=== PATIENT | male | born 1955 | race Caucasian/White ===

== ENCOUNTER 2019-07-23 10:16 | Outpatient (CLI) | payer BC, SELFPAY ==
[2019-07-23 10:37] LABS: Basophils Absolute Auto 0.1 K/mm3 (0.0-0.1); Basophils Percent Auto 1.4 % (0.2-1.2); Eosinophils Absolute Auto 0.2 K/mm3 (0-0.3); Eosinophils Percent Auto 4.7 % (0-4.4); Hematocrit 47.3 % (42.0-52.0); Hemoglobin 15.7 g/dL (14.0-18.0); Immature Granulocyte Absolute 0.01 K/mm3 (0.00-0.031); Immature Granulocyte Percent A 0.2 % (0-0.5); Lymphocytes Absolute Auto 1.47 K/mm3 (0.9-3.2); Lymphocytes Percent Auto 30.3 % (18.3-44.2); Mean Corpuscular HGB Conc 33.2 g/dl (32-36); Mean Corpuscular Hemoglobin 30.9 pg (26-34); Mean Corpuscular Volume 93.1 fl (80-100); Mean Platelet Volume 9.1 fl (7.4-10.4); Monocytes Absolute Auto 0.5 K/mm3 (0.1-0.6); Monocytes Percent Auto 10.9 % (2.6-8.5); Neutrophils Absolute Auto 2.5 K/mm3 (1.3-6.7); Neutrophils Percent Auto 52.5 % (45.5-73.1); Platelet Count Result 199 k/mm3 (150-375); Red Blood Count 5.08 M/mm3 (4.6-6.20); Red Cell Distribution Width 13.8 % (11.5-14.5); White Blood Count 4.9 K/mm3 (4.5-10.0)
[2019-07-23 10:49] LABS: Blood Urea Nitrogen 9 mg/dL (9-20); Calcium 9.2 mg/dL (8.4-10.2); Carbon Dioxide 30 mmol/L (22-30); Chloride 99 mmol/L (98-107); Cholesterol 116 mg/dL (0-200); Estimated Glomerular Filt Rate > 60; Glucose 116 mg/dL (75-110); HDL Direct 55 mg/dL; Potassium 3.9 mmol/L (3.4-5.0); Sodium 139 mmol/L (137-145); Triglycerides 95 mg/dL (<150)
[2019-07-23 10:53] LABS: Hemoglobin A1C 6.6 % (<5.7)
[2019-07-23 11:00] LABS: LDL Cholesterol Direct 45 mg/dL
[2019-07-23 11:18] LABS: Prostate Specific Antigen 2.5 ng/mL (< OR = 4.0)
[2019-07-25 13:18] LABS: Homocysteine 13.3 umol/L (<11.4)
== END 2019-07-23 10:17 | disposition home or self-care (01) ==
PROVIDERS: PCP Internal Medicine; Visit Provider Internal Medicine
DX: Z51.81 Encounter for therapeutic drug level monitoring (principal); Z12.5 Encounter for screening for malignant neoplasm of prostate; E78.2 Mixed hyperlipidemia; E11.9 Type 2 diabetes mellitus without complications
CPT/HCPCS: 36415; 80048; 80061; 83036; 83090; 84153; 84443; 85025

== ENCOUNTER 2019-11-24 10:15 | Outpatient (CLI) | payer BC, SELFPAY ==
[2019-11-24 11:17] LABS: Blood Urea Nitrogen 14 mg/dL (9-20); Carbon Dioxide 29 mmol/L (22-30); Chloride 102 mmol/L (98-107); Cholesterol 128 mg/dL (0-200); Estimated Glomerular Filt Rate > 60; Glucose 120 mg/dL (75-110); HDL Direct 68 mg/dL; Potassium 4.2 mmol/L (3.4-5.0); Sodium 138 mmol/L (137-145); Triglycerides 90 mg/dL (<150)
[2019-11-24 11:28] LABS: LDL Cholesterol Direct 46 mg/dL
[2019-11-24 11:45] LABS: Hemoglobin A1C 6.5 % (<5.7)
[2019-11-26 13:56] LABS: Homocysteine 13.6 umol/L (<11.4)
== END 2019-11-24 10:16 | disposition home or self-care (01) ==
PROVIDERS: PCP Internal Medicine; Visit Provider Internal Medicine
DX: R79.89 Other specified abnormal findings of blood chemistry (principal); E11.9 Type 2 diabetes mellitus without complications; Z79.899 Other long term (current) drug therapy
CPT/HCPCS: 36415; 80048; 80061; 83036; 83090

== ENCOUNTER 2019-12-30 01:13 | Outpatient (CLI) | payer BC, SELFPAY ==
[2019-12-30 18:35] LABS: SARS-CoV-2 RNA PCR Negative
== END 2019-12-30 01:14 | disposition home or self-care (01) ==
LOC: ANHCOVIDDT 01:13
PROVIDERS: PCP Internal Medicine; Visit Provider Urology
DX: Z01.812 Encounter for preprocedural laboratory examination (principal); Z11.59 Encounter for screening for other viral diseases
CPT/HCPCS: 87635; C9803; U0003

== ENCOUNTER 2019-12-30 08:09 | Outpatient (CLI) | payer BC, SELFPAY ==
[2019-12-30 08:48] LABS: INR 1.1; Prothrombin Time 13.6 Seconds (11.1-14.7)
[2019-12-30 08:49] LABS: Partial Thromboplastin Time 38.3 SECONDS (22.3-36.8)
== END 2019-12-30 08:10 | disposition home or self-care (01) ==
PROVIDERS: Anesthesiology; PCP Internal Medicine; Visit Provider Urology
DX: Z01.818 Encounter for other preprocedural examination (principal); E78.00 Pure hypercholesterolemia, unspecified; Z79.899 Other long term (current) drug therapy
CPT/HCPCS: 36415; 85610; 85730

== ENCOUNTER 2020-03-15 09:29 | Outpatient (CLI) | payer BC, SELFPAY ==
[2020-03-15 10:11] LABS: Hemoglobin A1C 6.2 % (<5.7)
[2020-03-15 10:14] LABS: Alanine Aminotransferase 37 U/L (4-50); Albumin Level 4.5 g/dL (3.5-5.1); Alkaline Phosphatase 37 U/L (38-126); Anion Gap 5 mmol/L (8-16); Aspartate Amino Transferase 37 U/L (17-59); Bilirubin,Total 0.3 mg/dL (0.2-1.3); Blood Urea Nitrogen 14 mg/dL (9-20); Calcium 9.3 mg/dL (8.4-10.2); Carbon Dioxide 35 mmol/L (22-30); Chloride 101 mmol/L (98-107); Cholesterol 130 mg/dL (0-200); Estimated Glomerular Filt Rate > 60; Glucose 119 mg/dL (75-110); HDL Direct 57 mg/dL; Potassium 4.3 mmol/L (3.4-5.0); Sodium 141 mmol/L (137-145); Triglycerides 107 mg/dL (<150)
[2020-03-15 10:25] LABS: LDL Cholesterol Direct 48 mg/dL
== END 2020-03-15 09:30 | disposition home or self-care (01) ==
PROVIDERS: PCP Internal Medicine; Visit Provider Internal Medicine
DX: E11.9 Type 2 diabetes mellitus without complications (principal); Z79.899 Other long term (current) drug therapy
CPT/HCPCS: 36415; 80053; 80061; 83036; 84443

== ENCOUNTER 2020-04-12 14:32 | Outpatient (CLI) | payer BC, SELFPAY ==
[2020-04-12 15:03] LABS: INR 2.7; Prothrombin Time 28.8 Seconds (11.1-14.7)
[2020-04-12 15:04] LABS: Partial Thromboplastin Time 38.8 SECONDS (22.3-36.8)
== END 2020-04-12 14:33 | disposition home or self-care (01) ==
LOC: ANHSURGERY 14:33
PROVIDERS: Anesthesiology; PCP Internal Medicine; Visit Provider Urology
DX: Z01.812 Encounter for preprocedural laboratory examination (principal); D68.51 Activated protein C resistance; N40.0 Benign prostatic hyperplasia without lower urinary tract symptoms
CPT/HCPCS: 36415; 85610; 85730

== ENCOUNTER 2020-04-19 00:08 | Outpatient (CLI) | payer BC, SELFPAY ==
[2020-04-19 20:45] LABS: SARS-CoV-2 RNA PCR Negative
== END 2020-04-19 00:09 | disposition home or self-care (01) ==
LOC: ANHCOVIDDT 00:09
PROVIDERS: PCP Internal Medicine; Visit Provider Urology
DX: Z01.812 Encounter for preprocedural laboratory examination (principal)
CPT/HCPCS: 87635; C9803; U0003

== ENCOUNTER 2020-04-22 00:29 | Day surgery (SDC) | payer BC, SELFPAY ==
--- NOTE | 2019-12-25 14:41 | PM.HPGS ---
History of Present Illness History of Present Illness Consent: Risks, benefits, and alternatives have been discussed and questions answered. Patient agrees to proceed with procedure. Chief complaint: BPH Narrative: Truman Cleaning is a 64 year old male with progressive prostatism becoming refractory to oral meds. After multiple long discussion about surgical options, he's elected for UroLift Review of Systems Cardiovascular: Cardiovascular: Denies chest pain, Denies lightheadedness, Denies palpitations and Denies dyspnea Respiratory: Respiratory: Denies dyspnea Gastrointestinal: Gastrointestinal: Denies diarrhea, Denies nausea and Denies vomiting Genitourinary: Genitourinary: Denies hematuria and Denies dysuria Endocrine: Endocrine: Denies palpitations PMFSH Past Medical History Medical History BMI 30.0-30.9,adult BPH (benign prostatic hyperplasia) Elevated homocysteine Encounter for general adult medical examination w/o abnormal findings Encounter for special screening examination for neoplasm of prostate Encounter for therapeutic drug level monitoring Factor 5 Leiden mutation, heterozygous On half-way drug therapy Skin lesion Squamous cell carcinoma Type 2 diabetes mellitus without complication Family History Family History Father Family history of diabetes mellitus in first degree relative Grandparent Diabetes mellitus Social History Social History Smoking status: Never smoker Second hand tobacco smoke exposure: No Alcohol intake: never Meds Home Medications and Allergies Home Medications Medication Instructions Recorded Confirmed Type ascorbate calcium (vitamin C) 500 500 mg PO DAILY 04/07/19 12/08/19 History mg tablet calcium carbonate 600 mg calcium 600 mg PO BID 04/07/19 12/08/19 History (1,500 mg) tablet multivitamin 1 tablet PO DAILY 04/07/19 12/08/19 History omega-3 fatty acids 1,000 mg 2,000 mg PO BID cap 04/07/19 12/08/19 History capsule turmeric 400 mg capsule mg PO 04/07/19 12/08/19 History finasteride 5 mg tablet 5 mg PO DAILY #90 tablet 08/04/19 12/08/19 Rx folic acid 1 mg tablet 1 mg PO DAILY #90 tablet 08/04/19 12/08/19 Rx niacin 1,000 mg tablet,extended 2,000 mg PO DAILY #180 tablet 08/04/19 12/08/19 Rx release rosuvastatin 5 mg tablet 5 mg PO DAILY #90 tablet 08/04/19 12/08/19 Rx metformin 500 mg tablet 500 mg PO BID #180 tablet 10/28/19 12/08/19 Rx calcium polycarbophil 625 mg tablet 2,500 mg PO DAILY tablet 12/08/19 12/08/19 History warfarin 1 mg tablet 1 mg PO DAILY #90 tablet 12/22/19 Rx warfarin 2 mg tablet 2 mg PO DAILY #90 tablet 12/22/19 Rx warfarin 5 mg tablet 5 mg PO DAILY #90 tablet 12/22/19 Rx enoxaparin 100 mg/mL subcutaneous 90 mg SUB-Q Q12H #20 syr 12/23/19 Rx syringe Allergies Allergy/AdvReac Type Severity Reaction Status Date / Time No Known Allergies Allergy Mild Verified 12/08/19 07:39 Exam Const: General: no acute distress Resp: Effort & Inspection: normal respiratory effort GI: Inspection: non-distended GI Palp: No abdominal tenderness and No Guarding due to palpation present (GI) Auscultation: normal bowel sounds Assessment and Plan Assessment and plan (1) BPH (benign prostatic hyperplasia): Qualifiers: Lower urinary tract symptom presence: unspecified whether lower urinary tract symptoms present Qualified Code(s): N40.0 - Benign prostatic hyperplasia without lower urinary tract symptoms Code(s): N40.0 - Benign prostatic hyperplasia without lower urinary tract symptoms Status: Acute Assessment and Plan: UroLift We've discussed alternative treatment options for bladder outlet obstruction, including TURP, Rezum, Green light laser and Urolift and he's elected for the later. He's aware of risks including, but not limi
[2019-12-26 09:26] VITALS: BMI 29.7
[2020-04-12 08:27] VITALS: BMI 30.5
--- NOTE | 2020-04-12 16:42 | PM.HPGS ---
History of Present Illness History of Present Illness Consent: Risks, benefits, and alternatives have been discussed and questions answered. Patient agrees to proceed with procedure. Chief complaint: BPH Narrative: Truman Cleaning is a 65 year old male Who is well known to our practice with a longstanding history of BPH dating back to at least 2015. He has failed attempts at medical management both with alpha blockers and 5 alpha reductase inhibitors. After discussion of therapeutic options he has elected for a Urolift. Cystoscopy in November 2019 revealed lateral lobe hyperplasia without a significant median lobe. Prostate volume by ultrasound was 29.6 cc. Last PSA in November 2019 was 2.5. Review of Systems Cardiovascular: Cardiovascular: Denies chest pain, Denies lightheadedness, Denies palpitations and Denies dyspnea Respiratory: Respiratory: Denies dyspnea Gastrointestinal: Gastrointestinal: Denies diarrhea, Denies nausea and Denies vomiting Genitourinary: Genitourinary: Denies hematuria and Denies dysuria Endocrine: Endocrine: Denies palpitations PMFSH Past Medical History Medical History BMI 30.0-30.9,adult BPH (benign prostatic hyperplasia) Elevated homocysteine Encounter for general adult medical examination w/o abnormal findings Encounter for special screening examination for neoplasm of prostate Encounter for therapeutic drug level monitoring Factor 5 Leiden mutation, heterozygous On nursing home drug therapy Skin lesion Squamous cell carcinoma Type 2 diabetes mellitus without complication Family History Family History Father Family history of diabetes mellitus in first degree relative Grandparent Diabetes mellitus Social History Social History Smoking status: Never smoker Second hand tobacco smoke exposure: No Alcohol intake: never Spiritual care concerns: No Meds Home Medications and Allergies Home Medications Medication Instructions Recorded Confirmed Type ascorbate calcium (vitamin C) 500 500 mg PO DAILY 04/07/19 04/12/20 History mg tablet calcium carbonate 600 mg calcium 600 mg PO BID 04/07/19 04/12/20 History (1,500 mg) tablet multivitamin 1 tablet PO DAILY 04/07/19 04/12/20 History omega-3 fatty acids 1,000 mg 2,000 mg PO BID cap 04/07/19 04/12/20 History capsule turmeric 400 mg capsule 400 mg PO DAILY 04/07/19 04/12/20 History niacin 1,000 mg tablet,extended 2,000 mg PO DAILY #180 tablet 08/04/19 04/12/20 Rx release metformin 500 mg tablet 500 mg PO BID #180 tablet 10/28/19 04/12/20 Rx calcium polycarbophil 625 mg tablet 2,500 mg PO DAILY tablet 12/08/19 04/12/20 History cyanocobalamin (vitamin B-12) 1,000 mcg PO DAILY 12/26/19 04/12/20 History [Vitamin B-12] rosuvastatin 5 mg PO EVERY OTHER DAY 12/26/19 04/12/20 History blood sugar diagnostic #100 each 02/17/20 Rx enoxaparin 30 mg/0.3 mL 88 mg SUBCUT Q12H 14 Days #3 ml 04/12/20 Rx subcutaneous syringe finasteride 5 mg PO HS 04/12/20 04/12/20 History folic acid 1 mg PO BID 04/12/20 04/12/20 History warfarin 8 mg PO DAILY 04/12/20 04/12/20 History Allergies Allergy/AdvReac Type Severity Reaction Status Date / Time No Known Allergies Allergy Mild Verified 04/12/20 08:06 Exam Const: General: no acute distress Resp: Effort & Inspection: normal respiratory effort GI: Inspection: non-distended GI Palp: No abdominal tenderness and No Guarding due to palpation present (GI) Auscultation: normal bowel sounds Assessment and Plan Assessment and plan (1) BPH (benign prostatic hyperplasia): Qualifiers: Lower urinary tract symptom presence: unspecified whether lower urinary tract symptoms present Qualified Code(s): N40.0 - Benign prostatic hyperplasia without lower urinary tract symptoms Code(s): N40.0 - Benign prostatic
[2020-04-22 06:08] VITALS: BP 125/75; PULSE 70; RESP 20; TEMP 36.4; O2SAT 99
[2020-04-22] MEDS: LACTATED RINGERS 1,000 ML 30 ML IV CONT (06:29)
--- NOTE | 2020-04-22 06:45 | WPDHPUPDATE1 ---
History and Physical Update Update Date/Time: 04/22/20 06:45 History and Physical has been reviewed, including an updated exam of the patient. There are NO changes in the patient's condition. Risks, benefits, and alternatives have been discussed and questions answered. Patient agrees to proceed with procedure.
--- NOTE | 2020-04-22 06:46 | WPDANESEPPF ---
Anes - Initial Pre Proc Eval Procedure: Operation Date: 04/22/20 07:30 Proposed Procedures p Urolift - Bayron Thibodeaux MD Date/Time: 04/22/20 06:46 Surgeon: Bayron Thibodeaux MD Pre Op Diagnosis: BPH Patient Data Age: 65 Gender: M Height: 5 ft 7 in Weight: 88.45 kg Allergies Allergy/AdvReac Type Severity Reaction Status Date / Time No Known Allergies Allergy Mild Verified 04/12/20 08:06 Home Medications Medication Instructions Recorded Confirmed Type ascorbate calcium (vitamin C) 500 500 mg PO DAILY 04/07/19 04/12/20 History mg tablet calcium carbonate 600 mg calcium 600 mg PO BID 04/07/19 04/12/20 History (1,500 mg) tablet multivitamin 1 tablet PO DAILY 04/07/19 04/12/20 History omega-3 fatty acids 1,000 mg 2,000 mg PO BID cap 04/07/19 04/12/20 History capsule turmeric 400 mg capsule 400 mg PO DAILY 04/07/19 04/12/20 History niacin 1,000 mg tablet,extended 2,000 mg PO DAILY #180 tablet 08/04/19 04/12/20 Rx release metformin 500 mg tablet 500 mg PO BID #180 tablet 10/28/19 04/12/20 Rx calcium polycarbophil 625 mg tablet 2,500 mg PO DAILY tablet 12/08/19 04/12/20 History cyanocobalamin (vitamin B-12) 1,000 mcg PO DAILY 12/26/19 04/12/20 History [Vitamin B-12] rosuvastatin 5 mg PO EVERY OTHER DAY 12/26/19 04/12/20 History blood sugar diagnostic #100 each 02/17/20 Rx folic acid 1 mg PO BID 04/12/20 04/12/20 History warfarin 8 mg PO DAILY 04/12/20 04/12/20 History finasteride 5 mg tablet See Rx Instructions .ROUTE 04/13/20 Rx .COMPLEX #30 tablet enoxaparin 80 mg/0.8 mL 80 mg SUBCUT Q12H 7 Days #14 syr 04/21/20 Rx subcutaneous syringe Patient hx anesthesia problems: none Family hx anesthesia problems: none PMFSH Past Medical History Medical History BMI 30.0-30.9,adult BPH (benign prostatic hyperplasia) Elevated homocysteine Encounter for general adult medical examination w/o abnormal findings Encounter for special screening examination for neoplasm of prostate Encounter for therapeutic drug level monitoring Factor 5 Leiden mutation, heterozygous On intermission coordinator drug therapy Skin lesion Squamous cell carcinoma Type 2 diabetes mellitus without complication Family History Family History Father Family history of diabetes mellitus in first degree relative Grandparent Diabetes mellitus Social History Social History Smoking status: Never smoker Second hand tobacco smoke exposure: No Alcohol intake: never Living arrangements: with family Spiritual care concerns: No Anes - Eval Final PreProcedure Day of Procedure 04/22/20 06:46 Patient weight: obese Heart: regular rate and rhythm Lungs: clear to auscultation Airway: Mallampati scale class II Neurological: alert and oriented Last oral intake: >/= 8 hours ASA classification: III Emergent: no Anesthetic plan: proceed Anesthesia type and monitoring: general GIVS and standard monitoring Informed Consent: The patient's anesthetic plan and its attendant risks and benefits were discussed with the patient/family/POA. Questions were solicited and answers provided to the satisfaction of the patient/family/POA.
[2020-04-22 06:52] LABS: Glucose Point of Care 113 (65-105)
[2020-04-22] MEDS: ceFAZolin 2 GM/D5W 50 ML 2 GM/50 ML BAG IVPB (07:19)
[2020-04-22] MEDS: LIDOCAINE HCL 2% GEL UROJET 10 ML PKG MUCOUS MEM (07:27)
--- NOTE | 2020-04-22 07:48 | P.OP_ITS ---
Procedure Note - Detailed Date of procedure: 04/22/20 Pre-op diagnosis: BPH Post-op diagnosis: same Procedure performed: UroLift Description of procedure: The patient was prepped and draped in a routine fashion after the uneventful induction of a general LMA anesthetic. A 20F cystoscope was inserted into the bladder. The cystoscopy bridge was replaced with a UroLift delivery device. The first treatment site was the patient's right side approximately 1.5cm distal to the bladder neck. The distal tip of the delivery device was then angled laterally approximately 20 degrees at this position to compress the lateral lobe. The trigger was pulled, thereby deploying a needle containing the implant through the prostate. The needle was then retracted, allowing one end of the implant to be delivered to the capsular surface of the prostate. The implant was then tensioned to assure capsular seating and removal of slack monofilament. The device was then angled back toward midline and slowly advanced proximally (typically 3 to 4 mm) until cystoscopic verification of the monofilament being centered in the delivery bay. The urethral end piece was then affixed to the monofilament thereby tailoring the size of the implant. Excess filament was then severed. The delivery device was then re-advanced into the bladder. The delivery device was then replaced with cystoscope and bridge and the implant location and opening effect was conf irmed cystoscopically. The same procedure was then repeated on the left side, and two additional implants were delivered just proximal to the verumontanum, again one on right and one on left side of the prostate, following the same technique. Therefore, a total of 4 implants were delivered. A final cystoscopy was conducted first to inspect the location and state of each implant and second, to confirm the presence of a continuous anterior channel was present through the prostatic urethra with irrigation flow turned off. The bladder was then filled with 150 cc irrigation fluid to assist the patient in void trial after the procedure, and all instruments were removed. At this point the cystoscope was removed and the patient was taken to the PACU in good condition. Anesthesia: GLMA Surgeon: Bayron Thibodeaux MD Estimated blood loss (mL): 0 Drains: No Packing: No Pathology: none sent Complications: No immediate complications Condition: stable Disposition: PACU
[2020-04-22 07:49] VITALS: BP 88/66; PULSE 65; RESP 10
[2020-04-22 08:00] VITALS: BP 96/61; PULSE 63; RESP 20; O2SAT 97
[2020-04-22 08:30] VITALS: BP 95/66; PULSE 58; RESP 20
--- NOTE | 2020-04-22 08:44 | SUR.PHASEII ---
[id number] - dr. blake in room talking with pt
[2020-04-22 09:00] VITALS: BP 109/75; PULSE 58; RESP 20
== END 2020-04-22 09:18 | disposition home or self-care (01) ==
PROVIDERS: PCP Internal Medicine; Visit Provider Urology
PROC: 0T7D8DZ Dilation of Urethra with Intraluminal Device, Via Natural or Artificial Opening Endoscopic (ICD-10-PCS; CPT 52441; principal; 2020-04-22 07:30)
DX: N40.1 Benign prostatic hyperplasia with lower urinary tract symptoms (principal); D68.51 Activated protein C resistance; E11.9 Type 2 diabetes mellitus without complications; Z79.84 Long term (current) use of oral hypoglycemic drugs; Z79.01 Long term (current) use of anticoagulants
CPT/HCPCS: 52441; 52442 ×3; A9270; J0690; J2250; J2704; J3010; J7120; L8699

== ENCOUNTER 2021-04-27 08:05 | Outpatient (CLI) | payer BC, SELFPAY ==
[2021-04-27 08:48] LABS: Basophils Absolute Auto 0.1 K/mm3 (0.0-0.1); Basophils Percent Auto 1.6 % (0.2-1.2); Eosinophils Absolute Auto 0.4 K/mm3 (0-0.3); Eosinophils Percent Auto 7.2 % (0-4.4); Hematocrit 45.7 % (42.0-52.0); Immature Granulocyte Absolute 0.01 K/mm3 (0.00-0.031); Immature Granulocyte Percent A 0.2 % (0-0.5); Lymphocytes Absolute Auto 1.57 K/mm3 (0.9-3.2); Lymphocytes Percent Auto 31.6 % (18.3-44.2); Mean Corpuscular HGB Conc 32.8 g/dl (32-36); Mean Corpuscular Hemoglobin 31.3 pg (26-34); Mean Corpuscular Volume 95.4 fl (80-100); Mean Platelet Volume 9.2 fl (7.4-10.4); Monocytes Absolute Auto 0.6 K/mm3 (0.1-0.6); Monocytes Percent Auto 11.9 % (2.6-8.5); Neutrophils Absolute Auto 2.4 K/mm3 (1.3-6.7); Neutrophils Percent Auto 47.5 % (45.5-73.1); Platelet Count Result 198 k/mm3 (150-375); Red Blood Count 4.79 M/mm3 (4.6-6.20); Red Cell Distribution Width 13.9 % (11.5-14.5)
[2021-04-27 09:00] LABS: Alanine Aminotransferase 44 U/L (4-50); Albumin Level 4.8 g/dL (3.5-5.1); Alkaline Phosphatase 38 U/L (38-126); Anion Gap 6 mmol/L (8-16); Aspartate Amino Transferase 40 U/L (17-59); Bilirubin,Total 0.4 mg/dL (0.2-1.3); Blood Urea Nitrogen 14 mg/dL (9-20); Calcium 9.5 mg/dL (8.4-10.2); Carbon Dioxide 31 mmol/L (22-30); Chloride 99 mmol/L (98-107); Cholesterol 141 mg/dL (0-200); Estimated Glomerular Filt Rate > 60; Glucose 116 mg/dL (65-110); HDL Direct 66 mg/dL; Potassium 4.1 mmol/L (3.4-5.0); Sodium 136 mmol/L (137-145); Triglycerides 93 mg/dL (<150)
[2021-04-27 09:11] LABS: LDL Cholesterol Direct 54 mg/dL
[2021-04-27 09:28] LABS: Iron 87 ug/dL (49-181)
[2021-04-27 09:37] LABS: Percent Iron Saturation 22 % (20-50)
[2021-04-27 09:40] LABS: Hemoglobin A1C 6.2 % (<5.7)
[2021-04-27 10:36] LABS: Creatinine Urine 152.7 mg/dL
[2021-04-27 10:41] LABS: MALB Creatinine Ratio 12.1 mg/g (0-30); Microalbumin Urine Random 18.5 mg/L (0-16.7)
== END 2021-04-27 08:06 | disposition home or self-care (01) ==
PROVIDERS: PCP Internal Medicine; Visit Provider Internal Medicine
DX: D68.51 Activated protein C resistance (principal); E11.9 Type 2 diabetes mellitus without complications; Z51.81 Encounter for therapeutic drug level monitoring; Z79.899 Other long term (current) drug therapy
CPT/HCPCS: 36415; 80053; 80061; 82043; 82728; 83036; 83540; 83550; 85025

== ENCOUNTER 2021-09-12 10:04 | Outpatient (CLI) | payer BC, SELFPAY ==
[2021-09-12 10:33] LABS: Alanine Aminotransferase 33 U/L (4-50); Albumin Level 4.4 g/dL (3.5-5.1); Alkaline Phosphatase 35 U/L (38-126); Anion Gap 5 mmol/L (8-16); Aspartate Amino Transferase 38 U/L (17-59); Bilirubin,Total 0.3 mg/dL (0.2-1.3); Blood Urea Nitrogen 15 mg/dL (9-20); Calcium 8.9 mg/dL (8.4-10.2); Carbon Dioxide 30 mmol/L (22-30); Chloride 103 mmol/L (98-107); Cholesterol 137 mg/dL (0-200); Estimated Glomerular Filt Rate > 60; Glucose 121 mg/dL (65-110); HDL Direct 62 mg/dL; Potassium 4.2 mmol/L (3.4-5.0); Sodium 138 mmol/L (137-145); Triglycerides 66 mg/dL (<150)
[2021-09-12 10:44] LABS: LDL Cholesterol Direct 46 mg/dL
[2021-09-12 11:03] LABS: Prostate Specific Antigen 3.6 ng/mL (< OR = 4.0)
[2021-09-12 11:20] LABS: Vitamin D 25 Hydroxy 53.8 ng/mL
== END 2021-09-12 10:05 | disposition home or self-care (01) ==
PROVIDERS: PCP Internal Medicine; Referring Provider Urology; Visit Provider Internal Medicine
DX: E11.9 Type 2 diabetes mellitus without complications (principal); Z12.5 Encounter for screening for malignant neoplasm of prostate; D68.51 Activated protein C resistance; Z79.899 Other long term (current) drug therapy
CPT/HCPCS: 36415; 80053; 80061; 82306; 83036; 84153; G0103

== ENCOUNTER 2022-01-30 08:27 | Outpatient (CLI) | payer BC, SELFPAY ==
[2022-01-30 19:02] LABS: Basophils Absolute Auto 0.1 K/mm3 (0.0-0.1); Basophils Percent Auto 2.4 % (0.2-1.2); Eosinophils Absolute Auto 0.3 K/mm3 (0-0.3); Eosinophils Percent Auto 7.4 % (0-4.4); Hematocrit 44.7 % (42.0-52.0); Hemoglobin 14.4 g/dL (14.0-18.0); Lymphocytes Absolute Auto 1.24 K/mm3 (0.9-3.2); Lymphocytes Percent Auto 29.7 % (18.3-44.2); Mean Corpuscular HGB Conc 32.2 g/dl (32-36); Mean Corpuscular Hemoglobin 30.7 pg (26-34); Mean Corpuscular Volume 95.3 fl (80-100); Mean Platelet Volume 9.7 fl (7.4-10.4); Monocytes Absolute Auto 0.7 K/mm3 (0.1-0.6); Monocytes Percent Auto 17.5 % (2.6-8.5); Neutrophils Absolute Auto 1.8 K/mm3 (1.3-6.7); Platelet Count Result 223 k/mm3 (150-375); Red Blood Count 4.69 M/mm3 (4.6-6.20); Red Cell Distribution Width 14.3 % (11.5-14.5); White Blood Count 4.2 K/mm3 (4.5-10.0)
[2022-01-30 19:17] LABS: Alanine Aminotransferase 37 U/L (6-50); Albumin Level 4.2 g/dL (3.5-5.1); Alkaline Phosphatase 39 U/L (38-126); Anion Gap 7 mmol/L (8-16); Aspartate Amino Transferase 51 U/L (17-59); Bilirubin,Total 0.3 mg/dL (0.2-1.3); Blood Urea Nitrogen 14 mg/dL (9-20); Calcium 9.3 mg/dL (8.4-10.2); Carbon Dioxide 31 mmol/L (22-30); Chloride 101 mmol/L (98-107); Cholesterol 126 mg/dL (0-200); Estimated Glomerular Filt Rate > 60; Glucose 106 mg/dL (65-110); HDL Direct 63 mg/dL; Potassium 4.3 mmol/L (3.4-5.0); Sodium 139 mmol/L (137-145); Triglycerides 64 mg/dL (<150)
[2022-01-30 19:34] LABS: LDL Cholesterol Direct 43 mg/dL
[2022-01-30 19:41] LABS: Hemoglobin A1C 6.1 % (<5.7)
[2022-01-30 19:42] LABS: Free T4 Free Thyroxine 1.18 ng/mL (0.78-2.19)
== END 2022-01-30 08:28 | disposition home or self-care (01) ==
LOC: ANHGOSHLAB 08:28
PROVIDERS: PCP Internal Medicine; Visit Provider Internal Medicine
DX: N40.0 Benign prostatic hyperplasia without lower urinary tract symptoms (principal); D68.51 Activated protein C resistance; E11.9 Type 2 diabetes mellitus without complications; Z79.899 Other long term (current) drug therapy
CPT/HCPCS: 36415; 80053; 80061; 83036; 84439; 84443; 85025

== ENCOUNTER 2022-03-07 09:01 | Outpatient (CLI) | payer MEDICARE, BC, SELFPAY ==
--- NOTE | ~2022-03-07 | CT_ITS ---
EXAMINATION: CT abdomen pelvis w con INDICATION: Multiple episodes of diverticulitis, abdominal pain TECHNIQUE: Computed tomographic images of the abdomen and pelvis were obtained after the administrati on of 100 cc of Omnipaque 350 intravenous contrast. The dose-length product (DLP) was 473.20 mGy-cm. Automated exposure control and iterative reconstruction technique were employed. COMPARISON: None available FINDINGS: Minimal dependent atelectasis is present in the lung bases. The heart size is normal. Cysts of the liver measure up to 16 mm. The spleen, pancreas, gallbladder, and adrenal glands are normal. There is a 2.9 cm soft tissue attenuation lesion of the lateral aspect of the right mid kidney. There is a 2.4 cm soft tissue attenuation lesion at the posteromedial aspect of the left kidney upper pole . Additional hypoattenuating lesions of the kidneys are too small to characterize. No pathologically enlarged abdominal or pelvic lymph nodes are identified. There is no free intraperitoneal gas or evid ence of bowel obstruction. Colonic diverticulosis is present without evidence of diverticulitis. The appendix is normal. There is severe lumbar spondylosis. There are surgical clips in the prostate. A surgical clip projects in the penis, possibly within the penile urethra. There are probable changes o f inguinal hernia repair. IMPRESSION: 1. Diverticulosis without evidence of diverticulitis. 2. Soft tissue attenuation masses of the kidneys which could reflect proteinaceous cysts versus solid neoplasm. Follow-up with CT or MRI without and with contrast is recommended. 3. Surgical clip in the penis, possibly within the penile urethra. Reviewed, dictated and finalized at location A. IMPRESSION: 1. Diverticulosis without evidence of diverticulitis. 2. Soft tissue attenuation masses of the kidneys which could reflect proteinace ous cysts versus solid neoplasm. Follow-up with CT or MRI without and with cont rast is recommended. 3. Surgical clip in the penis, possibly within the penile urethra.
[2022-03-07 09:32] LABS: Estimated Glomerular Filt Rate > 60
== END 2022-03-07 09:02 | disposition home or self-care (01) ==
LOC: ANHIMG 09:07
PROVIDERS: PCP Internal Medicine; Visit Provider Internal Medicine
DX: K57.90 Diverticulosis of intestine, part unspecified, without perforation or abscess without bleeding (principal); N28.89 Other specified disorders of kidney and ureter; Z96.89 Presence of other specified functional implants
CPT/HCPCS: 74177; Q9967

== ENCOUNTER 2022-03-21 06:49 | Outpatient (CLI) | payer MEDICARE, SELFPAY ==
--- NOTE | ~2022-03-21 | MR_ITS ---
EXAMINATION: MR renal wo/w con DATE: 03/21/2022 07:59 INDICATION: Kidney masses. TECHNIQUE: Magnetic resonance imaging (MRI) of the abdomen was performed without and with 18 mL Multi Jessica intravenous contrast. COMPARISON: CT abdomen and pelvis 03/07/2022 FINDINGS: There are cysts in the liver measuring up to 16 mm. The gallbladder, spleen, and adrenal glands are n ormal. There is incomplete pancreas divisum. There are hemorrhagic cysts in the kidneys measuring up to 3.2 cm on the right. There is a focal area of cortical thinning of left kidney. There are no dilat ed loops of bowel. There are no pathologically enlarged lymph nodes. There is no free intraperitoneal fluid. IMPRESSION: 1. Benign hemorrhagic cysts in the kidneys. Reviewed, dictated and finalized at location A.
== END 2022-03-21 06:50 | disposition home or self-care (01) ==
PROVIDERS: PCP Internal Medicine; Visit Provider Internal Medicine
DX: N28.89 Other specified disorders of kidney and ureter (principal); N28.1 Cyst of kidney, acquired
CPT/HCPCS: 74183; A9577

== ENCOUNTER 2022-06-09 09:24 | Outpatient (CLI) | payer MEDICARE, SELFPAY ==
[2022-06-09 10:39] LABS: Alanine Aminotransferase 44 U/L (6-50); Alkaline Phosphatase 35 U/L (38-126); Anion Gap 4 mmol/L (8-16); Aspartate Amino Transferase 39 U/L (17-59); Bilirubin,Total 0.5 mg/dL (0.2-1.3); Blood Urea Nitrogen 15 mg/dL (9-20); Calcium 8.8 mg/dL (8.4-10.2); Carbon Dioxide 31 mmol/L (22-30); Chloride 103 mmol/L (98-107); Cholesterol 122 mg/dL (0-200); Estimated Glomerular Filt Rate > 60; Glucose 186 mg/dL (65-110); HDL Direct 57 mg/dL; Potassium 4.3 mmol/L (3.4-5.0); Sodium 138 mmol/L (137-145); Triglycerides 74 mg/dL (<150)
[2022-06-09 10:50] LABS: LDL Cholesterol Direct 43 mg/dL
[2022-06-09 11:46] LABS: Folic Acid > 20.0 ng/mL (2.76->20); Vitamin B12 > 1000.0 pg/mL (239-931)
[2022-06-09 12:13] LABS: Hemoglobin A1C 6.5 % (<5.7)
== END 2022-06-09 09:25 | disposition home or self-care (01) ==
PROVIDERS: PCP Internal Medicine; Visit Provider Internal Medicine
DX: E11.9 Type 2 diabetes mellitus without complications (principal); E78.2 Mixed hyperlipidemia; E53.8 Deficiency of other specified B group vitamins; I10 Essential (primary) hypertension
CPT/HCPCS: 36415; 80053; 80061; 82607; 82746; 83036

== ENCOUNTER 2022-10-18 09:32 | Outpatient (CLI) | payer MEDICARE, SELFPAY ==
[2022-10-18 15:08] LABS: Basophils Absolute Auto 0.1 K/mm3 (0.0-0.1); Basophils Percent Auto 1.7 % (0.2-1.2); Eosinophils Absolute Auto 0.2 K/mm3 (0-0.3); Hematocrit 47.8 % (42.0-52.0); Hemoglobin 15.4 g/dL (14.0-18.0); Immature Granulocyte Absolute 0.01 K/mm3 (0.00-0.031); Immature Granulocyte Percent A 0.2 % (0-0.5); Lymphocytes Percent Auto 30.7 % (18.3-44.2); Mean Corpuscular HGB Conc 32.2 g/dl (32-36); Mean Corpuscular Hemoglobin 30.8 pg (26-34); Mean Corpuscular Volume 95.6 fl (80-100); Mean Platelet Volume 9.8 fl (7.4-10.4); Monocytes Absolute Auto 0.5 K/mm3 (0.1-0.6); Monocytes Percent Auto 10.9 % (2.6-8.5); Neutrophils Absolute Auto 2.2 K/mm3 (1.3-6.7); Neutrophils Percent Auto 51.5 % (45.5-73.1); Platelet Count Result 213 k/mm3 (150-375); Red Cell Distribution Width 14.9 % (11.5-14.5); White Blood Count 4.2 K/mm3 (4.5-10.0)
[2022-10-18 15:48] LABS: Hemoglobin A1C 6.2 % (<5.7)
[2022-10-18 16:03] LABS: Creatinine Urine 197.3 mg/dL
[2022-10-18 16:08] LABS: MALB Creatinine Ratio 11.4 mg/g (0-30); Microalbumin Urine Random 22.4 mg/L (0-16.7)
[2022-10-18 16:16] LABS: Alanine Aminotransferase 40 U/L (6-50); Albumin Level 4.5 g/dL (3.5-5.1); Alkaline Phosphatase 33 U/L (38-126); Anion Gap 4 mmol/L (8-16); Aspartate Amino Transferase 60 U/L (17-59); Bilirubin,Total 0.5 mg/dL (0.2-1.3); Blood Urea Nitrogen 18 mg/dL (9-20); Calcium 9.3 mg/dL (8.4-10.2); Carbon Dioxide 33 mmol/L (22-30); Chloride 100 mmol/L (98-107); Cholesterol 124 mg/dL (0-200); Estimated Glomerular Filt Rate > 60; Glucose 117 mg/dL (65-110); HDL Direct 65 mg/dL; Potassium 4.6 mmol/L (3.4-5.0); Sodium 137 mmol/L (137-145); Triglycerides 64 mg/dL (<150)
[2022-10-18 16:45] LABS: Prostate Specific Antigen 5.5 ng/mL (< OR = 4.0)
[2022-10-18 16:54] LABS: Free T4 Free Thyroxine 1.49 ng/mL (0.78-2.19)
[2022-10-18 17:20] LABS: LDL Cholesterol Direct 41 mg/dL
== END 2022-10-18 09:33 | disposition home or self-care (01) ==
LOC: ANHGOSHLAB 09:35
PROVIDERS: PCP Internal Medicine; Visit Provider Internal Medicine
DX: E78.2 Mixed hyperlipidemia (principal); Z13.29 Encounter for screening for other suspected endocrine disorder; Z12.5 Encounter for screening for malignant neoplasm of prostate; I10 Essential (primary) hypertension; E11.9 Type 2 diabetes mellitus without complications; Z79.899 Other long term (current) drug therapy
CPT/HCPCS: 36415; 80053; 80061; 82043; 83036; 84153; 84439; 84443; 85025; G0103

== ENCOUNTER 2022-10-26 09:26 | Outpatient (CLI) | payer MEDICARE, SELFPAY ==
[2022-10-26 13:00] LABS: Magnesium 1.9 mg/dL (1.6-2.3)
== END 2022-10-26 09:27 | disposition home or self-care (01) ==
LOC: ANHGOSHLAB 09:26
PROVIDERS: PCP Internal Medicine; Visit Provider Internal Medicine
DX: I49.9 Cardiac arrhythmia, unspecified (principal); Z79.899 Other long term (current) drug therapy
CPT/HCPCS: 36415; 83735

== ENCOUNTER 2022-11-18 12:37 | Outpatient (CLI) | payer MEDICARE, BC, SELFPAY ==
--- NOTE | 2022-11-18 12:40 | ECHO_ITS ---
Patient Info Name: Truman Cleaning Age: 67 years : 1955 Gender: Male Ht: 67 in Wt: 188 lbs BSA: 2.03 m2 HR: 78 bpm BP: 103 / 77 mmHg Heart Rhythm: Atrial Fibrillation Technical Quality: Good Exam Date: 11/18/2022 1:02 PM Exam Location: [facility] Card Pulmonary Patient Status: Outpatient Admit Date: 11/18/2022 Staff Ordering Physician: Toño Anthony MD Mold Checker: Raymond Traore RDCS Attending Provider: Toño Anthony MD Referring Physician: Raj LAL; Exam Type: CA echo doppler color flow Study Info Complete two-dimensional, color flow and Doppler transthoracic echocardiogram is performed. Summary 1. Complete two-dimensional, color flow and Doppler transthoracic echocardiogram is performed. 2. Left ventricular chamber dimension is normal. 3. Left ventricular systolic function is normal, estimated at 55-60%. 4. There is mildly increased left ventricular wall thickness. 5. The left ventricular diastolic function is indeterminate. 6. The mitral valve has normal leaflets. Straightening of the leaflets is noted without clear prolapse. 7. There is mild mitral valve regurgitation. 8. The mitral valve annulus is mildly calcified. 9. There is mild tricuspid valve regurgitation. 10. No pulmonary hypertension, estimated pulmonary arterial systolic pressure is 21 mmHg. Left Ventricle Left ventricular chamber dimension is normal. Left ventricular systolic function is normal, estimated at 55-60%. There is mildly increased left ventricular wall thickness. The left ventricular diastolic function is indeterminate. Right Ventricle Right ventricular chamber dimension is normal. Right ventricular systolic function is normal. Left Atria Left atrial chamber dimension is normal. Right Atria Right atrial chamber dimension is mildly enlarged. Aortic Valve The aortic valve is probable trileaflet. There is no aortic valve stenosis. There is no aortic valve regurgitation. Pulmonic Valve The pulmonic valve is not well visualized. Mitral Valve The mitral valve has normal leaflets. Straightening of the leaflets is noted without clear prolapse. There is mild mitral valve regurgitation. The mitral valve annulus is mildly calcified. Tricuspid Valve The tricuspid valve leaflets are normal. There is mild tricuspid valve regurgitation. No pulmonary hypertension, estimated pulmonary arterial systolic pressure is 21 mmHg. Pericardium/Pleural The pericardium appears normal. There is trivial pericardial effusion. Inferior Vena Cava Inferior vena cava is not well visualized. Aorta The aortic root size at the sinus of Valsalva is normal. Left Ventricular Outflow Tract Name Value Normal LVOT 2D LVOT Diameter 2.3 cm LVOT Doppler LVOT Peak Gradient 2 mmHg LVOT Mean Gradient 1 mmHg LVOT VTI 12 cm LVOT VTI/AV VTI Ratio 1.0 LVOT Stroke Volume 51 ml LVOT CO 4.1 l/min LVOT CI 2.0 l/min/m2 Pulmonic Valve Name
--- NOTE | 2022-11-23 15:51 | WPDHOLTEREM ---
Holter/Event Monitor Holter/Event Monitor Date of procedure: 11/18/22 Holter/Event Procedure: 48 Hr Holter Monitor Indications: Atrial fibrillation Conclusion: 1. 48 hour holter monitor on 11/18/22. 2. Underlying rhythm is atrial flutter. HR range 40-218 bpm; average 105 bpm. HR at 40 bpm was at 03:26; HR at 218 bpm was at 06:49. 3. No other supraventricular arrhythmias. 4. There are 549 premature ventricular complexes, 6 ventricular couplets, 3 ventricular trigeminy. No ventricular tachycardia. 5. The longest pause is 2.4 seconds at 03:10. 6. Patient reports symptoms of palpitations, shortness of breath which demonstrate atrial flutter, HR range 92-128 bpm.
== END 2022-11-18 12:38 | disposition home or self-care (01) ==
LOC: ANHCARD 12:38
PROVIDERS: PCP Internal Medicine; Visit Provider Internal Medicine
DX: I48.91 Unspecified atrial fibrillation (principal); I49.9 Cardiac arrhythmia, unspecified; R94.31 Abnormal electrocardiogram [ECG] [EKG]; I36.1 Nonrheumatic tricuspid (valve) insufficiency; I34.0 Nonrheumatic mitral (valve) insufficiency
CPT/HCPCS: 93225; 93226; 93306

== ENCOUNTER 2023-02-22 02:42 | Day surgery (SDC) | payer MEDICARE, SELFPAY ==
[2023-02-21 14:45] VITALS: BMI 29.0
[2023-02-22] VITALS (23 sets, daily range): BP systolic 63–107; BP diastolic 47–76; PULSE 58–78; RESP 12–16; TEMP 37.2; O2SAT 93–99; BMI 28.8
--- NOTE | 2023-02-22 07:00 | ECG_ITS ---
Measurements Intervals [place] Rate: 65 P: 36 SC: 194 QRS: -27 QRSD: 100 T: 7 QT: 421 QTc: 438 Interpretive Statements SINUS RHYTHM BORDERLINE LEFT AXIS DEVIATION [QRS AXIS < -20] INCOMPLETE RIGHT BUNDLE BRANCH BLOCK [90+ ms QRS DURATION, TERMINAL R IN V1/V2, 40+ ms S IN I/aVL/V4/V5/V6] COMPARED TO ECG 02/22/2023 07:23:15 SINUS RHYTHM NOW PRESENT Electronically Signed On 02-22-2023 12:46:00 CDT by Fabio Knox M.D.
--- NOTE | 2023-02-22 07:00 | ECG_ITS ---
Measurements Intervals [place] Rate: 80 P: IN: 0 QRS: -26 QRSD: 118 T: 18 QT: 387 QTc: 449 Interpretive Statements ATRIAL FIBRILLATION BORDERLINE LEFT AXIS DEVIATION [QRS AXIS < -20] INCOMPLETE RIGHT BUNDLE BRANCH BLOCK [90+ ms QRS DURATION, TERMINAL R IN V1/V2, 40+ ms S IN I/aVL/V4/V5/V6] ABNORMAL RHYTHM ECG NO PREVIOUS ECG AVAILABLE FOR COMPARISON Electronically Signed On 02-22-2023 12:45:06 CDT by Fabio Knox M.D.
[2023-02-22] MEDS: SODIUM CHLORIDE 0.9% IV 1,000 ML 30 ML IV CONT (07:38)
[2023-02-22 07:52] LABS: Anion Gap 3 mmol/L (8-16); Blood Urea Nitrogen 16 mg/dL (9-20); Calcium 8.9 mg/dL (8.4-10.2); Carbon Dioxide 33 mmol/L (22-30); Chloride 102 mmol/L (98-107); Estimated CRCL calculation 60 ml/min; Estimated Glomerular Filt Rate > 60; Glucose 114 mg/dL (65-110); Magnesium 1.8 mg/dL (1.6-2.3); Potassium 4.1 mmol/L (3.4-5.0); Sodium 138 mmol/L (137-145)
[2023-02-22 08:22] LABS: Prothrombin Time 24.4 Seconds (11.1-14.7)
--- NOTE | 2023-02-22 09:12 | PM.IMHP ---
H&P: HPI History of Present Illness Date/Time: 02/22/23 09:12 Chief Complaint: Atrial fibrillation Narrative: Patient is a 68 year old male who presents for outpatient elective cardioversion for atrial fibrillation. INR today at 2.0. Patient feeling well this morning. Review of Systems Review of Systems: All systems reviewed & are unremarkable except as noted in HPI and below (HPI) [facility] Past Medical History Medical History BMI 29.0-29.9,adult BMI 30.0-30.9,adult BMI 31.0-31.9,adult BPH (benign prostatic hyperplasia) Cervicalgia Change in bowel habits Diabetes mellitus with microalbuminuria Diplopia DJD (degenerative joint disease), multiple sites Dupuytren's contracture of right hand Elevated homocysteine Elevated PSA Encounter for general adult medical examination w/o abnormal findings Encounter for Medicare annual wellness exam Encounter for preventive health examination Encounter for routine adult health examination with abnormal findings Encounter for special screening examination for neoplasm of prostate Encounter for therapeutic drug level monitoring Facial paresthesia Factor 5 Leiden mutation, heterozygous History of diverticulitis Light headed LLQ abdominal pain On mcc drug therapy Pain in both hands Primary osteoarthritis involving multiple joints Renal cysts, acquired, bilateral Skin lesion Squamous cell carcinoma Trapezius muscle spasm Type 2 diabetes mellitus without complication Surgical History Surgical History S/P urological surgery Family History Family History Father Family history of diabetes mellitus in first degree relative Grandparent Diabetes mellitus Social History Social History Smoking status: Never smoker Second hand tobacco smoke exposure: No Alcohol intake: never Substance use: never Substance use type: does not use Lack of Transportation: No Lack of Food: Never True Current Housing: I Have Housing Concerned About Future Housing: No Difficulty Paying Gas/Electric Bills: No Difficulty Paying for Meds: No Currently Unemployed: No Education: Master's Degree or Higher Difficulty w/ Childcare or Family Care: No Living arrangements: with family Gender identity (if verbalized by the patient): Male Spiritual care concerns: No Meds Home Medications and Allergies Home Medications Medication Instructions Recorded Confirmed Type ascorbate calcium (vitamin C) 500 500 mg PO DAILY 04/07/19 02/21/23 History mg tablet multivitamin 1 tablet PO DAILY 04/07/19 02/22/23 History omega-3 fatty acids 1,000 mg 2,000 mg PO BID 04/07/19 02/21/23 History capsule (Fish Oil Concentrate) niacin 1,000 mg tablet,extended 2,000 mg PO DAILY #180 tabs 08/04/19 02/22/23 Rx release calcium polycarbophil 625 mg 2,500 mg PO DAILY 12/08/19 02/22/23 History tablet (FiberCon) cyanocobalamin (vitamin B-12) 1,000 mcg PO DAILY 12/26/19 02/22/23 History 1,000 mcg tablet (Vitamin B-12) folic acid 1 mg tablet 1 mg PO BID 04/12/20 02/22/23 History blood sugar diagnostic (OneTouch See Rx Instructions .Route 04/11/22 10/27/22 Rx Ultra Test strips) .COMPLEX #100 ea metformin 500 mg tablet See Rx Instructions .Route 10/18/22 02/21/23 Rx .COMPLEX #180 tabs rosuvastatin 5 mg tablet 5 mg PO EVERY OTHER DAY #90 tabs 10/18/22 02/21/23 Rx warfarin 1 mg tablet See Rx Instructions .Route 10/18/22 02/21/23 Rx .COMPLEX #90 tabs warfarin 2 mg tablet See Rx Instructions .Route 10/18/22 02/21/23 Rx .COMPLEX #90 tabs warfarin 4 mg tablet See Rx Instructions .Route 10/18/22 02/21/23 Rx .COMPLEX #180 tabs warfarin 5 mg tablet See Rx Instructions .Route 10/18/22 02/21/23 Rx .COMPLEX #90 tabs metoprolol succinate 25 mg capsule 25 mg PO DAILY 01/19/23 10
--- NOTE | 2023-02-22 09:13 | P.SEDATION_ITS ---
Moderate Sedation Note-Pt Data Patient Data Diagnosis: Atrial fibrillation Present Complaint: Atrial fibrillation Procedure to be performed/Plan: Cardioversion Allergies Allergy/AdvReac Type Severity Reaction Status Date / Time No Known Allergies Allergy Mild Verified 02/22/23 07:24 Home Medications Medication Instructions Recorded Confirmed Type ascorbate calcium (vitamin C) 500 500 mg PO DAILY 04/07/19 02/21/23 History mg tablet multivitamin 1 tablet PO DAILY 04/07/19 02/22/23 History omega-3 fatty acids 1,000 mg 2,000 mg PO BID 04/07/19 02/21/23 History capsule (Fish Oil Concentrate) niacin 1,000 mg tablet,extended 2,000 mg PO DAILY #180 tabs 08/04/19 02/22/23 Rx release calcium polycarbophil 625 mg 2,500 mg PO DAILY 12/08/19 02/22/23 History tablet (FiberCon) cyanocobalamin (vitamin B-12) 1,000 mcg PO DAILY 12/26/19 02/22/23 History 1,000 mcg tablet (Vitamin B-12) folic acid 1 mg tablet 1 mg PO BID 04/12/20 02/22/23 History blood sugar diagnostic (OneTouch See Rx Instructions .Route 04/11/22 10/27/22 Rx Ultra Test strips) .COMPLEX #100 ea metformin 500 mg tablet See Rx Instructions .Route 10/18/22 02/21/23 Rx .COMPLEX #180 tabs rosuvastatin 5 mg tablet 5 mg PO EVERY OTHER DAY #90 tabs 10/18/22 02/21/23 Rx warfarin 1 mg tablet See Rx Instructions .Route 10/18/22 02/21/23 Rx .COMPLEX #90 tabs warfarin 2 mg tablet See Rx Instructions .Route 10/18/22 02/21/23 Rx .COMPLEX #90 tabs warfarin 4 mg tablet See Rx Instructions .Route 10/18/22 02/21/23 Rx .COMPLEX #180 tabs warfarin 5 mg tablet See Rx Instructions .Route 10/18/22 02/21/23 Rx .COMPLEX #90 tabs metoprolol succinate 25 mg capsule 25 mg PO DAILY 01/19/23 02/21/23 History sprinkle, ext. release 24 hr Calcium with Vitamin D 1 tablet BYMOUTH DAILY 02/21/23 02/22/23 History flecainide 50 mg tablet 50 mg PO BID 02/21/23 02/22/23 History Current Medications: Active Medications Sodium Chloride (Normal Saline Iv) 1,000 mls @ 30 mls/hr IV CONT .Q24H SCOTT Last Admin: 02/22/23 07:38 Dose: 30 mls/hr Sedation/Anesthesia: No previous sedation/anesthesia problems (including family history). PMFSH Past Medical History Medical History BMI 29.0-29.9,adult BMI 30.0-30.9,adult BMI 31.0-31.9,adult BPH (benign prostatic hyperplasia) Cervicalgia Change in bowel habits Diabetes mellitus with microalbuminuria Diplopia DJD (degenerative joint disease), multiple sites Dupuytren's contracture of right hand Elevated homocysteine Elevated PSA Encounter for general adult medical examination w/o abnormal findings Encounter for Medicare annual wellness exam Encounter for preventive health examination Encounter for routine adult health examination with abnormal findings Encounter for special screening examination for neoplasm of prostate Encounter for therapeutic drug level monitoring Facial paresthesia Factor 5 Leiden mutation, heterozygous History of diverticulitis Light headed LLQ abdominal pain On ocean transportation intermediary drug therapy Pain in both hands Primary osteoarthritis involving multiple joints Renal cysts, acquired, bilateral Skin lesion Squamous cell carcinoma Trapezius muscle spasm Type 2 diabetes mellitus without complica
--- NOTE | 2023-02-22 09:14 | P.PCNCVR_ITS ---
Cardioversion Cardioversion Date of procedure: 02/22/23 Procedure: Synchronized electrical cardioversion Pre-op diagnosis: Atrial fibrillation Post-op diagnosis: Other (Successful cardioversion to sinus rhythm ) Indications: Atrial fibrillation Description of procedure: [facility] an outpatient elective synchronized cardioversion. Procedure discussed with the patient, including risks vs benefits. Written informed consent obtained. While obtaining IV access, patient had a vagal response and became hypotensive with SBP down to the 60s, which recovered with IVFs to the 90s systolics. Patient feeling well at that time. He remained electrically stable throughout. As patient's blood pressure had normalized and he was feeling well, we decided to proceed with cardioversion. Defibrillator pads placed in an AP position. Patient's hemodynamics and respiratory status monitored throughout. Time out performed by DASIA Claros. Total of Propofol 60mg IV was administered by me. Once patient was adequately sedation, synchronized cardioversion was performed at 200 joules with successful protestant of sinus rhythm with 1 shock. Procedure start time: 09:00 Procedure end time: 09:10 Sedation: Total of Propofol 60mg IV Findings: Successful cardioversion to sinus rhythm with 1 shock at 200 joules. Conclusion: Successful cardioversion to sinus rhythm with 1 shock at 200 joules.
== END 2023-02-22 10:25 | disposition home or self-care (01) ==
PROVIDERS: PCP Internal Medicine; Visit Provider Internal Medicine
PROC: 5A2204Z Restoration of Cardiac Rhythm, Single (ICD-10-PCS; principal; 2023-02-22 08:30)
DX: I48.91 Unspecified atrial fibrillation (principal); E11.9 Type 2 diabetes mellitus without complications; N40.0 Benign prostatic hyperplasia without lower urinary tract symptoms; D68.51 Activated protein C resistance; Z79.84 Long term (current) use of oral hypoglycemic drugs; Z79.01 Long term (current) use of anticoagulants
CPT/HCPCS: 36415; 80048; 83735; 85610; 92960; J0461; J2250; J2371; J2704; J3010; J7030

== ENCOUNTER 2023-03-01 08:31 | Outpatient (CLI) | payer MEDICARE, SELFPAY ==
[2023-03-01 19:47] LABS: Alanine Aminotransferase 55 U/L (6-50); Albumin Level 4.1 g/dL (3.5-5.1); Alkaline Phosphatase 38 U/L (38-126); Anion Gap 4 mmol/L (8-16); Aspartate Amino Transferase 49 U/L (17-59); Bilirubin,Total 0.4 mg/dL (0.2-1.3); Blood Urea Nitrogen 15 mg/dL (9-20); Calcium 9.4 mg/dL (8.4-10.2); Carbon Dioxide 34 mmol/L (22-30); Chloride 100 mmol/L (98-107); Cholesterol 126 mg/dL (0-200); Estimated Glomerular Filt Rate > 60; Glucose 103 mg/dL (65-110); HDL Direct 58 mg/dL; Potassium 4.1 mmol/L (3.4-5.0); Sodium 138 mmol/L (137-145); Triglycerides 99 mg/dL (<150)
[2023-03-01 19:59] LABS: LDL Cholesterol Direct 51 mg/dL
[2023-03-01 20:17] LABS: Prostate Specific Antigen 4.3 ng/mL (< OR = 4.0)
[2023-03-01 21:07] LABS: Hemoglobin A1C 6.2 % (<5.7)
== END 2023-03-01 08:32 | disposition home or self-care (01) ==
PROVIDERS: PCP Internal Medicine; Referring Provider Urology; Visit Provider Internal Medicine
DX: E11.9 Type 2 diabetes mellitus without complications (principal); E78.2 Mixed hyperlipidemia; Z79.899 Other long term (current) drug therapy; R97.20 Elevated prostate specific antigen [PSA]
CPT/HCPCS: 36415; 80053; 80061; 83036; 84153

== ENCOUNTER 2023-07-11 10:30 | Outpatient (CLI) | payer MEDICARE, SELFPAY ==
[2023-07-11 13:39] LABS: Basophils Absolute Auto 0.1 K/mm3 (0.0-0.1); Eosinophils Absolute Auto 0.3 K/mm3 (0-0.3); Hematocrit 49.4 % (42.0-52.0); Hemoglobin 16.1 g/dL (14.0-18.0); Immature Granulocyte Absolute 0.03 K/mm3 (0.00-0.031); Immature Granulocyte Percent A 0.5 % (0-0.5); Lymphocytes Absolute Auto 1.34 K/mm3 (0.9-3.2); Lymphocytes Percent Auto 21.5 % (18.3-44.2); Mean Corpuscular HGB Conc 32.6 g/dl (32-36); Mean Corpuscular Hemoglobin 32.1 pg (26-34); Mean Corpuscular Volume 98.4 fl (80-100); Mean Platelet Volume 9.8 fl (7.4-10.4); Monocytes Absolute Auto 0.7 K/mm3 (0.1-0.6); Monocytes Percent Auto 11.1 % (2.6-8.5); Neutrophils Absolute Auto 3.9 K/mm3 (1.3-6.7); Neutrophils Percent Auto 61.9 % (45.5-73.1); Platelet Count Result 189 k/mm3 (150-375); Red Blood Count 5.02 M/mm3 (4.6-6.20); Red Cell Distribution Width 14.6 % (11.5-14.5); White Blood Count 6.2 K/mm3 (4.5-10.0)
[2023-07-11 14:14] LABS: Hemoglobin A1C 6.7 % (<5.7)
[2023-07-11 14:16] LABS: Alanine Aminotransferase 47 U/L (6-50); Albumin Level 4.4 g/dL (3.5-5.1); Alkaline Phosphatase 40 U/L (38-126); Anion Gap 1 mmol/L (8-16); Aspartate Amino Transferase 92 U/L (17-59); Bilirubin,Total 1.1 mg/dL (0.2-1.3); Blood Urea Nitrogen 15 mg/dL (9-20); Calcium 9.7 mg/dL (8.4-10.2); Carbon Dioxide 35 mmol/L (22-30); Chloride 100 mmol/L (98-107); Cholesterol 136 mg/dL (0-200); Estimated Glomerular Filt Rate > 60; Glucose 123 mg/dL (65-110); HDL Direct 57 mg/dL; Potassium 4.2 mmol/L (3.4-5.0); Sodium 136 mmol/L (137-145); Triglycerides 93 mg/dL (<150)
[2023-07-11 14:27] LABS: LDL Cholesterol Direct 58 mg/dL
[2023-07-11 14:29] LABS: Iron 183 ug/dL (49-181)
[2023-07-11 14:40] LABS: Percent Iron Saturation 52 % (20-50)
[2023-07-11 14:42] LABS: Vitamin D 25 Hydroxy 50.6 ng/mL
== END 2023-07-11 10:31 | disposition home or self-care (01) ==
PROVIDERS: PCP Internal Medicine; Visit Provider Internal Medicine
DX: E55.9 Vitamin D deficiency, unspecified (principal); E11.9 Type 2 diabetes mellitus without complications; E78.2 Mixed hyperlipidemia; D64.9 Anemia, unspecified; Z79.899 Other long term (current) drug therapy
CPT/HCPCS: 36415; 80053; 80061; 82306; 82728; 83036; 83540; 83550; 85025; 85610

== ENCOUNTER 2023-07-12 14:47 | Outpatient (CLI) | payer MEDICARE, SELFPAY ==
[2023-07-12 17:35] LABS: Hepatitis B Surface Antigen Negative (Negative)
[2023-07-12 17:41] LABS: HAV RESULT Negative (Negative); Hepatitis B Core IgM Result Negative (Negative)
[2023-07-12 17:53] LABS: Hepatitis C Virus Antibody Negative (Negative)
== END 2023-07-12 14:48 | disposition home or self-care (01) ==
LOC: ANHGOSHLAB 14:50
PROVIDERS: Visit Provider Internal Medicine
DX: R94.5 Abnormal results of liver function studies (principal); R74.8 Abnormal levels of other serum enzymes
CPT/HCPCS: 36415; 80074; 85610

== ENCOUNTER 2023-07-16 11:21 | Outpatient (CLI) | payer MEDICARE, SELFPAY ==
--- NOTE | ~2023-07-16 | US_ITS ---
Limited Abdominal Sonogram: Real-time sonographic imaging of the right upper quadrant was performed. Clinical History: Abnormal serum enzyme levels Findings: The liver appears normal with no evidence of solid mass lesion or bile duct dilatation. He patic cyst noted. Main portal vein demonstrates normal direction of flow. The gallbladder is well dis tended, without evidence of gallstone. There is gallbladder wall thickening up to 8 mm. The common bi le duct measures 3 mm. The visualized pancreas, aorta, and IVC are unremarkable. Impression: Gallbladder wall thickening, uncertain etiology. No gallstone evident. Reviewed, dictated and finalized at location M. [employer] Impression: Gallbladder wall thickening, uncertain etiology. No gallstone evident.
== END 2023-07-16 11:22 ==
PROVIDERS: PCP Internal Medicine; Visit Provider Internal Medicine
DX: R74.8 Abnormal levels of other serum enzymes (principal); K82.8 Other specified diseases of gallbladder
CPT/HCPCS: 76705

== ENCOUNTER 2023-08-07 09:46 | Outpatient (RCR) | payer MEDICARE, SELFPAY ==
[2023-07-05 18:48] LABS: INR 1.9
[2023-07-11 13:47] LABS: INR 1.8; Prothrombin Time 21.9 Seconds (11.1-14.7)
[2023-07-12 19:31] LABS: INR 1.8; Prothrombin Time 22.4 Seconds (11.1-14.7)
[2023-08-07 14:11] LABS: INR 2.2; Prothrombin Time 26.5 Seconds (11.1-14.7)
== END 2023-10-03 23:59 | disposition home or self-care (01) ==
LOC: ANHGOSHLAB 09:46
PROVIDERS: PCP Internal Medicine; Visit Provider Internal Medicine
DX: D68.9 Coagulation defect, unspecified (principal)
CPT/HCPCS: 36415; 85610

== ENCOUNTER 2023-08-07 09:48 | Outpatient (CLI) | payer MEDICARE, SELFPAY ==
[2023-08-07 13:41] LABS: Alanine Aminotransferase 52 U/L (6-50); Albumin Level 4.2 g/dL (3.5-5.1); Alkaline Phosphatase 41 U/L (38-126); Aspartate Amino Transferase 69 U/L (17-59); Bilirubin,Total 0.8 mg/dL (0.2-1.3)
[2023-08-09 14:58] LABS: GGT 15 U/L (3-70)
== END 2023-08-07 09:49 | disposition home or self-care (01) ==
PROVIDERS: PCP Internal Medicine; Visit Provider Internal Medicine
DX: R74.8 Abnormal levels of other serum enzymes (principal)
CPT/HCPCS: 36415; 80076; 82977; 85610

== ENCOUNTER 2023-10-25 14:54 | Inpatient (IN) | payer MEDICARE, SELFPAY ==
[2023-10-25] VITALS (13 sets, daily range): BP systolic 75–118; BP diastolic 50–86; PULSE 72–83; RESP 13–20; TEMP 36.6–36.9; O2SAT 95–100; BMI 28.5
--- NOTE | ~2023-10-25 | XR_ITS ---
XR chest port-a-cath/central Ordering provider: Leeanna Leavitt MD History: 68 years Male with . Central line insertion . Comparison: None. FINDINGS: MEDIASTINUM: The cardiac silhouette is not enlarged. Right central line with the tip overlying superi or vena cava. LUNGS: No effusions or pneumothorax. Prominent markings in the lower lobes. OTHER: No free air under the diaphragm. IMPRESSION: No acute cardiopulmonary pathology. Reviewed, dictated and finalized at location A.
--- NOTE | ~2023-10-25 | CT_ITS ---
EXAMINATION: CT abdomen pelvis w con DATE: 10/25/2023 15:45 INDICATION: Left lower quadrant abdominal pain. TECHNIQUE: Computed tomography (CT) of the abdomen and pelvis was performed with 100 mL Omnipaque 350 intravenous contrast. Automated exposure control and iterative reconstruction technique were employe d. The dose-length product was 568.37 mGy-cm. COMPARISON: CT abdomen and pelvis 03/07/2022, abdomen MRI 03/21/2022 FINDINGS: The visualized portions of the lung bases demonstrate mild atelectasis. No pleural effusion . The heart size is normal. No pericardial effusion. There are cysts in the liver measuring up to 18 mm. The spleen, pancreas, and adrenal glands are normal. There are hemorrhagic cysts in the kidneys m easuring up to 3.3 cm on the right. There are scattered diverticula in the colon. There is fat strand ing around a diverticulum of the sigmoid colon, consistent with diverticulitis. The appendix is gaby l. There are no pathologically enlarged lymph nodes. There is no free intraperitoneal fluid. There ar e changes of bilateral inguinal hernia repairs. The prostate is mildly enlarged. There are brachyther apy seeds in the prostate and posterior bladder wall. There is severe lower lumbar spondylosis. There are chronic compression fractures of T11 and T12. IMPRESSION: 1. Acute sigmoid diverticulitis. No perforation or abscess. Reviewed, dictated and finalized at location A.
[2023-10-25] MEDS: SODIUM CHLORIDE 0.9% IV 1,000 ML 999 ML (15:09)
[2023-10-25 15:12] LABS: Glucose Point of Care 106 mg/dl (65-105)
[2023-10-25 15:22] LABS: Hematocrit 43.1 % (42.0-52.0); Hemoglobin 14.1 g/dL (14.0-18.0); Mean Corpuscular HGB Conc 32.7 g/dl (32-36); Mean Corpuscular Hemoglobin 32.3 pg (26-34); Mean Corpuscular Volume 98.6 fl (80-100); Mean Platelet Volume 8.8 fl (7.4-10.4); Platelet Count Result 184 k/mm3 (150-375); Red Blood Count 4.37 M/mm3 (4.6-6.20); Red Cell Distribution Width 13.7 % (11.5-14.5); White Blood Count 12.1 K/mm3 (4.5-10.0)
--- NOTE | 2023-10-25 15:22 | ED.ABDPAIN ---
HPI - Abdominal Pain General Chief Complaint: Abdominal Pain Stated Complaint: abd pain Time Seen by Provider: 10/25/23 14:57 History of Present Illness HPI narrative: Pt presents with LLQ abdominal pain for a couple of days. Pt has a history of diverticulitis in past. Pt says had some pain a couple of weeks ago which resolved. Pt seen by Dr Anthony today and sent to ER because his BP was low. Pt denies fever or vomiting or bloody stools. Related Data Home Medications Medication Instructions Recorded Confirmed ascorbate calcium (vitamin C) 500 500 mg PO DAILY 04/07/19 07/16/23 mg tablet omega-3 fatty acids 1,000 mg 2,000 mg PO BID 04/07/19 07/16/23 capsule (Fish Oil Concentrate) cyanocobalamin (vitamin B-12) 1,000 mcg PO DAILY 12/26/19 07/16/23 1,000 mcg tablet (Vitamin B-12) folic acid 1 mg tablet 1 mg PO BID 04/12/20 07/16/23 Calcium with Vitamin D 1 tablet BYMOUTH DAILY 02/21/23 07/16/23 vit no.95-ferrous 1 tablet PO DAILY 03/08/23 07/16/23 fumarate 28 mg-folic acid 800 mcg tablet ( Multivitamins) flecainide 100 mg tablet 100 mg PO Q12H 07/16/23 07/16/23 metoprolol tartrate 25 mg tablet 12.5 mg PO BID 07/16/23 07/16/23 pantoprazole 40 mg tablet,delayed 40 mg PO QAM 07/16/23 07/16/23 release Allergies Allergy/AdvReac Type Severity Reaction Status Date / Time No Known Allergies Allergy Mild Verified 10/25/23 15:17 Review of Systems Review of Systems: All systems reviewed & are unremarkable except as noted in HPI and below PMFSH Past Medical History Medical History BMI 29.0-29.9,adult BMI 30.0-30.9,adult BMI 31.0-31.9,adult BPH (benign prostatic hyperplasia) Cervicalgia Change in bowel habits Diabetes mellitus with microalbuminuria Diplopia DJD (degenerative joint disease), multiple sites Dupuytren's contracture of right hand Elevated homocysteine Elevated PSA Encounter for general adult medical examination w/o abnormal findings Encounter for Medicare annual wellness exam Encounter for preventive health examination Encounter for routine adult health examination with abnormal findings Encounter for special screening examination for neoplasm of prostate Encounter for therapeutic drug level monitoring Facial paresthesia Factor 5 Leiden mutation, heterozygous History of diverticulitis Light headed LLQ abdominal pain On care home drug therapy Pain in both hands Primary osteoarthritis involving multiple joints Renal cysts, acquired, bilateral Skin lesion Squamous cell carcinoma Trapezius muscle spasm Type 2 diabetes mellitus without complication Surgical History Surgical History S/P urological surgery Family History Family History Father Family history of diabetes mellitus in first degree relative Grandparent Diabetes mellitus Social History Social History Smoking status: Never smoker Second hand tobacco smoke exposure: No Alcohol intake: never Substance use: never Substance use type: does not use Lack of Transportation: No Lack of Food: Never True Current Housing: I Have Housing Concerned About Future Housing: No Difficulty Paying Gas/Electric Bills: No Difficulty Paying for Meds: No Currently Unemployed: No Education: Master's Degree or Higher Difficulty w/ Childcare or Family Care: No Living arrangements: with family Gender identity (if verbalized by the patient): Male Spiritual care concerns: No Exam Const: General: healthy appearing, no acute distress and alert Nutritional Appearance: well nourished Orientation/consciousness: patient oriented x3 Limitations: no limitations HENMT: Head: normal to inspection Mouth: Yes Normal oral and palatal mucosa present Eyes: Pupils: Equal, round and reactive pupi
[2023-10-25 15:30] LABS: Alanine Aminotransferase 24 U/L (6-50); Albumin Level 4.3 g/dL (3.5-5.1); Alkaline Phosphatase 51 U/L (38-126); Anion Gap 6 mmol/L (4-12); Aspartate Amino Transferase 36 U/L (17-59); Bilirubin,Total 0.8 mg/dL (0.2-1.3); Blood Urea Nitrogen 24 mg/dL (9-20); Calcium 9.3 mg/dL (8.4-10.2); Carbon Dioxide 28 mmol/L (22-30); Chloride 105 mmol/L (98-107); Estimated CRCL calculation 33 ml/min; Estimated Glomerular Filt Rate 36; Glucose 131 mg/dL (65-110); Lipase 94 U/L (23-300); Potassium 3.8 mmol/L (3.4-5.0); Sodium 139 mmol/L (137-145)
[2023-10-25 15:51] LABS: INR 2.4; Partial Thromboplastin Time 41.8 Seconds (22.3-36.8)
[2023-10-25 15:59] LABS: Band Neutrophils Percent 9 % (0-6); Lymphocytes Absolute Manual 0.24 K/mm3 (1.1-4.5); Monocytes Percent Manual 5 % (3-9); Neutrophils Absolute Manual 11.25 K/mm3 (1.3-6.7); Neutrophils Percent Manual 84 % (46-73); Ovalocytes 1+; Platelet Estimate Adequate (Adequate); Schistocytes None Seen; Total Cells Counted 100
[2023-10-25] MEDS: SODIUM CHLORIDE 0.9% IV 1,000 ML 999 ML IV CONT ×2 (16:04→16:07)
[2023-10-25] MEDS: PIPERACILLN/TAZ 3.375GM/NS50ML 3.375 GM/50 ML BAG IVPB (16:05)
[2023-10-25 16:19] LABS: Lactic Acid Reflex 1.6 mmol/L (0.7-2.0)
[2023-10-25 16:53] LABS: Appearance Urine Clear (Clear); Bacteria Urine None Seen /hpf; Bilirubin Urine Negative (Negative); Blood Urine Negative (Negative); Color Urine Dark Yellow (Yellow); Glucose Urine UA Negative (Negative); Hyaline Casts Urine Present /lpf; Ketones Urine 1+ mg/dL (Negative); Leukocyte Esterase Ur Negative LEU/UL (Negative); Need Manual Microscopic Reviewed; Nitrate Urine Negative (Negative); Protein Urine 2+ mg/dL (Negative); RBC Urine 0-2 /hpf (0-2); Squamous Epithelial Cell Urine Occasional /hpf (Few); WBC Urine 0-5 /hpf (0-3); pH Urine 5.5 (5.0-9.0)
[2023-10-25 16:54] LABS: Add Urine Microscopic? YES; Specific Grav Ur 1.039 (1.001-1.035)
[2023-10-25] MEDS: NOREPINEPHRINE 8 MG/D5W 250 ML 8 MG/250 ML BAG 9.38 MG IV CONT (18:09)
--- NOTE | 2023-10-25 19:27 | PC.NURSE ---
Consent for central line obtained.
--- NOTE | 2023-10-25 20:37 | ED.PROCEDURE ---
Procedures Central Line Placement Right IJ: Central Line Date: 10/25/23 Central Line Time: 08:00 Discussed w/ the patient/family/POA,the placement of a central venous catheter, including its clinical necessity/indication & associated potential risks, benifits and alternatives.: Yes The patient/family/POA understand(s) and acknowledge(s) the need to proceed with central venous catheter insertion as an important element of the patient's clinical management.: Yes Performed Emergently - Given emergent patient condition, temporal constraints may have precluded informed consent.: Yes Consent: I have discussed with the patient and/or surrogate, the non-emergent placement of a central venous catheter, including its clinical necessity/indication and associated potential risks and complications. The patient and/or surrogate understand(s) and acknowledge(s) the need to proceed with central venous catheter insertion as an important element of the patient's clinical management. Time Out Performed: Yes Patient Position: supine Patient placed on monitor/pulse ox: Yes Provider Prep: mask, sterile gown and sterile gloves Central line prep: 2% Chlorhexidine scrub Local anesthesia used: lidocaine 1% Amount of anesthesia used (ml): 3 Sterile US Technique with sterile gel/sterile probe covers: Yes Central line lumen inserted: single Post Procedure: sutured in place, good blood return, all ports aspirated, flushed, capped and transparent dressing Post procedure x-ray: tip of catheter in good position Patient tolerated procedure: well Complications: none
--- NOTE | 2023-10-25 21:13 | PC.NURSE ---
Notified EDP Dr. Leavitt that patient's chest xray is back. Per Dr. Leavitt central line is okay to use.
--- NOTE | 2023-10-25 21:39 | PM.IMHP ---
H&P: HPI History of Present Illness Date/Time: 10/25/23 21:39 Chief Complaint: Abdominal Pain Narrative: 68 y/o M presents here with abdominal pain with PMH of DM, HLD, SVT, Factor 5 Leiden mutation (heterozygous), diverticulitis/diverticulosis, osteoarthritis, and squamous cell carcinoma (s/p excision, upper lip). The patient presents here from his PCP office via personal vehicle for further evaluation of abdominal pain. He reports left lower quadrant abdominal pain that has been ongoing since yesterday afternoon. He describes the pain as cramping, nonradiating, intermittent, aggravated by jarring motions, and no alleviating factors. Did have a similar pain approximately 2 weeks ago and the pain lasted for a week with associated reduction in appetite and resolved without intervention and patient was not evaluated at that time. Sought treatment today when he developed chills and intermittent dizziness that was occurring at rest and with position changes. While driving from his PCP office to the ED he had white flashes in his central vision that were brief and have not reoccurred. Reports history of diverticulitis has had several episodes with most recent in the fall of 2022. Initially went to his PCP for evaluation, however was directed to the emergency department at [place] due to hypotension in the office (90/40). Last bowel movement was on Sunday (10/22), which was diarrhea. Reports that he has been having issues with intermittent diarrhea for the past year and attributed it to once of his home medications (metoprolol or flecainide, suspects the metoprolol because the diarrhea worsened when his dose was increased recently). Denies dark/tarry stools or BRB per rectum. Currently denying dysuria, hematuria, or urinary frequency. Denies fever, body aches, chest pain, or shortness a breath. Reports that his blood pressure has slightly dropped since the initiation of metoprolol from 120 systolic to 100-110 systolic. Does not monitor blood pressure at home. No history of chronic hypotension. Initial VS at presentation: 97.8? F, HR 80, RR 20, 78/58, and 97% on RA. ED workup showed: WBC 12.1, no anemia, INR 2.4, no significant electrolyte derangements, creatinine 1.9 and GFR 36) previously 1.2 and GFR >60 on 07/11/2023), and lactic acid 1.6. UA not suspicious for UTI. CXR showed no acute cardiopulmonary pathology. CT of the abdomen/pelvis showed acute sigmoid diverticulitis without perforation or abscess. Review of Systems Review of Systems: All systems reviewed & are unremarkable except as noted in HPI and below [facility] Past Medical History Medical History (Updated 10/25/23 @ 22:00 by Heather Chavez APRN) Atrial fibrillation BPH (benign prostatic hyperplasia) Cervicalgia DJD (degenerative joint disease), multiple sites DM2 (diabetes mellitus, type 2) Dupuytren's contracture of right hand Elevated homocysteine Facial paresthesia Factor 5 Leiden mutation, heterozygous History of diverticulitis Mixed hyperlipidemia Primary osteoarthritis involving multiple joints Renal cysts, acquired, bilateral Squamous cell carcinoma s/p excision, upper lip SVT (supraventricular tachycardia) initially presented in childhood Surgical History Surgical History (Updated 10/25/23 @ 21:49 by Heather Chavez APRN) History of hernia repair (2007) bilateral, inguinal hernias History of local excision of skin lesion S/P urological surgery implant in prostate Family History Family History Father Family history of diabetes mellitus in first degree relative Grandparent Diabetes mellitus Social History Social History Smoking status: Never smoker Second hand tobacco smoke exposure: No Alcohol intake: never Substance use: never Substance use type: does not use Do You Feel Safe in your Home?: Yes Lack of Transportation: No
[2023-10-25] MEDS: PIPERACILLIN/TAZ 2.25G/NS 50ML 2.25 GM/50 ML BAG IVPB (22:02)
--- NOTE | 2023-10-25 22:12 | ADMGEN ---
This patient, Truman Cleaning, was admitted to Intensive Care Unit-5 at 2130. Patient/family oriented to hospital policies and general routines including ID bracelet, bed and alarms, visiting hours, pain management, procedures, bathroom and other care routines, personal items, smoking policy, room service/diet, and visiting hours. Information on how to activate the Rapid Response Team has been discussed. Patient/Family are encouraged to report perceived risks to care and to ask questions if they do not understand what they are told or what they should do.
[2023-10-25] MEDS: LACTATED RINGERS 1,000 ML 100 ML IV CONT (23:17)
[2023-10-25] MEDS: WARFARIN (*PBKC) 3 MG TABLET 6 MG PO (23:17)
[2023-10-26] VITALS (22 sets, daily range): BP systolic 87–107; BP diastolic 59–69; PULSE 69–89; RESP 15–22; TEMP 36.6–38.4; O2SAT 91–99
[2023-10-26 00:34] LABS: MRSA (PCR) NOT DETECTED (NOT DETECTE)
[2023-10-26] MEDS: ACETAMINOPHEN 325 MG TABLET 650 MG PO ×3 (04:56→22:23)
[2023-10-26] MEDS: PIPERACILLIN/TAZ 2.25G/NS 50ML 2.25 GM/50 ML BAG IVPB (04:56)
[2023-10-26] MEDS: CENTRAL LINE FLUSH 10 ML IV PUSH ×2 (04:57→14:30)
[2023-10-26 06:48] LABS: Hematocrit 37.2 % (42.0-52.0); Hemoglobin 12.1 g/dL (14.0-18.0); Mean Corpuscular HGB Conc 32.5 g/dl (32-36); Mean Corpuscular Hemoglobin 32.4 pg (26-34); Mean Corpuscular Volume 99.5 fl (80-100); Mean Platelet Volume 9.1 fl (7.4-10.4); Platelet Count Result 141 k/mm3 (150-375); Red Blood Count 3.74 M/mm3 (4.6-6.20); Red Cell Distribution Width 13.9 % (11.5-14.5); White Blood Count 8.5 K/mm3 (4.5-10.0)
[2023-10-26 06:57] LABS: Alanine Aminotransferase 24 U/L (6-50); Albumin Level 3.1 g/dL (3.5-5.1); Alkaline Phosphatase 40 U/L (38-126); Anion Gap 3 mmol/L (4-12); Aspartate Amino Transferase 29 U/L (17-59); Bilirubin,Total 0.6 mg/dL (0.2-1.3); Blood Urea Nitrogen 19 mg/dL (9-20); Calcium 7.9 mg/dL (8.4-10.2); Carbon Dioxide 23 mmol/L (22-30); Chloride 109 mmol/L (98-107); Estimated CRCL calculation 51 ml/min; Estimated Glomerular Filt Rate > 60; Glucose 99 mg/dL (65-110); Potassium 3.3 mmol/L (3.4-5.0); Sodium 135 mmol/L (137-145)
[2023-10-26 07:09] LABS: INR 3.4; Prothrombin Time 35.3 Seconds (11.1-14.7)
[2023-10-26 07:10] LABS: Partial Thromboplastin Time 64.6 Seconds (22.3-36.8)
[2023-10-26 07:36] LABS: Band Neutrophils Percent 12 % (0-6); Lymphocytes Absolute Manual 0.42 K/mm3 (1.1-4.5); Monocytes Absolute Manual 0.25 K/mm3 (0.1-0.90); Monocytes Percent Manual 3 % (3-9); Neutrophils Absolute Manual 7.82 K/mm3 (1.3-6.7); Neutrophils Percent Manual 80 % (46-73); Total Cells Counted 100
[2023-10-26 07:37] LABS: Platelet Estimate Adequate (Adequate); Schistocytes None Seen
--- NOTE | 2023-10-26 08:32 | PM.IMPN ---
Progress Note: A&P Assessment and Plan (1) Sepsis: Code(s): A41.9 - Sepsis, unspecified organism Status: Acute Assessment and Plan: Patient presents with LLQ abdominal pain and chills. He met sepsis criteria with elevated RR, WBC with hypotension. Lactic acid 1.6. PCT pending. CXR clear. UA not consistent with UTI. CT A/P showing acute sigmoid diverticulitis without perforation. BCx collected He was given appropriate fluid resuscitation. BP remained soft so central line placed and pressors started but quickly weaned off. Suspected source of sepsis is diverticulitis Started on Zosyn on 10/24 Admission to the ICU due to significant hypotension, software development project manager consulted. Continue Zosyn. Follow up on culture results. (2) Acute hypotension: Code(s): I95.9 - Hypotension, unspecified Status: Acute Assessment and Plan: Patient does not have a history of hypotension but has noticed his BP is soft at home with SBP 100-110 range. He did recently have metoprolol increased. No symptoms of lightheadedness with standing. BP range since arrival: 75/51-118/86 and was briefly on norepinephrine but currently on hold SBP in the 90-100 but MAP mostly in the 70's HoTN related to above. Followup on BCx. Monitor BP (3) Diverticulitis: Code(s): K57.92 - Diverticulitis of intestine, part unspecified, without perforation or abscess without bleeding Status: Acute Assessment and Plan: CT abd/pelvis showing acute sigmoid diverticulitis. No perforation or abscess. He has a hx of diverticulitis/diverticulosis Started on Zosyn on 10/24 Denies recent antibiotic use, will hold on stool cultures WBC normal now. Follow for resolution. Consider GenSurg consult as outpatient for possible elective sigmoidectomy. (4) Factor 5 Leiden mutation, heterozygous: Code(s): D68.51 - Activated protein C resistance Status: Chronic Assessment and Plan: Patient with hx of FVL on Coumadin. INR 2.4 on admisison. Coumadin 7 mg alternating with 6mg every other day. He was recently supratherapeutic (4.4 on 10/20) Patient heterozygous so normally does not require anticoagulation but he has had 2-3 LLE DVTs. He also has hx of AFib He states his physicians want his INR 2.5-3.5. (5) Type 2 diabetes mellitus without complication: Qualifiers: Diabetes mellitus alf insulin use: without alf use Qualified Code(s): E11.9 - Type 2 diabetes mellitus without complications Code(s): E11.9 - Type 2 diabetes mellitus without complications Status: Chronic Assessment and Plan: A1c 6.7 on 07/11/23. The patient's blood glucose was reviewed on 10/25 Glucose remains well controlled. Continue AccuCheks covering with sliding scale. Hypoglycemia protocol available as needed. Continue to monitor (6) Atrial fibrillation: Qualifiers: Atrial fibrillation type: unspecified Qualified Code(s): I48.91 - Unspecified atrial fibrillation Code(s): I48.91 - Unspecified atrial fibrillation Status: Acute Assessment and Plan: Patient with a hx of SVT and AFib. Continue flecanide. Metoprolol resumed but will add parameters Continue Coumadin. Daily INR Plan Diet: Clear liquids; advance to full liquids GI Prophylaxis: Pantoprazole IVP DVT Prophylaxis: Warfarin Lines: Peripheral, central line to the left IJ Code Status: Full code Subjective Date/time seen: 10/26/23 08:32 Interval history: 68yo male with DM, HLD, SVT, diverticulitis/diverticulosis and Factor Leiden here for abdominal pain. Patient feels 'a lot better'. He has a hx of diverticulitis about 3x/year and only occasionally requires abx. Symptoms normally resolve on their own. Tolerating oral intake without nausea or vomiting. No CP, palpitations, cough or SOB. No dyuris or heamturia. Has not required pressors since admission. Exam Narrative: AF 98.7 98/64 82 20 94% ra Gen -
[2023-10-26] MEDS: METOPROLOL TARTRATE 25 MG TABLET PO (08:54)
[2023-10-26] MEDS: FLECAINIDE ACETATE 100 MG TABLET PO ×2 (08:54→22:24)
[2023-10-26] MEDS: PANTOPRAZOLE SODIUM IV 40 MG VIAL IV PUSH (08:54)
[2023-10-26] MEDS: POTASSIUM CHLORIDE 20 MEQ ER TABLET 40 MEQ PO (08:54)
--- NOTE | 2023-10-26 09:17 | WPDCNINT ---
Assessment and Plan Assessment and plan (1) Atrial fibrillation: Qualifiers: Atrial fibrillation type: unspecified Qualified Code(s): I48.91 - Unspecified atrial fibrillation Code(s): I48.91 - Unspecified atrial fibrillation Status: Acute Assessment and Plan: currently in sinus rhythm. continue flecainide and warfarin (2) Septic shock: Code(s): A41.9 - Sepsis, unspecified organism; R65.21 - Severe sepsis with septic shock Status: Acute Assessment and Plan: secondary to Acute sigmoid diverticulitis. no evidence of perforation or abscess on CT scan blood culture sent pending patient received IV fluid bolus and now on IV fluid infusion Levophed weaned off continue Zosyn liquid diet (3) Factor 5 Leiden mutation, heterozygous: Code(s): D68.51 - Activated protein C resistance Status: Chronic Assessment and Plan: continue warfarin. Monitoring INR (4) Diverticulitis: Code(s): K57.92 - Diverticulitis of intestine, part unspecified, without perforation or abscess without bleeding Status: Acute Assessment and Plan: see above Plan DVT prophylaxis - warfarin Stress ulcer prophylaxis - Nutrition - liquid diet Code Status - Full Code Transfer out ICU today Rn Travel Consult Note Consult date: 10/26/23 Reason for consult: sepsis HPI: Truman Cleaning is a 68 year old male with PMH of DM, HLD, SVT, Factor 5 Leiden mutation (heterozygous), diverticulitis/diverticulosis, osteoarthritis, and squamous cell carcinoma (s/p excision, upper lip). presented yesterday to ER with chief complaint of abdominal pain. Patient was sent from his PCP office for evaluation of abdominal pain. He reported left lower quadrant abdominal pain that has been ongoing since yesterday afternoon. He describes the pain as cramping, nonradiating, intermittent, aggravated by jarring motions, and no alleviating factors. he had similar pain approximately 2 weeks ago and the pain lasted for a week with associated reduction in appetite and resolved without intervention and patient was not evaluated at that time. Last bowel movement was on Sunday (10/22), which was diarrhea. Reports that he has been having issues with intermittent diarrhea for the past year and attributed it to once of his home medications (metoprolol or flecainide, suspects the metoprolol because the diarrhea worsened when his dose was increased recently). Denies dark/tarry stools or BRB per rectum. Currently denying dysuria, hematuria, or urinary frequency. Denied fever, body aches, chest pain, or shortness a breath. All other systems were reviewed and were negative Initial VS at presentation: 97.8? F, HR 80, RR 20, 78/58, and 97% on RA. workup in the ER showed WBC 12.1, no anemia, INR 2.4, no significant electrolyte derangements, creatinine 1.9 and GFR 36) previously 1.2 and GFR >60 on 07/11/2023), and lactic acid 1.6. UA was not suspicious for UTI. CXR showed no acute cardiopulmonary pathology. CT of the abdomen/pelvis showed acute sigmoid diverticulitis without perforation or abscess patient was given IV fluid bolus followed by IV fluid infusion. a central venous catheter was placed and patient was started on Levophed. by yesterday evening Levophed was weaned off as blood pressure improved Review of Systems Review of Systems: All systems reviewed & are unremarkable except as noted in HPI and below ( HPI) [facility] Past Medical History Medical History Atrial fibrillation BPH (benign prostatic hyperplasia) Cervicalgia DJD (degenerative joint disease), multiple sites DM2 (diabetes mellitus, type 2) Dupuytren's contracture of right hand Elevated homocysteine Facial paresthesia Factor 5 Leiden mutation, heterozygous History of diverticulitis Mixed hyperlipidemia Primary osteoarthritis involving multiple joints Renal cysts, acquired, bilate
[2023-10-26] MEDS: PIPERACILLN/TAZ 3.375GM/NS50ML 3.375 GM/50 ML BAG IVPB ×3 (09:23→22:22)
[2023-10-26 11:54] LABS: Procalcitonin 14.6 ng/mL
[2023-10-26] MEDS: WARFARIN (*PBKC) 2 MG TABLET PO (17:51)
[2023-10-26] MEDS: WARFARIN (*PBKC) 5 MG TABLET PO (17:52)
[2023-10-26] MEDS: ROSUVASTATIN 5 MG TABLET PO (22:22)
[2023-10-27] VITALS (17 sets, daily range): BP systolic 91–121; BP diastolic 59–78; PULSE 64–78; RESP 13–18; TEMP 36.4–36.8; O2SAT 93–100
[2023-10-27] MEDS: CENTRAL LINE FLUSH 10 ML IV PUSH ×3 (00:20→17:35)
[2023-10-27] MEDS: PIPERACILLN/TAZ 3.375GM/NS50ML 3.375 GM/50 ML BAG IVPB ×4 (05:00→21:50)
[2023-10-27 05:35] LABS: Hemoglobin 12.9 g/dL (14.0-18.0); Mean Corpuscular HGB Conc 33.1 g/dl (32-36); Mean Corpuscular Hemoglobin 32.2 pg (26-34); Mean Corpuscular Volume 97.3 fl (80-100); Mean Platelet Volume 9.1 fl (7.4-10.4); Platelet Count Result 128 k/mm3 (150-375); Red Blood Count 4.01 M/mm3 (4.6-6.20); Red Cell Distribution Width 14.1 % (11.5-14.5); White Blood Count 4.1 K/mm3 (4.5-10.0)
[2023-10-27 05:43] LABS: INR 4.1; Prothrombin Time 40.5 Seconds (11.1-14.7)
[2023-10-27 06:01] LABS: Alanine Aminotransferase 48 U/L (6-50); Albumin Level 3.1 g/dL (3.5-5.1); Alkaline Phosphatase 60 U/L (38-126); Anion Gap 2 mmol/L (4-12); Aspartate Amino Transferase 59 U/L (17-59); Bilirubin,Total 0.7 mg/dL (0.2-1.3); Blood Urea Nitrogen 12 mg/dL (9-20); Calcium 8.5 mg/dL (8.4-10.2); Carbon Dioxide 27 mmol/L (22-30); Chloride 109 mmol/L (98-107); Estimated CRCL calculation 55 ml/min; Estimated Glomerular Filt Rate > 60; Glucose 93 mg/dL (65-110); Magnesium 1.8 mg/dL (1.6-2.3); Potassium 3.6 mmol/L (3.4-5.0); Sodium 138 mmol/L (137-145)
[2023-10-27] MEDS: FLECAINIDE ACETATE 100 MG TABLET PO ×2 (08:26→21:50)
[2023-10-27] MEDS: METOPROLOL TARTRATE 25 MG TABLET PO (08:26)
[2023-10-27] MEDS: PANTOPRAZOLE SODIUM IV 40 MG VIAL IV PUSH (08:26)
--- NOTE | 2023-10-27 14:15 | PC.NURSE ---
Patient returned to IMU bed. Transfer to [facility] pending.
--- NOTE | 2023-10-27 14:43 | PC.NURSE ---
This patient, Truman Cleaning, was transferred to [facility] via bed without issue on 10/27/23 at 1435. Personal belongings sent with patient. Report given to Corwin Mckeon. Appropriate documentation sent with patient.Family updated on transfer.
--- NOTE | 2023-10-27 15:04 | PM.IMPN ---
Progress Note: A&P Assessment and Plan (1) Sepsis: Code(s): A41.9 - Sepsis, unspecified organism Status: Acute Assessment and Plan: Patient presents with LLQ abdominal pain and chills. He met sepsis criteria with elevated RR and WBC with hypotension. Lactic acid 1.6. PCT 14.6 CXR clear. UA not consistent with UTI. CT A/P showing acute sigmoid diverticulitis without perforation. BCx NGTD He was given appropriate fluid resuscitation. BP remained soft so central line placed and pressors started but quickly weaned off. Suspected source of sepsis is diverticulitis Started on Zosyn on 10/24 Admission to the ICU due to significant hypotension, federal java developer consulted. Now downgraded WBC remains normal. Still having fevers. Continue Zosyn. Follow up on culture results. (2) Acute hypotension: Code(s): I95.9 - Hypotension, unspecified Status: Acute Assessment and Plan: Patient does not have a history of hypotension but has noticed his BP is soft at home with SBP 100-110 range. He did recently have metoprolol increased. No symptoms of lightheadedness with standing. BP range since arrival: 75/51-118/86 and was briefly on norepinephrine BP soft at times. Lopressor was continued with parameters Stop Lopressor. Okay to remove central line (3) Diverticulitis: Code(s): K57.92 - Diverticulitis of intestine, part unspecified, without perforation or abscess without bleeding Status: Acute Assessment and Plan: CT abd/pelvis showing acute sigmoid diverticulitis. No perforation or abscess. He has a hx of diverticulitis/diverticulosis Started on Zosyn on 10/24 Denies recent antibiotic use, will hold on stool cultures WBC normal now but still with fevers. Follow for resolution. Advance diet to low residual. Consider GenSurg consult as outpatient for possible elective sigmoidectomy. (4) Factor 5 Leiden mutation, heterozygous: Code(s): D68.51 - Activated protein C resistance Status: Chronic Assessment and Plan: Patient with hx of FVL and AFib on Coumadin. INR 2.4 on admission. Coumadin 7 mg alternating with 6mg every other day. He was recently supratherapeutic (4.4 on 10/20) Patient heterozygous so normally does not require anticoagulation but he has had 2-3 LLE DVTs. He states his physicians want his INR 2.5-3.5. INR 4.1 today so will hold Coumadin today (5) Type 2 diabetes mellitus without complication: Qualifiers: Diabetes mellitus penitentiary insulin use: without collect on delivery clerk use Qualified Code(s): E11.9 - Type 2 diabetes mellitus without complications Code(s): E11.9 - Type 2 diabetes mellitus without complications Status: Chronic Assessment and Plan: A1c 6.7 on 07/11/23. The patient's blood glucose was reviewed on 10/26 Glucose remains well controlled. Continue AccuCheks covering with sliding scale. Hypoglycemia protocol available as needed. Continue to monitor (6) Atrial fibrillation: Qualifiers: Atrial fibrillation type: unspecified Qualified Code(s): I48.91 - Unspecified atrial fibrillation Code(s): I48.91 - Unspecified atrial fibrillation Status: Acute Assessment and Plan: Patient with a hx of SVT and AFib. Continue flecanide. Metoprolol resumed with parameters but will hold for now INR 4.1. Hold Coumadin. Daily INR Plan GI Prophylaxis: Pantoprazole DVT Prophylaxis: Warfarin Code Status: Full code Subjective Date/time seen: 10/27/23 15:04 Interval history: 68yo male with DM, HLD, SVT, diverticulitis/diverticulosis and Factor Leiden here for abdominal pain. Having BMs and passing flatus. No blood or mucous in the stools. Tolerating diet. Walking to the bathroom. Up to the chair today. Minimal abd pain. Exam Narrative: Tm 101.1 98.1 / 70 18 100% ra Gen - NARD Neck - right IJ TLC secured Chest - distant, clear BS CV - RRR S1/S2. Tele showing no dysrhythmias
[2023-10-27 17:07] LABS: Glucose Point of Care 98 mg/dl (65-105)
[2023-10-27 20:16] LABS: Glucose Point of Care 161 mg/dl (65-105)
[2023-10-28] VITALS (12 sets, daily range): BP systolic 95–115; BP diastolic 52–73; PULSE 69–76; RESP 15–17; TEMP 36.3–36.7; O2SAT 94–100
[2023-10-28] MEDS: PIPERACILLN/TAZ 3.375GM/NS50ML 3.375 GM/50 ML BAG IVPB ×2 (04:41→09:24)
[2023-10-28 05:08] LABS: Hematocrit 39.1 % (42.0-52.0); Hemoglobin 12.8 g/dL (14.0-18.0); Mean Corpuscular HGB Conc 32.7 g/dl (32-36); Mean Corpuscular Hemoglobin 31.6 pg (26-34); Mean Corpuscular Volume 96.5 fl (80-100); Mean Platelet Volume 9.5 fl (7.4-10.4); Platelet Count Result 124 k/mm3 (150-375); Red Blood Count 4.05 M/mm3 (4.6-6.20); Red Cell Distribution Width 13.6 % (11.5-14.5); White Blood Count 3.8 K/mm3 (4.5-10.0)
[2023-10-28 05:14] LABS: INR 3.4; Prothrombin Time 34.9 Seconds (11.1-14.7)
[2023-10-28 05:19] LABS: Alanine Aminotransferase 68 U/L (6-50); Albumin Level 3.3 g/dL (3.5-5.1); Alkaline Phosphatase 118 U/L (38-126); Anion Gap 4 mmol/L (4-12); Aspartate Amino Transferase 77 U/L (17-59); Bilirubin,Total 0.6 mg/dL (0.2-1.3); Blood Urea Nitrogen 9 mg/dL (9-20); Calcium 8.8 mg/dL (8.4-10.2); Carbon Dioxide 27 mmol/L (22-30); Chloride 107 mmol/L (98-107); Estimated CRCL calculation 55 ml/min; Estimated Glomerular Filt Rate > 60; Glucose 105 mg/dL (65-110); Magnesium 1.8 mg/dL (1.6-2.3); Potassium 3.6 mmol/L (3.4-5.0); Sodium 138 mmol/L (137-145)
[2023-10-28 08:06] LABS: Glucose Point of Care 135 mg/dl (65-105)
[2023-10-28] MEDS: FLECAINIDE ACETATE 100 MG TABLET PO (09:24)
[2023-10-28] MEDS: PANTOPRAZOLE SODIUM IV 40 MG VIAL IV PUSH (09:24)
--- NOTE | 2023-10-28 14:54 | PM.DS ---
DS: Admitting Diagnosis Discharge Date 10/28/23 Admitting Diagnosis Abdominal pain DS: Discharge Diagnosis Discharge Diagnosis (1) Sepsis: Code(s): A41.9 - Sepsis, unspecified organism Status: Acute (2) Acute hypotension: Code(s): I95.9 - Hypotension, unspecified Status: Acute (3) Diverticulitis: Code(s): K57.92 - Diverticulitis of intestine, part unspecified, without perforation or abscess without bleeding Status: Acute (4) Factor 5 Leiden mutation, heterozygous: Code(s): D68.51 - Activated protein C resistance Status: Chronic (5) Type 2 diabetes mellitus without complication: Qualifiers: Diabetes mellitus local intermodal truck driver insulin use: without correction use Qualified Code(s): E11.9 - Type 2 diabetes mellitus without complications Code(s): E11.9 - Type 2 diabetes mellitus without complications Status: Chronic (6) Atrial fibrillation: Qualifiers: Atrial fibrillation type: unspecified Qualified Code(s): I48.91 - Unspecified atrial fibrillation Code(s): I48.91 - Unspecified atrial fibrillation Status: Acute DS: Summary Hospital Course Reason for hospitalization: 68yo male with DM, HLD, SVT, diverticulitis/diverticulosis and Factor Leiden here for abdominal pain. Please see H&P for details. Hospital Course: Patient presents with LLQ abdominal pain and chills. He met sepsis criteria with elevated RR and WBC with hypotension. Lactic acid 1.6. PCT 14.6. CXR clear. UA not consistent with UTI. CT A/P showing acute sigmoid diverticulitis without perforation. BCx NGTD. He was given appropriate fluid resuscitation. BP remained soft so central line placed and pressors started but quickly weaned off. Suspected source of sepsis is diverticulitis. He was started on Zosyn on 10/25/23. Patient does not have a history of hypotension but has noticed his BP is soft at home with SBP 100-110 range. He did recently have metoprolol increased. No symptoms of lightheadedness with standing prior to admission. Lopressor stopped. He was admitted to the ICU due to significant hypotension, policy cancellation clerk consulted. WBC normal and fevers resolved. Diet was started and advanced to low residual. Patient with hx of FVL and AFib on Coumadin. INR 2.4 on admission. We continued his Coumadin. He had daily INR checks and we adjusted his Coumadin as needed. Patient with a hx of SVT and AFib. We continued his flecainide. Metoprolol was held. No problems overnight. No abdominal pain. Having normal BMs. Last colonoscopy was 3 years ago. Recommend he set up an appointment with his GI doctor. Patient overall did well and was able to be discharged home on 10/28/23. Status at Discharge Cognitive/behavioral status at discharge: stable Time Spent with Patient Time attestation: Total time spent providing and/or coordinating discharge services: 35 minutes Time spent: Greater than 30 minutes Exam Narrative: AF 97.9 111/73 71 17 100% ra Gen - NARD sitting up in chair Chest - distant, clear BS CV - RRR S1/S2. Tele showing no dysrhythmias Abd - soft, ND/NT, +BS. Ext - No pedal edema Psych - Nml mood and affect Skin - Warm and dry. DS: Data Data Completed and Pending Labs on day of discharge: Labs from last 24 hours 10/28/23 10/28/23 10/27/23 08:03 04:54 19:52 WBC 3.8 L RBC 4.05 L Hgb 12.8 L Hct 39.1 L MCV 96.5 MCH 31.6 MCHC 32.7 RDW 13.6 Plt Count 124 L MPV 9.5 PT 34.9 H INR 3.4 Sodium 138 Potassium 3.6 Chloride 107 Carbon Dioxide 27 Anion Gap 4 BUN 9 Creatinine 1.10 Estim Creat Clear Calc 55 Estimated GFR > 60 Glucose 105 POC Capillary Glucose 135 H 161 H Calcium 8.8 Magnesium 1.8 Total Bilirubin 0.6 AST 77 H ALT 68 H Alkaline Phosphatase 118 Total Protein 6.0 L Albumin 3.3 L 10/27/23 17:04 WBC RBC Hgb Hct MCV MCH MCHC
== END 2023-10-28 16:27 | disposition home or self-care (01) | DRG 872 ==
LOC: ANHED 17:33 → ANHICU 19:14 → ANHIMU 10-27 14:28
PROVIDERS: Emergency Medicine; Internal Medicine; Student in an Organized Health Care Education/Training Program; Admitting Provider Internal Medicine; Emergency Provider Emergency Medicine; PCP Internal Medicine; Visit Provider Internal Medicine
DX: A41.9 Sepsis, unspecified organism (principal); K57.92 Diverticulitis of intestine, part unspecified, without perforation or abscess without bleeding; D68.51 Activated protein C resistance; I95.9 Hypotension, unspecified; E11.9 Type 2 diabetes mellitus without complications; I48.91 Unspecified atrial fibrillation; N40.0 Benign prostatic hyperplasia without lower urinary tract symptoms; M15.9 Polyosteoarthritis, unspecified; E78.5 Hyperlipidemia, unspecified; Z85.828 Personal history of other malignant neoplasm of skin
CPT/HCPCS: 36415; 74177; 80053; 81001; 82948; 83605; 83690; 83735; 84145; 85025; 85027; 85610; 85730; 87040; 87641; 96361; 96365; 99285; A9270; C1751; C9113; J2543; J7030; J7120; Q9967

== ENCOUNTER 2023-11-07 10:08 | Outpatient (CLI) | payer MEDICARE, SELFPAY ==
[2023-11-07 12:45] LABS: Basophils Absolute Auto 0.1 K/mm3 (0.0-0.1); Basophils Percent Auto 1.3 % (0.2-1.2); Eosinophils Absolute Auto 0.3 K/mm3 (0-0.3); Eosinophils Percent Auto 4.3 % (0-4.4); Hematocrit 42.2 % (42.0-52.0); Hemoglobin 13.9 g/dL (14.0-18.0); Immature Granulocyte Absolute 0.03 K/mm3 (0.00-0.031); Immature Granulocyte Percent A 0.4 % (0-0.5); Lymphocytes Absolute Auto 1.79 K/mm3 (0.9-3.2); Lymphocytes Percent Auto 25.5 % (18.3-44.2); Mean Corpuscular HGB Conc 32.9 g/dl (32-36); Mean Corpuscular Hemoglobin 32.1 pg (26-34); Mean Corpuscular Volume 97.5 fl (80-100); Mean Platelet Volume 9.3 fl (7.4-10.4); Monocytes Absolute Auto 0.7 K/mm3 (0.1-0.6); Monocytes Percent Auto 9.8 % (2.6-8.5); Neutrophils Absolute Auto 4.1 K/mm3 (1.3-6.7); Neutrophils Percent Auto 58.7 % (45.5-73.1); Platelet Count Result 310 k/mm3 (150-375); Red Blood Count 4.33 M/mm3 (4.6-6.20); Red Cell Distribution Width 13.8 % (11.5-14.5)
[2023-11-07 13:13] LABS: Cholesterol 125 mg/dL (0-200); HDL Direct 48 mg/dL; Triglycerides 78 mg/dL (<150)
[2023-11-07 13:17] LABS: Alanine Aminotransferase 49 U/L (6-50); Albumin Level 4.6 g/dL (3.5-5.1); Alkaline Phosphatase 64 U/L (38-126); Anion Gap 6 mmol/L (4-12); Aspartate Amino Transferase 75 U/L (17-59); Bilirubin,Total 0.8 mg/dL (0.2-1.3); Blood Urea Nitrogen 20 mg/dL (9-20); Calcium 9.8 mg/dL (8.4-10.2); Carbon Dioxide 32 mmol/L (22-30); Chloride 100 mmol/L (98-107); Estimated Glomerular Filt Rate > 60; Glucose 101 mg/dL (65-110); Potassium 4.3 mmol/L (3.4-5.0); Sodium 138 mmol/L (137-145)
[2023-11-07 13:24] LABS: LDL Cholesterol Direct 58 mg/dL
[2023-11-07 13:47] LABS: Prostate Specific Antigen 6.1 ng/mL (< OR = 4.0)
[2023-11-07 14:19] LABS: Free T4 Free Thyroxine 1.43 ng/mL (0.78-2.19); Vitamin D 25 Hydroxy 59.3 ng/mL
== END 2023-11-07 10:09 | disposition home or self-care (01) ==
PROVIDERS: Internal Medicine; PCP Internal Medicine; Visit Provider Internal Medicine
DX: N40.0 Benign prostatic hyperplasia without lower urinary tract symptoms (principal); R97.20 Elevated prostate specific antigen [PSA]; R74.8 Abnormal levels of other serum enzymes; D72.819 Decreased white blood cell count, unspecified; E11.9 Type 2 diabetes mellitus without complications; E55.9 Vitamin D deficiency, unspecified; E78.2 Mixed hyperlipidemia; Z79.899 Other long term (current) drug therapy
CPT/HCPCS: 36415; 80053; 80061; 82306; 83036; 84153; 84439; 84443; 85025; 85610

== ENCOUNTER 2023-11-07 10:14 | Outpatient (RCR) | payer MEDICARE, SELFPAY ==
[2023-10-29 15:13] LABS: Prothrombin Time 31.8 Seconds (11.1-14.7)
[2023-11-07 12:52] LABS: INR 1.6; Prothrombin Time 19.7 Seconds (11.1-14.7)
== END 2024-01-27 23:59 | disposition home or self-care (01) ==
LOC: ANHGOSHLAB 10:14
PROVIDERS: PCP Internal Medicine; Visit Provider Internal Medicine
DX: D68.9 Coagulation defect, unspecified (principal)
CPT/HCPCS: 36415; 85610

== ENCOUNTER 2024-01-09 10:02 | Outpatient (CLI) | payer MEDICARE, SELFPAY ==
[2024-01-09 13:37] LABS: Alanine Aminotransferase 37 U/L (6-50); Albumin Level 4.3 g/dL (3.5-5.1); Alkaline Phosphatase 42 U/L (38-126); Aspartate Amino Transferase 93 U/L (17-59); Bilirubin,Total 0.7 mg/dL (0.2-1.3)
== END 2024-01-09 10:03 | disposition home or self-care (01) ==
PROVIDERS: PCP Internal Medicine; Visit Provider Internal Medicine Cardiovascular Disease
DX: Z51.81 Encounter for therapeutic drug level monitoring (principal); Z79.899 Other long term (current) drug therapy
CPT/HCPCS: 36415; 80076

== ENCOUNTER 2024-01-11 13:54 | Outpatient (CLI) | payer MEDICARE, SELFPAY ==
[2024-01-11 19:05] LABS: Alanine Aminotransferase 37 U/L (6-50); Albumin Level 4.5 g/dL (3.5-5.1); Alkaline Phosphatase 52 U/L (38-126); Amylase 68 U/L (30-110); Aspartate Amino Transferase 96 U/L (17-59); Bilirubin,Total 0.6 mg/dL (0.2-1.3); Lipase 159 U/L (23-300)
[2024-01-14 15:18] LABS: GGT 13 U/L (3-70)
== END 2024-01-11 13:55 | disposition home or self-care (01) ==
LOC: ANHGOSHLAB 13:57
PROVIDERS: PCP Internal Medicine; Visit Provider Internal Medicine
DX: R74.8 Abnormal levels of other serum enzymes (principal); Z79.899 Other long term (current) drug therapy
CPT/HCPCS: 36415; 80076; 82150; 82977; 83690

== ENCOUNTER 2024-01-15 14:20 | Outpatient (CLI) | payer MEDICARE, SELFPAY ==
[2024-01-18 11:48] LABS: Trichrome Ova and Parasites STATUS: FINAL
[2024-01-24 14:28] LABS: Fecal Fat, Ql Normal (Normal)
== END 2024-01-15 14:21 | disposition home or self-care (01) ==
LOC: ANHLAB 14:22
PROVIDERS: PCP Internal Medicine; Visit Provider Internal Medicine
DX: R19.7 Diarrhea, unspecified (principal); R19.8 Other specified symptoms and signs involving the digestive system and abdomen
CPT/HCPCS: 82705; 87045; 87177; 87209; 87427; 87449; 87493; 89055

== ENCOUNTER 2024-03-21 10:29 | Outpatient (CLI) | payer MEDICARE, SELFPAY ==
[2024-03-21 14:28] LABS: Add Urine Microscopic? NO; Appearance Urine Clear (Clear); Bilirubin Urine Negative (Negative); Blood Urine Negative (Negative); Color Urine Yellow (Yellow); Glucose Urine UA 3+ mg/dL (Negative); Ketones Urine Negative (Negative); Leukocyte Esterase Ur Negative LEU/UL (Negative); Nitrate Urine Negative (Negative); Protein Urine Negative (Negative); Specific Grav Ur 1.012 (1.001-1.035); Urobilinogen Urine 0.2 mg/dL (<2.0); pH Urine 6.5 (5.0-9.0)
[2024-03-21 14:42] LABS: Prothrombin Time 22.5 Seconds (11.1-14.7)
[2024-03-21 14:46] LABS: Alanine Aminotransferase 46 U/L (6-50); Albumin Level 4.5 g/dL (3.5-5.1); Alkaline Phosphatase 38 U/L (38-126); Anion Gap 6 mmol/L (4-12); Aspartate Amino Transferase 47 U/L (17-59); Bilirubin,Total 0.5 mg/dL (0.2-1.3); Blood Urea Nitrogen 17 mg/dL (9-20); Calcium 9.6 mg/dL (8.4-10.2); Carbon Dioxide 32 mmol/L (22-30); Chloride 102 mmol/L (98-107); Cholesterol 139 mg/dL (0-200); Estimated Glomerular Filt Rate 55; Glucose 111 mg/dL (65-110); HDL Direct 67 mg/dL; Potassium 4.5 mmol/L (3.4-5.0); Sodium 140 mmol/L (137-145); Triglycerides 70 mg/dL (<150)
[2024-03-21 15:10] LABS: Creatinine Urine 48.7 mg/dL
[2024-03-21 15:11] LABS: LDL Cholesterol Direct 46 mg/dL
[2024-03-21 15:17] LABS: Hemoglobin A1C 6.2 % (<5.7)
[2024-03-21 16:49] LABS: Microalbumin Urine Random < 6.0 mg/L (0-16.7)
[2024-03-21 16:52] LABS: MALB Creatinine Ratio < 12.3 mg/g (0-30)
[2024-03-21 17:01] LABS: Prostate Specific Antigen 3.6 ng/mL (< OR = 4.0)
[2024-03-22 09:33] LABS: GGT 7 U/L (3-70)
== END 2024-03-21 10:30 | disposition home or self-care (01) ==
LOC: ANHGOSHLAB 10:32
PROVIDERS: PCP Internal Medicine; Visit Provider Internal Medicine
DX: E11.9 Type 2 diabetes mellitus without complications (principal); R97.20 Elevated prostate specific antigen [PSA]; Z79.899 Other long term (current) drug therapy; R74.8 Abnormal levels of other serum enzymes; D68.51 Activated protein C resistance; Z13.220 Encounter for screening for lipoid disorders
CPT/HCPCS: 36415; 80053; 80061; 81003; 82043; 82977; 83036; 84153; 85610

== ENCOUNTER 2024-07-30 08:52 | Outpatient (CLI) | payer MEDICARE, SELFPAY ==
--- OUTSIDE RECORDS SUMMARY | 2024-07-30 09:23 | XMS_ITS | Patient Health Summary ---
Author Organization [facility] Address [address] [place] [address] Care Team Providers Care Dope Firer Name Role Phone Unavailable Primary Care Provider Unavailabl e Note from [facility],non-owned Affiliates and Associated Physician Practices is amultiple site organization consisting of ambulatory clinics and hospital sitesin [place], [place], [place] and [place]. This disclosure is being madepursuant to the Care Everywhere program and may not contain all information available regarding this patient. Last updated 18.[facility] Social History Tobacco Use Types Packs/Day Years Used Date Smoking Tobacco: Never Assessed Sex and Gender Information Value Date Recorded Sex Assigned at Not on file Gender Identity Not on file Sexual Orientation Not on file Procedures * DERMATOPATHOLOGY(Performed 02/14/2024) Results * DERMATOPATHOLOGY (02/14/2024 3:33 AM CDT) Case Report Dermatopathology Report Case: [id number] Authorizing Provider: Bhavik Hermosillo MD Collected: 02/14/2024 03:33 AM Ordering Location: [facility] - Received: 02/14/2024 04:13 PM DermPath Lab Pathologist: Malgorzata Busby MD Specimen: Skin, mid upper lip 1:15 PM CDT DERMATOPATHOLOGY LABORATORY Final Diagnosis Specimen A. 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 The specimen consists of a shave biopsy measuring four pieces 2x2x1;4x3x1;2x3x1;3 x2x1 mm. Jar 0. 1:15 PM CDT DERMATOPATHOLOGY LABORATORY Microscopic Description Specimen A. SKIN, mid upper lip: Sections show a lobular tumor composed of aggregates of epithelial cells extending from the epidermis into the dermis. The aggregates are composed of squamoid cells showing rare glycogen vacuolation (pale-staining cytoplasm). CD34 highlights the squamoid cells. Mib-1 demonstrates a mildly increased proliferative rate in the lower epidermis. 1:15 PM CDT DERMATOPATHOLOGY LABORATORY Disclaimer An external and internal positive and negative controls are appropriate for the histochemical, immunohistochemical and immunofluorescence stain(s) in this case (if any), except where stated explicitly. The performance characteristics of the stain(s) cited in this report were developed and its performance characteristic determined by the Dermatopathology Laboratory at [facility], directed by Dr. Bing Espinoza. These tests need not be, and therefore are not, approved by the [place] Food and Drug Administration. The tests are used for clinical purposes. Billing Codes Specimen Charges Stain Charges 85672 1 51033 22425 1 1 4 1:15 PM CDT DERMATOPATHOLOGY LABORATORY Embedded Images 1:15 PM CDT DERMATOPATHOLOGY LABORATORY Pathology/Cytolo gy TISSUE SPECIMEN FROM SKIN / Unknown 02/14/2024 3:33 AM CDT 02/14/2024 4:13 PM CDT Bhavik Hermosillo MD LAB - PATHOLOGY/CYTO LOGY ORDERABLES DERMATOPATHOLOGY LABORATORY [facility] - Department of Dermatology [address], [address] [phone]
--- OUTSIDE RECORDS SUMMARY | 2024-07-30 09:23 | XMS_ITS | Clinical Summary ---
Author Organization [employer] Address [address] Attn: Epic Prelude ADT VIKASH DODSON [phone] Care Team Providers Care Casino Change Attendant Name Role Phone Toño Anthony MD Primary Care Provider + Social History Tobacco Use Types Packs/Day Years Used Date Smoking Tobacco: Never Assessed Sex and Gender Information Value Date Recorded Sex Assigned at Not on file Legal Sex Male 4:40 AM [employer] Gender Identity Not on file Sexual Orientation Not on file Last Filed Vital Signs Vital Sign Reading Time Taken Comments Blood Pressure - - Pulse - - Temperature - - Respiratory Rate - - Oxygen Saturation - - Inhaled Oxygen Concentration - - Weight 93 kg (205 lb) 01/29/2018 3:00 PM CDT Information taken from Dr. Anthony records, 09/17/17 Height 172.7 cm (5' 8 ) 01/29/2018 3:00 PM CDT Information from Dr. Anthony office records, 09/17/17 Body Mass Index 31.17 01/29/2018 3:00 PM CDT Plan of Treatment Health Maintenance Due Date Last Done Comments DTAP/TDAP/TD VACCINES (1 - Tdap) 02/21/1976 FIT-DNA Q 3 years 2002 FIT/FOBT Q 1 year 2002 Flex Sig/CT Colonography Q 5 years 2002 PNEUMOCOCCAL VACCINE 50+ YEARS (1 of 1 - PCV) 02/21/20 07 ZOSTER VACCINE (1 of 2) 2007 INFLUENZA VACCINE (#1) 2023 COLORECTAL SCREENING 01/02/2027 01/02/2017 Colorectal Cancer Screening 01/02/2027 RSV VACCINE (60+ or ) (1 - 1-dose 75+ series) 02/21/2032 Care Teams Casino Change Attendant Relationship Specialty Start Date End Date Toño Anthony MD [address] [place] [phone] PCP - General Internal Medicine 01/29/18
--- OUTSIDE RECORDS SUMMARY | 2024-07-30 09:23 | XMS_ITS | Clinical Summary ---
Author Organization [facility] [employer] Address [address] [place] [address] Care Team Providers Care Engineering Faculty Member Name Role Phone Unavailable Primary Care Provider Unavailabl e Source Comments [facility] [employer],non-owned Affiliates and Associated Physician Practices is amultiple site organization consisting of ambulatory clinics and hospital sitesin [place], [place], [place] and [place]. This disclosure is being madepursuant to the Care Everywhere program and may not contain all information available regarding this patient. Last updated 18.[facility] [employer] Social History Tobacco Use Types Packs/Day Years Used Date Smoking Tobacco: Never Assessed Sex and Gender Information Value Date Recorded Sex Assigned at Not on file Gender Identity Not on file Sexual Orientation Not on file Plan of Treatment Health Maintenance Due Date Last Done Comments COLOGUARD (AGES 45-75) - COL ON CA SCREENING 1957 COLON MONITORING 1957 COLONOSCOPY - COLON CA SCREENING 1957 CT COLONOGRAPHY - COLON CA SCREENING 1957 Colorectal Cancer Screening 1957 FIT - COLON CA SCREENING 1957 FLEX SIG - COLON CA SCREENING 1957 LIPID TESTING 1957 MEDICARE AWV 12 MONTHS 1957 HEPATITIS C SCREENING 02/16/1975 DTAP/TDAP/TD VACCINES (1 - Tdap) 02/21/1976 PNEUMOCOCCAL VACCINE 50+ (1 of 1 - PCV) 2007 ZOSTER VACCINE (1 of 2) 2007 COVID-19 VACCINE ( - 2023-2 5 season) 2024 INFLUENZA VACCINE (#1) 2024 DEPRESSION SCREENING 05/21/2024 Respiratory Syncytial Virus (RSV) Vaccine Pt: or over 60 yrs (1 - 1-dose 75+ series) 02/21/2032 HEPATITIS B VACCINE Aged Out No longe r eligible based on patient's age to complete this topic HIB VACCINE Aged Out No longer eligi ble based on patient's age to complete this topic HPV VACCINE Aged Out No longer eligi ble based on patient's age to complete this topic MENINGOCOCCAL (Group B) VACC INE SHARED DECISION-MAKING Aged Out No longer eligibl e based on patient's age to complete this topic MENINGOCOCCAL GROUPS A/C/Y/W VACCINE Aged Out No longer eligible b ased on patient's age to complete this topic Truman Cleaning Personal/Family Self 1955
--- OUTSIDE RECORDS SUMMARY | 2024-07-30 09:23 | XMS_ITS | Referral Summary ---
Author Organization [facility] [place] [address] [place] [address] [address] [place] [address] Care Team Providers Care Custom Home Installer Name Role Phone Toño Anthony MD Primary Care Provider [phone] Encounters Date Type Department Care Team Description 07/18/2024 8:00 AM AVIONICS INTEGRATION ENGINEER Office Visit [facility] Cardiology [address] [facility] [address] [place] [address] Kesha Messer NP Atrial flutter, unspecified type (HCC) (Primary Dx); Paroxysmal atrial fibrillation (HCC); History of DVT (deep vein thrombosis); Chronic anticoagulation; Hyperlipidemia, unspecified hyperlipidemia type from Last 3 Months Allergies No known active allergies Medications rosuvastatin (CRESTOR) 5 mg tablet Take 1 tablet (5 mg total) by mouth every other day 3 Active warfarin (COUMADIN) 5 mg tablet Take 1 tablet (5 mg total) by mouth as directed 5 mg for 2 days then 6 mg for 1 day. 3 Active warfarin (COUMADIN) 4 mg tablet 5 mg for 2 days then 6 mg for 1 day 3 Active warfarin (COUMADIN) 2 mg tablet 5 mg for 2 days then 6 mg for 1 day 3 Active omega-3 fatty acids-fish oil 300-1,000 mg capsule Take 2 capsules (2 g total) by mouth 2 (two) times a day Active folic acid 20 mg capsule Take 1 tablet by mouth daily Active cyanocobalamin, vitamin B-12, (VITAMIN B-12 ORAL) Take 1 tablet by mouth daily Active ascorbic acid (vitamin C) 1,000 mg tablet Take 1 tablet (1,000 mg total) by mouth daily Active multivit-min/fe rrous fumarate (MULTI VITAMIN ORAL) Take 1 tablet by mouth daily Active OneTouch Ultra Test strip USE 1 STRIP TO CHECK GLUCOSE ONCE DAILY 3 Active calcium carb/vit D3/minerals (CALCIUM-VITAMI N D ORAL) Take 600 mg by mouth 2 (two) times a day Active niacinamide 500 mg tablet Take 2 tablets (1,000 mg total) by mouth 2 (two) times a day with meals Active warfarin (COUMADIN) 1 mg tablet Take 1 tablet (1 mg total) by mouth Active Farxiga 10 mg tablet Take 1 tablet (10 mg total) by mouth daily 4 Active metoprolol XL (TOPROL-XL) 50 mg extended release tablet Take 1 tablet (50 mg total) by mouth daily 90 tablet 3 4 03/24/20 25 Active dronedarone (MULTAQ) 400 mg tablet Take 1 tablet (400 mg total) by mouth 2 (two) times a day with meals 60 tablet 11 4 04/19/20 25 Active metFORMIN (GLUCOPHAGE) 500 mg tablet Take 1 tablet (500 mg total) by mouth 2 (two) times a day 3 07/18/19 25 Discontinu ed(Therapy completed) Active Problems Problem Noted Date Diagnosed Date A-fib 07/13/2023 Paroxysmal atrial fibrillation 05/30/2023 Atrial flutter 12/01/2022 History of DVT (deep vein thrombosis) 12/01/2022 Anticoagulation management encounter 12/01/2022 Hyperlipidemia 12/01/2022 Social History Tobacco Use Types Packs/Day Years Used Date Smoking Tobacco: Never Passive Smoke Exposure: Never Smokeless Tobacco: Never Tobacco Cessation:Counseling Given: Not Answered AUDIT-C Answer Date Recorded Q1: How often do you have a drink containing alcohol? Never 07/13/2023 Q2: How many drinks containi ng alcohol do you have on a typical day when you are drinking? Patient does not drink Q3: How often do you have si x or more drinks on one occasion? Never 07/13/2023 Personal Safety Answer Date Recorded Have you ever been in or are you currently in a harmful physical or emotional relationship or is someone making you feel afraid or unsafe? Denies 07/13/2023 Sex and Gender Information Value Date Recorded Sex Assigned at Not on file 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:46 AM AVIONICS INTEGRATION ENGINEER Gender Identity Not on file Sexual Orientation Not on file Last Filed Vital Signs Vital Sign Reading Time Taken Comments Blood Pressure 106/66 07/18/2024 7:51 AM AVIONICS INTEGRATION ENGINEER Pulse 66 07/18/2024 7:51 AM AVIONICS INTEGRATION ENGINEER Temperature 36.7 C (98.1 F) 07/13/2023 1:30 PM AVIONICS INTEGRATION ENGINEER Respiratory Rate 16 10/16/2023 8:13 AM CDT Oxygen Saturation 96% 07/18/2024 7:51 AM AVIONICS INTEGRATION ENGINEER Inhaled Oxygen Concentration - - Weight 85.7 kg (189 lb) 07/18/2024 7:51 AM AVIONICS INTEGRATION ENGINEER Height 170.2 cm (5' 7 ) 07/18/2024 7:51 AM AVIONICS INTEGRATION ENGINEER Body Mass Index 29.6 07/18/2024 7:51 AM AVIONICS INTEGRATION ENGINEER Plan of Treatment Not on file Medical Devices Implanted Type Area Commissions Coordinator Device Identifier Shelf Expiration Date Model / Serial / Lot [employer] Vascade Mvp 6-12fr Venous Closure [id number] - [id number] Implanted:Qty : 1 on 07/13/2023 by Volodymyr Richards MD at [facility] Collagen Right: Common Femoral Artery [employer] 03/21/2025 800-612C- 10U / / [id number] [employer] Vascade Mvp 6-12fr Venous Closure [id number] - [id number] Implanted:Qty : 1 on 07/13/2023 by Volodymyr Richards MD at [facility] Collagen Right: Common Femoral Artery [employer] 03/15/2025 800-612C- 10U / / [id number] [employer] Vascade Mvp 6-12fr Venous Closure [id number] - [id number] Implanted:Qty : 1 on 07/13/2023 by Volodymyr Richards MD at [facility] Collagen Right: Common Femoral Artery [employer] 03/15/2025 800-612C- 10U / / [id number] Mesh Mesh Bilateral: Inguinal Urolift Bladder Joint Right: First Toe Insurance COMMERCIAL GENERIC MEDICARE COMMERCIAL GENERIC Care Teams Custom Home Installer Relationship Specialty Start Date End Date Toño Anthony MD [address] [facility] [address] [place] [address] PCP - General Internal Medicine 11/18/22
--- OUTSIDE RECORDS SUMMARY | 2024-07-30 09:23 | XMS_ITS | Referral Summary ---
Author Organization [facility] Address [address] [place] [address] Care Team Providers Care Station Tender Name Role Phone Unavailable Primary Care Provider Unavailabl e Source Comments [facility],non-owned Affiliates and Associated Physician Practices is amultiple site organization consisting of ambulatory clinics and hospital sitesin [place], [place], [place] and [place]. This disclosure is being madepursuant to the Care Everywhere program and may not contain all information available regarding this patient. Last updated 18.[facility] Click With Me Now Social History Tobacco Use Types Packs/Day Years Used Date Smoking Tobacco: Never Assessed Sex and Gender Information Value Date Recorded Sex Assigned at Not on file Gender Identity Not on file Sexual Orientation Not on file Plan of Treatment Not on file [address] [place] [address] Mary CarmenTruman heck Personal/Family Self 1955
--- OUTSIDE RECORDS SUMMARY | 2024-07-30 09:23 | XMS_ITS | Clinical Summary ---
Author Organization [facility] [place] [address] Address [address] [place] [address] Care Team Providers Care Seafood Technology Specialist Name Role Phone Toño Anthony MD Primary Care Provider [phone] Allergies No known active allergies Medications rosuvastatin [...] 12/01/2022 Anticoagulation management encounter 12/01/2022 Hyperlipidemia 12/01/2022 Encounters Date Type Department Care Team Description 07/18/2024 8:00 AM MOTORS AND GENERATORS INSPECTOR Office Visit [facility] Cardiology [address] [facility] [address] [place] [address] Kesha Messer NP Atrial flutter, unspecified type (HCC) (Primary Dx); Paroxysmal atrial fibrillation (HCC); History of DVT (deep vein thrombosis); Chronic anticoagulation; Hyperlipidemia, unspecified hyperlipidemia type from Last 3 Months Surgical History Surgery Date Site/Laterality Comments HERNIA REPAIR 05/21/2007 - 05/20/2008 FOOT SURGERY PROSTATE SURGERY Medical History Medical History Date Comments Atrial fibrillation (HCC) Type 2 diabetes mellitus (HCC) Factor 5 Leiden deficency Hyperlipidemia Social History Tobacco Use Types Packs/Day Years [...] on file 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:46 AM MOTORS AND GENERATORS INSPECTOR Gender Identity Not on file Sexual Orientation Not on file Obstetrics History Last Filed Vital Signs Vital Sign Reading Time Taken Comments Blood Pressure 106/66 07/18/2024 7:51 AM MOTORS AND GENERATORS INSPECTOR Pulse 66 07/18/2024 7:51 AM MOTORS AND GENERATORS INSPECTOR Temperature 36.7 C (98.1 F) 07/13/2023 1:30 PM MOTORS AND GENERATORS INSPECTOR Respiratory Rate 16 10/16/2023 8:13 AM CDT Oxygen Saturation 96% 07/18/2024 7:51 AM MOTORS AND GENERATORS INSPECTOR Inhaled Oxygen Concentration - - Weight 85.7 kg (189 lb) 07/18/2024 7:51 AM MOTORS AND GENERATORS INSPECTOR Height 170.2 cm (5' 7 ) 07/18/2024 7:51 AM MOTORS AND GENERATORS INSPECTOR Body Mass Index 29.6 07/18/2024 7:51 AM MOTORS AND GENERATORS INSPECTOR Plan of Treatment Health Maintenance Due Date Last Done Comments Colon Cancer Screening-Colonoscopy 1955 Depression Screening 1955 Hepatitis C Screening 1955 Prostate Cancer Screening-PSA 1955 DTaP/Tdap/Td Vaccine (1 - Tdap) 02/21/1968 Hepatitis B Screening 1975 Pneumococcal vaccine 65+ (2 of 2 - PCV) 04/12/2019 04/12/2018, 04/20/2014 Well Visit 65+ 2022 Covid-19 Vaccine (5 - 2023-2 5 season) 2024 03/22/2022, 11/13/2021, 05/01/2021, Additional history exists Influenza Vaccine (#1) 2024 , 02/13/2021, 02/19/2012 Fall Risk Assessment 07/13/2024 07/13/2023 Zoster Vaccine Completed 07/11/2020, 02/18, 04/20/2014 Medical Devices Implanted Type Area Feller Seam Operator Device Identifier Shelf Expiration Date Model / Serial / Lot [employer] Vascade Mvp 6-12fr Venous Closure [id number] - [id number] Implanted:Qty : 1 on 07/13/2023 by Volodymyr Richards MD at [facility] Collagen Right: Common Femoral Artery [employer] 03/21/2025 800-612C- 10U / / [id number] [employer] Vascade Mvp 6-12fr Venous Closure [id number] - [id number] Implanted:Qty : 1 on 07/13/2023 by Volodymyr Richards MD at [facility] Collagen Right: Common Femoral Artery [employer] 03/15/2025 800-612C- 10U / / [id number] [employer] Vascade Mvp 6-12fr Venous Closure [id number] - [id number] Implanted:Qty : 1 on 07/13/2023 by Volodymyr Richards MD at [facility] Collagen Right: Common Femoral Artery [employer] 03/15/2025 800-612C- 10U / / [id number] Mesh Mesh Bilateral: Inguinal Urolift Bladder Joint Right: First Toe Insurance MEDICARE COMMERCIAL GENERIC MEDICARE [facility] Address: [address] [address] COMMERCIAL GENERIC Care Teams Seafood Technology Specialist Relationship Specialty Start Date End Date Toño Anthony MD [address] [facility] [address] [place] [address] PCP - General Internal Medicine 11/18/22
--- OUTSIDE RECORDS SUMMARY | 2024-07-30 09:23 | XMS_ITS | Encounter Summary ---
Author Organization [facility] Address [address] [place] [address] Care Team Providers Care Turner Splitter Machine Operator Name Role Phone Unavailable Primary Care Provider Unavailabl e Encounter Details Date Type Department Care Team (Late st Contact Info) Description 02/14/2024 Lab Requisition [facility] - DermPath Lab [address] [place] [address] Bhavik Hermosillo MD [address] [place] [address] Social History Tobacco Use Types Packs/Day Years Used Date Smoking Tobacco: Never Assessed Sex and Gender Information Value Date Recorded Sex Assigned at Not on file Gender Identity Not on file Sexual Orientation Not on file documented as of this encounter Plan of Treatment Not on file documented as of this encounter Procedures Procedure Name Priority Date/Time Associated Diagnosis Comments DERMATOPATHOLOGY Routine 02/14/2024 3:33 AM CDT documented in this encounter Results * DERMATOPATHOLOGY (02/14/2024 3:33 AM CDT) Case Report Dermatopathology Report Case: [id number] Authorizing Provider: Bhavik Hermosillo MD Collected: 02/14/2024 03:33 AM Ordering Location: [facility] Physician [facility] - Received: 02/14/2024 04:13 PM DermPath Lab [...] characteristic determined by the Dermatopathology Laboratory at [facility], directed by Dr. Bing Espinoza. These tests need not be, and therefore are not, approved by the [place] Food and Drug Administration. The tests are used for clinical purposes. Billing Codes Specimen Charges Stain Charges 23850 1 96336 46231 1 1 4 1:15 PM CDT DERMATOPATHOLOGY LABORATORY Embedded Images 1:15 PM CDT DERMATOPATHOLOGY LABORATORY Pathology/Cytolo gy TISSUE SPECIMEN FROM SKIN / Unknown 02/14/2024 3:33 AM CDT 02/14/2024 4:13 PM CDT Bhavik Hermosillo MD LAB - PATHOLOGY/CYTO LOGY ORDERABLES DERMATOPATHOLOGY LABORATORY [facility] - Department of Dermatology [address], [address] [phone] documented in this encounter Visit Diagnoses Not on filedocumented in this encounter
[2024-07-30 13:25] LABS: Basophils Absolute Auto 0.1 K/mm3 (0.0-0.1); Basophils Percent Auto 1.7 % (0.2-1.2); Eosinophils Absolute Auto 0.3 K/mm3 (0-0.3); Hematocrit 48.7 % (42.0-52.0); Hemoglobin 15.5 g/dL (14.0-18.0); Immature Granulocyte Absolute 0.01 K/mm3 (0.00-0.031); Immature Granulocyte Percent A 0.2 % (0-0.5); Lymphocytes Absolute Auto 1.29 K/mm3 (0.9-3.2); Lymphocytes Percent Auto 30.9 % (18.3-44.2); Mean Corpuscular HGB Conc 31.8 g/dl (32-36); Mean Corpuscular Hemoglobin 31.3 pg (26-34); Mean Corpuscular Volume 98.4 fl (80-100); Mean Platelet Volume 9.5 fl (7.4-10.4); Monocytes Absolute Auto 0.5 K/mm3 (0.1-0.6); Monocytes Percent Auto 12.2 % (2.6-8.5); Platelet Count Result 213 k/mm3 (150-375); Red Blood Count 4.95 M/mm3 (4.6-6.20); Red Cell Distribution Width 14.6 % (11.5-14.5); White Blood Count 4.2 K/mm3 (4.5-10.0)
[2024-07-30 13:34] LABS: INR 3.2; Prothrombin Time 33.1 Seconds (11.1-14.7)
[2024-07-30 14:01] LABS: Alanine Aminotransferase 49 U/L (6-50); Albumin Level 4.4 g/dL (3.5-5.1); Alkaline Phosphatase 48 U/L (38-126); Anion Gap 8 mmol/L (4-12); Aspartate Amino Transferase 81 U/L (17-59); Bilirubin,Total 0.4 mg/dL (0.2-1.3); Blood Urea Nitrogen 22 mg/dL (9-20); Calcium 9.3 mg/dL (8.4-10.2); Carbon Dioxide 30 mmol/L (22-30); Chloride 104 mmol/L (98-107); Cholesterol 124 mg/dL (0-200); Estimated Glomerular Filt Rate 46; Glucose 106 mg/dL (65-110); HDL Direct 60 mg/dL; Potassium 4.4 mmol/L (3.4-5.0); Sodium 142 mmol/L (137-145); Triglycerides 65 mg/dL (<150)
[2024-07-30 14:13] LABS: LDL Cholesterol Direct 36 mg/dL
[2024-07-30 14:17] LABS: Vitamin D 25 Hydroxy 57.8 ng/mL
[2024-07-30 14:40] LABS: Creatinine Urine 139.6 mg/dL
[2024-07-30 14:44] LABS: Microalbumin Urine Random 15.3 mg/L (0-16.7)
[2024-07-30 17:08] LABS: Hemoglobin A1C 6.3 % (<5.7)
== END 2024-07-30 08:53 | disposition home or self-care (01) ==
PROVIDERS: PCP Internal Medicine; Visit Provider Internal Medicine
DX: D68.51 Activated protein C resistance (principal); E55.9 Vitamin D deficiency, unspecified; E11.9 Type 2 diabetes mellitus without complications; D68.9 Coagulation defect, unspecified; Z13.220 Encounter for screening for lipoid disorders; Z13.29 Encounter for screening for other suspected endocrine disorder; Z79.899 Other long term (current) drug therapy
CPT/HCPCS: 36415; 80053; 80061; 82043; 82306; 83036; 84439; 84443; 85025; 85610

== ENCOUNTER 2024-08-25 08:28 | Outpatient (CLI) | payer MEDICARE, SELFPAY ==
--- OUTSIDE RECORDS SUMMARY | 2024-08-25 08:51 | XMS_ITS | Clinical Summary ---
Author Organization [facility] Address [address] [facility] Attn: Epic Prelude ADT VIKASH DODSON [address] Care Team Providers Care Certified Indoor Environmentalist Name Role Phone Toño Anthony MD Primary Care Provider + Social History Tobacco Use Types Packs/Day Years Used Date Smoking Tobacco: Never Assessed Sex and Gender Information Value Date Recorded Sex Assigned at Not on file Legal Sex Male 4:40 AM HEAD OF ENGLISH Gender Identity Not on file Sexual Orientation [...] - 1-dose 75+ series) 02/21/2032 Care Teams Certified Indoor Environmentalist Relationship Specialty Start Date End Date Toño Anthony MD [address] [place] [address] PCP - General Internal Medicine 01/29/18
--- OUTSIDE RECORDS SUMMARY | 2024-08-25 08:51 | XMS_ITS | Encounter Summary ---
Author Organization [facility] Address [address] [place] [address] Care Team Providers Care Storeroom Supervisor Name Role Phone Unavailable Primary Care Provider Unavailabl e Encounter Details Date Type Department Care Team (Late st Contact Info) Description 02/14/2024 Lab Requisition [facility] - DermPath Lab [address] [place] [address] Bhavik Hermosillo MD [address] [place] [address] Social History Tobacco Use Types [...] AM CDT) Case Report Dermatopathology Report Case: [id number] Authorizing Provider: Bhavik Hermosillo MD Collected: 02/14/2024 03:33 AM Ordering Location: [facility] Physician [facility] - Received: 02/14/2024 04:13 PM DermPath Lab [...] characteristic determined by the Dermatopathology Laboratory at [facility], directed by Dr. Bing Espinoza. These tests need not be, and therefore are not, approved by the [place] Food and Drug Administration. The tests are used for clinical purposes. Billing Codes Specimen Charges Stain Charges 53531 1 06589 96141 1 1 4 1:15 PM CDT DERMATOPATHOLOGY LABORATORY Embedded Images 1:15 PM CDT DERMATOPATHOLOGY LABORATORY Pathology/Cytolo gy TISSUE SPECIMEN FROM SKIN / Unknown 02/14/2024 3:33 AM CDT 02/14/2024 4:13 PM CDT Bhavik Hermosillo MD LAB - PATHOLOGY/CYTO LOGY ORDERABLES DERMATOPATHOLOGY LABORATORY [facility] - Department of Dermatology [address], [address] [phone] documented in this encounter Visit Diagnoses Not on filedocumented in this encounter
--- OUTSIDE RECORDS SUMMARY | 2024-08-25 08:51 | XMS_ITS | Clinical Summary ---
Author Organization [facility] Address [address] [place] [address] Care Team Providers Care Tv News Director Name Role Phone Unavailable Primary Care Provider Unavailabl e Source Comments [facility],non-owned Affiliates and Associated Physician Practices is amultiple site organization consisting of ambulatory clinics and hospital sitesin [place], [place], [place] and [place]. This disclosure is being madepursuant to the Care Everywhere program and may not contain all information available regarding this patient. Last updated 18.[facility] Social History Tobacco Use Types Packs/Day Years [...]
--- OUTSIDE RECORDS SUMMARY | 2024-08-25 08:51 | XMS_ITS | Referral Summary ---
Author Organization [facility] [address] [place] [address] Address [address] [facility] [address] [place] [address] Care Team Providers Care Cupola Operator Insulation Name Role Phone Toño Anthony MD Primary Care Provider [phone] Encounters Date Type Department Care Team Description 08/14/2024 Results Follow-Up [facility] Cardiology [address] [place] [address] Medicine 8th [place] [address] [place] [address] Ramona Orozco NP 08/14/2024 10:30 AM CDT Office Visit [facility] Cardiology [facility] [facility] 8th [place] [address] [place] [address] Ramona Orozco NP High risk medications (not anticoagulants) long-term use (Primary Dx); Atrial flutter, unspecified type (HCC) 07/18/2024 8:00 AM TRUCK DRIVER SUPERVISOR Office Visit [facility] Cardiology [address] [facility] [address] [place] [address] Kesha Messer NP Atrial flutter, unspecified type [...] 90 tablet 3 4 03/24/20 25 Active lisinopriL (PRINIVIL,ZESTR IL) 2.5 mg tablet Take 1 tablet (2.5 mg total) by mouth daily 5 Active dronedarone (MULTAQ) 400 mg tablet Take 1 tablet (400 mg total) by mouth 2 (two) times a day with meals 60 tablet 5 5 08/10/19 26 Active dronedarone (MULTAQ) 400 mg tablet Take 1 tablet (400 mg total) by mouth 2 (two) times a day with meals 60 tablet 11 4 08/15/19 25 Discontinu ed(Reorder ) Active Problems Problem Noted Date Diagnosed Date [...] on file 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:46 AM TRUCK DRIVER SUPERVISOR Gender Identity Not on file Sexual Orientation Not on file Last Filed Vital Signs Vital Sign Reading Time Taken Comments Blood Pressure 101/59 08/14/2024 10:09 AM CDT Pulse 67 08/14/2024 10:09 AM CDT Temperature 36.7 C (98.1 F) 07/13/2023 1:30 PM TRUCK DRIVER SUPERVISOR Respiratory Rate 16 10/16/2023 8:13 AM CDT Oxygen Saturation 95% 08/14/2024 10:09 AM CDT Inhaled Oxygen Concentration - - Weight 85.8 kg (189 lb 3.2 oz) 08/14/2024 10:09 AM CDT Height 170.2 cm (5' 7 ) 08/14/2024 10:09 AM CDT Body Mass Index 29.63 08/14/2024 10:09 AM CDT Plan of Treatment Not on file Medical Devices Implanted Type Area Biotechnician Device Identifier Shelf Expiration Date Model / Serial / Lot [employer] Vascade Mvp 6-12fr Venous Closure [id number] - [id number] Implanted:Qty : 1 on 07/13/2023 by Volodymyr Richards MD at [facility] Right: Common Femoral Artery [employer] 03/21/2025 800-612C- 10U / / [id number] [employer] Vascade Mvp 6-12fr Venous Closure [id number] - [id number] Implanted:Qty : 1 on 07/13/2023 by Volodymyr Richards MD at [facility] Collagen Right: Common Femoral Artery [employer] 03/15/2025 800-612C- 10U / / [id number] [employer] Vascade Mvp 6-12fr Venous Closure [id number] - [id number] Implanted:Qty : 1 on 07/13/2023 by Volodymyr Richards MD at [facility] Collagen Right: Common Femoral Artery [employer] 03/15/2025 800-612C- 10U / / [id number] Mesh Mesh Bilateral: Inguinal Urolift Bladder Joint Right: First Toe Procedures Procedure Name Priority Date/Time Associated Diagnosis Comments ECG 12-LEAD Routine 08/14/2024 10:11 AM CDT Atrial flutter, unspecified type (HCC) from Last 3 Months Results * ECG 12 lead (08/14/2024 10:11 AM CDT) us Ramona Orozco PSYCHOLOGICAL SCIENCE PROFESSOR ECG ORDERABLES Edited R esult - Final from Last 3 Months Insurance MEDICARE COMMERCIAL GENERIC MEDICARE COMMERCIAL GENERIC Care Teams Cupola Operator Insulation Relationship Specialty Start Date End Date Toño Anthony MD [address] [place] [address] [place] [address] PCP - General Internal Medicine 11/18/22
--- OUTSIDE RECORDS SUMMARY | 2024-08-25 08:51 | XMS_ITS | Encounter Summary ---
Author Organization [facility] Address [address] [place] [address] Phone Care Team Providers Care Waist Presser Name Role Phone Toño Anthony MD Primary Care Provider [phone] Encounter Details Date Type Department Care Team (Late st Contact Info) Description 08/14/2024 Results Follow-Up [facility] Cardiology [address] [facility] 8th [place] [address] [place] [address] Ramona Orozco NP [address] [facility] [address] [place] [address] Social History Tobacco Use Types Packs/Day Years Used Date Smoking Tobacco: Never Passive Smoke Exposure: Never Smokeless Tobacco: Never AUDIT-C Answer Date Recorded Q1: How often [...] on file 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:46 AM TRANSPLANT RN Gender Identity Not on file Sexual Orientation Not on file documented as of this encounter Plan of Treatment Not on file documented as of this encounter Visit Diagnoses Not on filedocumented in this encounter Care Teams Waist Presser Relationship Specialty Start Date End Date Toño Anthony MD [address] [facility] [address] [facility] [address] [place] [address] PCP - General Internal Medicine 11/18/22 documented as of this encounter
--- OUTSIDE RECORDS SUMMARY | 2024-08-25 08:51 | XMS_ITS | Clinical Summary ---
Author Organization [facility] [place] [address] Address [address] [place] [address] Care Team Providers Care Hospital Aides And Assistants Teacher Name Role Phone Toño Anthony MD Primary Care Provider [phone] Allergies No known active allergies Medications rosuvastatin [...] Date Type Department Care Team Description 08/14/2024 10:30 AM CDT Office Visit [facility] Cardiology [facility] 8th [place] [address] [place] [address] Ramona Orozco NP High risk medications (not anticoagulants) long-term use (Primary Dx); Atrial flutter, unspecified type (HCC) 08/14/2024 Results Follow-Up [facility] Cardiology [address] [place] [address] Medicine 8th [place] [address] [place] [address] Ramona Orozco NP 07/18/2024 8:00 AM BIOLOGY RESEARCH ASSISTANT Office Visit [facility] Cardiology [address] [facility] [address] [place] [address] Kesha Messer NP Atrial flutter, unspecified [...] on file 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:46 AM BIOLOGY RESEARCH ASSISTANT Gender Identity Not on file Sexual Orientation Not on file Obstetrics History Last Filed Vital Signs Vital Sign Reading Time Taken Comments Blood Pressure 101/59 08/14/2024 10:09 AM CDT Pulse 67 08/14/2024 10:09 AM CDT Temperature 36.7 C (98.1 F) 07/13/2023 1:30 PM BIOLOGY RESEARCH ASSISTANT Respiratory Rate 16 10/16/2023 8:13 AM CDT Oxygen Saturation 95% 08/14/2024 10:09 AM CDT Inhaled Oxygen Concentration - - Weight 85.8 kg (189 lb 3.2 oz) 08/14/2024 10:09 AM CDT Height 170.2 cm (5' 7 ) 08/14/2024 10:09 AM CDT Body Mass Index 29.63 08/14/2024 10:09 AM CDT Plan of Treatment Health Maintenance Due [...] 2024 03/22/2022, 11/13/2021, 05/01/2021, Additional history exists Fall Risk Assessment 07/13/2024 07/13/2023 Influenza Vaccine (Season Ended) 2025 03/22/2022, 02/13/2021, 02/19/2012 Zoster Vaccine Completed 07/11/2020, 02/18, 04/20/2014 Medical Devices Implanted Type Area Carrot Buncher Device Identifier Shelf Expiration Date Model / Serial / Lot [employer] Vascade Mvp 6-12fr Venous Closure [id number] - [id number] Implanted:Qty : 1 on 07/13/2023 by Volodymyr Richards MD at [facility] Collagen Right: Common Femoral Artery [employer] 03/21/2025 800-612C- 10U / / [id number] [employer] Vascade Mvp 6-12fr Venous Closure [id number] - [id number] Implanted:Qty : 1 on 07/13/2023 by Volodymyr Richards MD at [facility] Collagen Right: Common Femoral Artery [employer] 03/15/2025 800-612C- 10U / / [id number] [employer] Vascade Mvp 6-12fr Venous Closure [id number] - [id number] Implanted:Qty : 1 on 07/13/2023 by Volodymyr Richards MD at [facility] Collagen Right: Common Femoral Artery [employer] 03/15/2025 800-612C- 10U / / [id number] Mesh Mesh Bilateral: Inguinal Urolift Bladder Joint Right: First Toe Procedures Procedure Name Priority Date/Time Associated Diagnosis Comments ECG 12-LEAD Routine 08/14/2024 10:11 AM CDT Atrial flutter, unspecified type (HCC) from Last 3 Months Results * ECG 12 lead (08/14/2024 10:11 AM CDT) us Ramona Orozco RN STAFF ECG ORDERABLES Edited R esult - Final from Last 3 Months Insurance * Guarantor: Mary CarmenTruman heck Dhara Account Type Relation to Patient Date of Phone Billing Address Personal/Family Self 1955 [address] [facility] [facility] [place], [place] [phone] MEDICARE COMMERCIAL GENERIC * Guarantor: BlackTruman Account Type Relation to Patient Date of Phone Billing Address Personal/Family Self 1955 [address] [facility] [address] [place] [id number] MEDICARE COMMERCIAL GENERIC Care Teams Hospital Aides And Assistants Teacher Relationship Specialty Start Date End Date Toño Anthony MD [address] INTERNAL MEDICINE [place], [place] [id number] PCP - General Internal Medicine 11/18/22
[2024-08-25 11:34] LABS: INR 1.9; Prothrombin Time 22.5 Seconds (11.1-14.7)
[2024-08-25 12:42] LABS: Anion Gap 8 mmol/L (4-12); Blood Urea Nitrogen 23 mg/dL (9-20); Calcium 9.4 mg/dL (8.4-10.2); Carbon Dioxide 30 mmol/L (22-30); Chloride 102 mmol/L (98-107); Estimated Glomerular Filt Rate 43; Glucose 99 mg/dL (65-110); Potassium 4.4 mmol/L (3.4-5.0); Sodium 140 mmol/L (137-145)
[2024-08-25 12:58] LABS: Alanine Aminotransferase 46 U/L (6-50); Aspartate Amino Transferase 83 U/L (17-59)
== END 2024-08-25 08:29 | disposition home or self-care (01) ==
LOC: ANHGOSHLAB 08:31
PROVIDERS: PCP Internal Medicine; Visit Provider Internal Medicine
DX: I48.92 Unspecified atrial flutter (principal); R79.89 Other specified abnormal findings of blood chemistry; Z79.899 Other long term (current) drug therapy
CPT/HCPCS: 36415; 80048; 84450; 84460; 85610

== ENCOUNTER 2024-09-08 12:24 | Outpatient (CLI) | payer MEDICARE, SELFPAY ==
--- NOTE | ~2024-09-08 | US_ITS ---
EXAMINATION: US renal BI DATE: 09/08/2024 12:42 INDICATION: Abnormal labs. TECHNIQUE: Multiple ultrasound grayscale images of the kidneys were obtained. COMPARISON: CT dated 10/25/2023 FINDINGS: The right kidney measures 10.2 x 4.3 x 6.0 cm. The left kidney measures 10.4 x 4.4 x 5.5 cm. The kidn eys demonstrate normal echogenicity. There are bilateral renal cysts measuring 3.5 cm in maximal diam eter on the right and 2.6 cm on the left. There is no hydronephrosis in either kidney. No stones jonel ntified. The bladder is normal with bilateral ureteral jets visualized on color Doppler. Prostate pedrito sures 4.4 x 3.8 x 3.9 cm with coarse echogenic and shadowing calcifications. IMPRESSION: 1. Bilateral renal cysts. Otherwise normal kidneys without hydronephrosis. 2. Prostatomegaly. Reviewed, dictated and finalized at location A.
== END 2024-09-08 12:25 | disposition home or self-care (01) ==
LOC: GOSHIMG 12:26
PROVIDERS: PCP Internal Medicine; Visit Provider Internal Medicine
DX: R79.89 Other specified abnormal findings of blood chemistry (principal); N28.1 Cyst of kidney, acquired; N40.0 Benign prostatic hyperplasia without lower urinary tract symptoms
CPT/HCPCS: 76775

== ENCOUNTER 2024-09-08 12:41 | Outpatient (CLI) | payer MEDICARE, SELFPAY ==
--- OUTSIDE RECORDS SUMMARY | 2024-09-08 14:03 | XMS_ITS | Encounter Summary ---
Author Organization [facility] Address [address] [place] [address] Phone Care Team Providers Care Client Technologies Analyst Name Role Phone Toño Anthony MD Primary Care Provider [phone] Encounter Details Date Type Department Care Team (Late st Contact Info) Description 08/14/2024 Results Follow-Up [facility] Cardiology [address] [facility] Advanced Medicine 8th [place] [address] [place] [address] Ramona Orozco NP [address] [facility] [address] [place] [address] Social History Tobacco Use Types Packs/Day Years [...] on file 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
--- OUTSIDE RECORDS SUMMARY | 2024-09-08 14:03 | XMS_ITS | Referral Summary ---
Author Organization [facility] [place] [address] [place] [address] Address [address] [facility] [address] [place] [address] Care Team Providers Care Video Manager Name Role Phone Toño Anthony MD Primary Care Provider [phone] Encounters Date Type Department Care Team Description 08/26/2024 Orders Only [facility] Federico Tsai MD 08/25/2024 Orders Only [facility] Federico Tsia MD 08/14/2024 Results Follow-Up [facility] Cardiology [address] [place] [address] Advanced Medicine 8th [place] [address] [place] [address] Ramona Orozco NP 08/14/2024 10:30 AM CDT Office Visit [facility] Cardiology [address] [place] [address] Medicine 8th [place] [address] [place] [address] Ramona Orozco NP High risk medications (not anticoagulants) long-term use (Primary Dx); Atrial flutter, unspecified type (HCC) 07/18/2024 8:00 AM EMPLOYMENT LEGAL ASSISTANT Office Visit [facility] Cardiology [address] [place] [address] [address] [place] [address] Kesha Messer NP Atrial flutter, unspecified type [...] Take 1 tablet by mouth daily Active [employer] EducationTouch Ultra Test strip USE 1 STRIP TO [...] on file 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 Gender Identity Not on file Sexual Orientation Not on file Last Filed Vital Signs Vital Sign Reading Time Taken Comments Blood Pressure 101/59 08/14/2024 10:09 AM CDT Pulse 67 08/14/2024 10:09 AM CDT Temperature 36.7 C (98.1 F) 07/13/2023 1:30 PM EMPLOYMENT LEGAL ASSISTANT Respiratory Rate 16 10/16/2023 8:13 AM CDT Oxygen Saturation 95% 08/14/2024 10:09 AM CDT Inhaled Oxygen Concentration - - Weight 85.8 kg (189 lb 3.2 oz) 08/14/2024 10:09 AM CDT Height 170.2 cm (5' 7 ) 08/14/2024 10:09 AM CDT Body Mass Index 29.63 08/14/2024 10:09 AM CDT Plan of Treatment Not on file Medical Devices Implanted Type Area Tire Service Supervisor Device Identifier Shelf Expiration Date Model / Serial / Lot [employer] Vascade Mvp 6-12fr Venous Closure [id number] - [id number] Implanted:Qty : 1 on 07/13/2023 by Volodymyr Richards MD at [facility] Collagen Right: Common Femoral Artery [employer] 03/21/2025 800-612C- 10U / / [id number] [employer] Vascade Mvp 6-12fr Venous Closure [id number] - [id number] Implanted:Qty : 1 on 07/13/2023 by Volodymyr Richards MD at [facility] Collagen Right: Common Femoral Artery [employer] 03/15/2025 800-612C- 10U / / [id number] [employer] Vascade Mvp 6-12fr Venous Closure [id number] - [id number] Implanted:Qty : 1 on 07/13/2023 by Volodymyr Richards MD at [facility] Collagen Right: Common Femoral Artery [employer] 03/15/2025 800-612C- 10U / / [id number] Mesh Mesh Bilateral: Inguinal Urolift Bladder Joint Right: First Toe Procedures Procedure Name Priority Date/Time Associated Diagnosis Comments CARDIOLOGY DOCUMENT SCAN 08/26/2024 9:57 AM CDT SCAN - LABS 08/25/2024 3:17 PM CDT ECG 12-LEAD Routine 08/14/2024 10:11 AM CDT Atrial flutter, unspecified type (HCC) from Last 3 Months Results * Cardiology Document Scan (08/26/2024 9:57 AM CDT) Anatomical Region Laterality Modality Other us Federico Tsai MD CV CARDIAC SERVICES PRO CEDURES Final Result * SCAN - LABS (08/25/2024 3:17 PM CDT) us Federico Tsai MD Final R esult * ECG 12 lead (08/14/2024 10:11 AM CDT) us Ramona Orozco MANAGER FLIGHT OPERATIONS ECG ORDERABLES Edited R esult - Final from Last 3 Months Insurance COMMERCIAL GENERIC COMMERCIAL GENERIC Care Teams Video Manager Relationship Specialty Start Date End Date Toño Anthony MD [address] [facility] [address] [place] [address] PCP - General Internal Medicine 11/18/22
--- OUTSIDE RECORDS SUMMARY | 2024-09-08 14:03 | XMS_ITS | Encounter Summary ---
Author Organization [facility] Address [address] [place] [address] Care Team Providers Care Window Glass Cutter Off Name Role Phone Unavailable Primary Care Provider Unavailabl e Encounter Details Date Type Department Care Team (Late st Contact Info) Description 02/14/2024 Lab Requisition [facility] Physician [facility] - DermPath Lab [address] [place] [address] Bhavik Hermosillo MD [address] [place] [address] Social History Tobacco Use Types Packs/Day Years Used Date Smoking Tobacco: Never Assessed Sex and Gender Information Value Date Recorded Sex Assigned at Not on file Legal Sex Male 4:01 PM CDT Gender Identity Not on file Sexual Orientation Not on file documented as of this encounter Plan of Treatment Not on file documented as of this encounter Procedures Procedure Name Priority Date/Time Associated Diagnosis Comments DERMATOPATHOLOGY Routine 02/14/2024 3:3 3 AM CDT documented in this encounter Results * DERMATOPATHOLOGY (02/14/2024 3:33 AM CDT) Case Report Dermatopathology Report Case: [id number] Authorizing Provider: Bhavik Hermosillo MD Collected: 02/14/2024 03:33 AM Ordering Location: [facility] Physician [facility] - Received: 02/14/2024 04:13 PM DermPath Lab [...] characteristic determined by the Dermatopathology Laboratory at [facility], directed by Dr. Bing Espinoza. These tests need not be, and therefore are not, approved by the [place] Food and Drug Administration. The tests are used for clinical purposes. Billing Codes Specimen Charges Stain Charges 83038 1 38571 31625 1 1 1:15 PM CDT DERMATOPATHOLOGY LABORATORY Embedded Images 1:15 PM CDT DERMATOPATHOLOGY LABORATORY Pathology/Cytolo gy TISSUE SPECIMEN FROM SKIN / Unknown 02/14/2024 3:33 AM CDT 02/14/2024 4:13 PM CDT Bhavik Hermosillo MD LAB - PATHOLOGY/CYTOLOGY ORDERAB LES Final Result DERMATOPATHOLOGY LABORATORY [facility] - Department of Dermatology [address], 3rd Floor [address] [phone] documented in this encounter Visit Diagnoses Not on filedocumented in this encounter
--- OUTSIDE RECORDS SUMMARY | 2024-09-08 14:03 | XMS_ITS | Clinical Summary ---
Author Organization [facility] Address [address] [place] [address] Care Team Providers Care Sales Agent Trading Stamps Name Role Phone Unavailable Primary Care Provider Unavailabl e Source Comments [facility],non-owned Affiliates and Associated Physician Practices is amultiple site organization consisting of ambulatory clinics and hospital sitesin [place], [place], [place] and [place]. This disclosure is being madepursuant to the Care Everywhere program and may not contain all information available regarding this patient. Last updated 18.[facility] Social History Tobacco Use Types Packs/Day Years [...] VACCINE ( - 2023-2 5 season) 2024 DEPRESSION SCREENING 05/21/2024 INFLUENZA VACCINE (Season Ended) 2025 Respiratory Syncytial Virus (RSV) Vaccine Pt: or [...] on patient's age to complete this topic Insurance MEDICARE [facility] [place] [address]
--- OUTSIDE RECORDS SUMMARY | 2024-09-08 14:03 | XMS_ITS | Clinical Summary ---
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
--- OUTSIDE RECORDS SUMMARY | 2024-09-08 14:03 | XMS_ITS | Clinical Summary ---
Author Organization [facility] [place] [address] Address [address] [place] [address] Care Team Providers Care Pararescue Craftsman Name Role Phone Toño Anthony MD Primary Care Provider [phone] Allergies No known active allergies Medications rosuvastatin [...] Care Team Description 08/26/2024 Orders Only [facility] Federico Tsai MD 08/25/2024 Orders Only [facility] Federico Tsai MD 08/14/2024 10:30 AM CDT Office Visit [facility] Cardiology [facility] Medicine 8th [place] [address] [place] [address] Ramona Orozco NP High risk medications (not anticoagulants) long-term use (Primary Dx); Atrial flutter, unspecified type (HCC) 08/14/2024 Results Follow-Up [facility] Cardiology [facility] 8th [place] [address] [place] [address] Ramona Orozco NP 07/18/2024 8:00 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 UNIT REBUILDER Office Visit [facility] Cardiology [address] [facility] [address] [place] [address] Kesha Messer NP Atrial flutter, [...] on file 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:46 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 UNIT 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 Gender Identity Not on file Sexual Orientation Not on file Obstetrics History Last Filed Vital Signs Vital Sign Reading Time Taken Comments Blood Pressure 101/59 08/14/2024 10:09 AM CDT Pulse 67 08/14/2024 10:09 AM CDT Temperature 36.7 C (98.1 F) 07/13/2023 1:30 PM ELECTRICAL UNIT REBUILDER Respiratory Rate 16 10/16/2023 8:13 AM CDT [...] 02/18, 04/20/2014 Medical Devices Implanted Type Area Kiss Mixer Device Identifier Shelf Expiration Date Model / Serial / Lot [employer] Vascade Mvp 6-12fr Venous Closure [id number] - [id number] Implanted:Qty : 1 on 07/13/2023 by Volodymyr Richards MD at [facility] Collagen Right: Common Femoral Artery [employer] 03/21/2025 800-612C- 10U / / [id number] [employer] Vascade Mvp 6-12fr Venous Closure [id number] - [id number] Implanted:Qty : 1 on 07/13/2023 by Volodymyr Richards MD at [facility] Collagen Right: Common Femoral Artery [employer] 03/15/2025 800-612C- 10U / / [id number] [employer] Vascade Mvp 6-12fr Venous Closure [id number] - [id number] Implanted:Qty : 1 on 07/13/2023 by Volodymyr Richards MD at [facility] Collagen Right: Common Femoral Artery [employer] 03/15/2025 800-612C- 10U / / [id number] Mesh Mesh Bilateral: Inguinal Urolift Bladder Joint Right: First Toe Procedures Procedure Name Priority Date/Time Associated Diagnosis Comments CARDIOLOGY DOCUMENT SCAN 08/26/2024 9:57 AM CDT SCAN - LABS 08/25/2024 3:17 PM CDT ECG 12-LEAD Routine 08/14/2024 10:11 AM CDT Atrial flutter, unspecified type (HCC) from Last 3 Months Results * Cardiology Document Scan (08/26/2024 9:57 AM CDT) Anatomical Region Laterality Modality Other Federico Tsai MD CV CARDIAC SERVICES PRO CEDURES Final Result * SCAN - LABS (08/25/2024 3:17 PM CDT) Federico Tsai MD Final R esult * ECG 12 lead (08/14/2024 10:11 AM CDT) Ramona Orozco PALEOLOGY PROFESSOR ECG ORDERABLES Edited R esult - Final from Last 3 Months Insurance MEDICARE COMMERCIAL GENERIC MEDICARE COMMERCIAL GENERIC Care Teams Pararescue Craftsman Relationship Specialty Start Date End Date Toño Anthony MD [address] [facility] [address] [facility] [address] [place] [address] PCP - General Internal Medicine 11/18/22
[2024-09-08 14:04] LABS: Anion Gap 5 mmol/L (4-12); Blood Urea Nitrogen 18 mg/dL (9-20); Calcium 9.6 mg/dL (8.4-10.2); Carbon Dioxide 30 mmol/L (22-30); Chloride 101 mmol/L (98-107); Estimated Glomerular Filt Rate 52; Glucose 104 mg/dL (65-110); Potassium 4.7 mmol/L (3.4-5.0); Sodium 136 mmol/L (137-145)
[2024-09-08 14:16] LABS: Add Urine Microscopic? NO; Appearance Urine Clear (Clear); Bilirubin Urine Negative (Negative); Blood Urine Negative (Negative); Color Urine Yellow (Yellow); Glucose Urine UA 3+ mg/dL (Negative); Ketones Urine Negative (Negative); Leukocyte Esterase Ur Negative LEU/UL (Negative); Nitrate Urine Negative (Negative); Protein Urine Negative (Negative); Urobilinogen Urine 0.2 mg/dL (<2.0); pH Urine 5.5 (5.0-9.0)
== END 2024-09-08 12:42 | disposition home or self-care (01) ==
PROVIDERS: PCP Internal Medicine; Visit Provider Internal Medicine
DX: R74.8 Abnormal levels of other serum enzymes (principal); R79.89 Other specified abnormal findings of blood chemistry
CPT/HCPCS: 36415; 80048; 81003

== ENCOUNTER 2024-11-28 08:46 | Outpatient (CLI) | payer MEDICARE, SELFPAY ==
--- OUTSIDE RECORDS SUMMARY | 2024-11-28 08:52 | XMS_ITS | Referral Summary ---
Author Organization [facility] [place] [address] [facility] [address] Address [address] [place] [address] Care Team Providers Care Automatic Glove Former Name Role Phone Toño Anthony MD Primary Care Provider [phone] Encounters Date Type Department Care Team Description 11/11/2024 Telephone [facility] Cardiology [address] [place] [address] Kesha Messer NP from Last 3 Months Allergies No known active allergies Medications rosuvastatin (CRESTOR) 5 mg tablet Take 1 tablet (5 mg total) by mouth every other day 10/30/2022 Active warfarin (COUMADIN) 5 mg tablet Take 1 tablet (5 mg total) by mouth as directed 5 mg for 2 days then 6 mg for 1 day. 10/30/2022 Active warfarin (COUMADIN) 4 mg tablet 5 mg for 2 days then 6 mg for 1 day 11/04/2022 Active warfarin (COUMADIN) 2 mg tablet 5 mg for 2 days then 6 mg for 1 day 10/30/2022 Active omega-3 fatty acids-fish oil 300-1,000 mg [...] 1 STRIP TO CHECK GLUCOSE ONCE DAILY 01/20/2023 Active calcium carb/vit D3/minerals (CALCIUM-VITAMI N D [...] tablet (10 mg total) by mouth daily 02/13/2024 Active metoprolol XL (TOPROL-XL) 50 mg extended release tablet Take 1 tablet (50 mg total) by mouth daily 90 tablet 3 03/24/2024 03/24/20 25 Active lisinopriL (PRINIVIL,ZESTR IL) 2.5 mg tablet Take 1 tablet (2.5 mg total) by mouth daily 08/04/2024 Active dronedarone (MULTAQ) 400 mg tablet Take 1 tablet (400 mg total) by mouth 2 (two) times a day with meals 60 tablet 5 08/14/2024 08/10/19 26 Active Active Problems Problem Noted Date Diagnosed Date [...] on file 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 Gender Identity Not on file Sexual Orientation Not on file Last Filed Vital Signs Vital Sign Reading Time Taken Comments Blood Pressure 101/59 08/14/2024 10:09 AM CDT Pulse 67 08/14/2024 10:09 AM CDT Temperature 36.7 C (98.1 F) 07/13/2023 1:30 PM COMPUTER NETWORKING INSTRUCTOR ADJUNCT Respiratory Rate 16 10/16/2023 8:13 AM CDT Oxygen Saturation 95% 08/14/2024 10:09 AM CDT Inhaled Oxygen Concentration - - Weight 85.8 kg (189 lb 3.2 oz) 08/14/2024 10:09 AM CDT Height 170.2 cm (5' 7) 08/14/2024 10:09 AM CDT Body Mass Index 29.63 08/14/2024 10:09 AM CDT Plan of Treatment Not on file Medical Devices Implanted Type Area Asbestos Hazard Abatement Worker Device Identifier Shelf Expiration Date Model / Serial / Lot [employer] Vascade Mvp 6-12fr Venous Closure [id number] - [id number] Implanted:Qty : 1 on 07/13/2023 by Volodymyr Richards MD at [facility] Collagen Right: Common Femoral Artery [employer] 03/21/2025 800-612C- 10U / / [id number] [employer] Vascade Mvp 6-12fr Venous Closure [id number] - [id number] Implanted:Qty : 1 on 07/13/2023 by Volodymyr Richards MD at [facility] Collagen Right: Common Femoral Artery [employer] 03/15/2025 800-612C- 10U / / [id number] [employer] Vascade Mvp 6-12fr Venous Closure [id number] - [id number] Implanted:Qty : 1 on 07/13/2023 by Volodymyr Richards MD at [facility] Collagen Right: Common Femoral Artery [employer] 03/15/2025 800-612C- 10U / / [id number] Mesh Mesh Bilateral: Inguinal Urolift Bladder Joint Right: First Toe Insurance MEDICARE COMMERCIAL GENERIC COMMERCIAL GENERIC Care Teams Automatic Glove Former Relationship Specialty Start Date End Date Toño Anthony MD [address] [place] [address] PCP - General Internal Medicine 11/18/22
--- OUTSIDE RECORDS SUMMARY | 2024-11-28 08:52 | XMS_ITS | Clinical Summary ---
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 [...] (1 of 2) 2007 INFLUENZA VACCINE (#1) 2024 COLORECTAL SCREENING 01/02/2027 01/02/2017 Colorectal Cancer Screening 01/02/2027 RSV VACCINE (60+ or ) (1 - 1-dose 75+ series) 02/21/2032 Care Teams Rn Assessment Relationship Specialty Start Date End Date Toño Anthony MD [address] [place] [address] PCP - General Internal Medicine 01/29/18
--- OUTSIDE RECORDS SUMMARY | 2024-11-28 08:52 | XMS_ITS | Clinical Summary ---
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 Gender Identity Not on file Sexual Orientation Not on file Obstetrics History Last Filed Vital Signs Vital Sign Reading Time Taken Comments Blood Pressure 101/59 08/14/2024 10:09 AM CDT Pulse 67 08/14/2024 10:09 AM CDT Temperature 36.7 C (98.1 F) 07/13/2023 1:30 PM CHIP DRIER Respiratory Rate 16 10/16/2023 8:13 AM CDT [...] Fall Risk Assessment 07/13/2024 07/13/2023 Influenza Vaccine (#1) 2025 , 02/13/2021, 02/19/2012 Zoster Vaccine Completed 07/11/2020, 02/18, 04/20/2014 Medical Devices Implanted Type Area Cleaner And Preparer Device Identifier Shelf Expiration Date Model / Serial / Lot Au [employer] Vascade Mvp 6-12fr Venous Closure [id number] - [id number] Implanted:Qty : 1 on 07/13/2023 by Volodymyr Richards MD at [facility] Collagen Right: Common Femoral Artery [employer] 03/21/2025 800-612C- 10U / / [id number] [employer] Vascade Mvp 6-12fr Venous Closure [id number] - [id number] Implanted:Qty : 1 on 07/13/2023 by Volodymyr Richards MD at [facility] Collagen Right: Common Femoral Artery [employer] 03/15/2025 800-612C- 10U / / [id number] [employer] Vascade Mvp 6-12fr Venous Closure [id number] - [id number] Implanted:Qty : 1 on 07/13/2023 by Volodymyr Richards MD at [facility] Collagen Right: Common Femoral Artery [employer] 03/15/2025 800-612C- 10U / / [id number] Mesh Mesh Bilateral: Inguinal Urolift Bladder Joint Right: First Toe Insurance MEDICARE COMMERCIAL GENERIC MEDICARE COMMERCIAL GENERIC Care Teams Suture Winder Hand Relationship Specialty Start Date End Date Toño Anthony MD [address] [facility] [address] [facility] [address] MEDIC[address] [place] [id number] PCP - General Internal Medicine 11/18/22
--- OUTSIDE RECORDS SUMMARY | 2024-11-28 08:52 | XMS_ITS | Encounter Summary ---
Author Organization [facility] Address [address] [place] [address] Care Team Providers Care Photography Sales Associate Name Role Phone Unavailable Primary Care Provider Unavailabl e Encounter Details Date Type Department Care Team (Late st Contact Info) Description 02/14/2024 Lab Requisition [facility] Physician [facility] - DermPath Lab [address] [place] [id number] Bhavik Hermosillo MD [address] [place] [address] Social History Tobacco Use Types [...] AM CDT) Case Report Dermatopathology Report Case: [id number] Authorizing Provider: Bhavik Hermosillo MD Collected: 02/14/2024 03:33 AM Ordering Location: [facility] Physician [facility] - Received: 02/14/2024 04:13 PM DermPath Lab Pathologist: Malgorzata Busby MD Specimen: Skin, mid upper lip 1:15 PM CDT DERMATOPATHOLOGY LABORATORY Final Diagnosis Specimen A. 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, directed by Dr. Bing Espinoza. These tests need not be, and therefore are not, approved by the [place] Food and Drug Administration. The tests are used for clinical purposes. Billing Codes Specimen Charges Stain Charges 00860 1 34728 66283 1 1 1:15 PM CDT DERMATOPATHOLOGY LABORATORY Embedded Images 1:15 PM CDT DERMATOPATHOLOGY LABORATORY Pathology/Cytolo gy TISSUE SPECIMEN FROM SKIN / Unknown 02/14/2024 3:33 AM CDT 02/14/2024 4:13 PM CDT Bhavik Hermosillo MD LAB - PATHOLOGY/CYTOLOGY ORDERAB LES Final Result DERMATOPATHOLOGY LABORATORY [facility] - Department of Dermatology [address], [address] [phone] documented in this encounter Visit Diagnoses Not on filedocumented in this encounter
--- OUTSIDE RECORDS SUMMARY | 2024-11-28 08:52 | XMS_ITS | Clinical Summary ---
Author Organization [facility] Address [address] [place] [address] Care Team Providers Care Forming Yardage Control Operator Name Role Phone Unavailable Primary Care Provider Unavailabl e Source Comments [facility],non-owned Affiliates and Associated Physician Practices is amultiple site organization consisting of ambulatory clinics and hospital sitesin [place], [place] and [place]. This disclosure is being madepursuant to the Care Everywhere program and may not contain all information available regarding this patient. Last updated 18.[facility] Social History Tobacco Use Types Packs/Day Years [...] season) 2024 DEPRESSION SCREENING 05/21/2024 INFLUENZA VACCINE (#1) 2025 Respiratory Syncytial Virus (RSV) Vaccine Pt: [...] age to complete this topic Insurance MEDICARE [facility]
[2024-11-28 11:56] LABS: Hematocrit 47.0 % (42.0-52.0); Hemoglobin 15.0 g/dL (14.0-18.0); Immature Granulocyte Percent A 0.2 % (0-0.5); Lymphocytes Absolute Auto 1.00 K/mm3 (0.9-3.2); Mean Corpuscular HGB Conc 31.9 g/dl (32-36); Mean Corpuscular Hemoglobin 32.1 pg (26-34); Mean Corpuscular Volume 100.6 fl (80-100); Nucleated Red Blood Cells Absolute Auto 0.000 K/mm3 (0.0-0.012); Nucleated Red Blood Cells Perc 0.0 % (0.0-0.2); Platelet Count Result 177 k/mm3 (150-375); Red Blood Count 4.67 M/mm3 (4.6-6.20); White Blood Count 4.1 K/mm3 (4.5-10.0)
[2024-11-28 12:04] LABS: Add Urine Microscopic? NO; Appearance Urine Clear (Clear); Glucose Urine UA 3+ mg/dL (Negative); Leukocyte Esterase Ur Negative LEU/UL (Negative); Nitrate Urine Negative (Negative); Specific Grav Ur 1.035 (1.001-1.035)
[2024-11-28 12:17] LABS: Alanine Aminotransferase 46 U/L (6-50); Albumin Level 4.2 g/dL (3.5-5.1); Alkaline Phosphatase 35 U/L (38-126); Anion Gap 7 mmol/L (4-12); Aspartate Amino Transferase 87 U/L (17-59); Bilirubin,Total 0.5 mg/dL (0.2-1.3); Blood Urea Nitrogen 26 mg/dL (9-20); Calcium 9.0 mg/dL (8.4-10.2); Carbon Dioxide 28 mmol/L (22-30); Chloride 104 mmol/L (98-107); Cholesterol 123 mg/dL (0-200); Estimated Glomerular Filt Rate 45; Glucose 112 mg/dL (65-110); HDL Direct 58 mg/dL; Potassium 4.5 mmol/L (3.4-5.0); Sodium 139 mmol/L (137-145); Total Protein 6.9 g/dL (6.3-8.2); Triglycerides 65 mg/dL (<150)
[2024-11-28 12:49] LABS: Free T4 Free Thyroxine 1.39 ng/dL (0.78-2.19)
[2024-11-28 13:01] LABS: Hemoglobin A1C 6.1 % (<5.7)
[2024-11-28 13:18] LABS: Thyroid Stimulating Hormone 1.810 uIU/mL (0.465-4.680)
== END 2024-11-28 08:47 | disposition home or self-care (01) ==
PROVIDERS: PCP Internal Medicine; Visit Provider Internal Medicine
DX: I48.91 Unspecified atrial fibrillation (principal); Z13.29 Encounter for screening for other suspected endocrine disorder; E55.9 Vitamin D deficiency, unspecified; E78.2 Mixed hyperlipidemia; E11.9 Type 2 diabetes mellitus without complications; R74.8 Abnormal levels of other serum enzymes; Z79.899 Other long term (current) drug therapy
CPT/HCPCS: 36415; 80053; 80061; 81003; 82306; 83036; 84439; 84443; 85025

== ENCOUNTER 2025-02-02 11:02 | Outpatient (CLI) | payer MEDICARE, SELFPAY ==
--- OUTSIDE RECORDS SUMMARY | 2025-02-02 13:06 | XMS_ITS | Clinical Summary ---
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
--- OUTSIDE RECORDS SUMMARY | 2025-02-02 13:06 | XMS_ITS | Clinical Summary ---
Author Organization [facility] [address] Address [address] [place] [address] Care Team Providers Care Tab Card Press Operator Name Role Phone Toño Anthony MD Primary Care Provider [phone] Allergies No known active allergies Medications rosuvastatin (CRESTOR) 5 mg tablet Take 1 tablet (5 mg total) by mouth every other day 10/31/19 23 Active warfarin (COUMADIN) 5 mg tablet Take 1 tablet (5 mg total) by mouth as directed 5 mg for 2 days then 6 mg for 1 day. 10/31/19 23 Active warfarin (COUMADIN) 4 mg tablet 5 mg for 2 days then 6 mg for 1 day 11/05/19 23 Active warfarin (COUMADIN) 2 mg tablet 5 mg for 2 days then 6 mg for 1 day 10/31/19 23 Active omega-3 fatty acids-fish oil 300-1,000 mg [...] 1 STRIP TO CHECK GLUCOSE ONCE DAILY 01/21/20 23 Active calcium carb/vit D3/minerals (CALCIUM-VITAMI N D [...] tablet (10 mg total) by mouth daily 02/13/20 24 Active lisinopriL (PRINIVIL,ZESTR IL) 2.5 mg tablet Take 1 tablet (2.5 mg total) by mouth daily 08/05/19 25 Active polycarbophil (FIBERCON) 625 mg tablet Take 1 tablet (625 mg total) by mouth daily Active metoprolol XL (TOPROL-XL) 50 mg extended release tabletIndicatio ns:Atrial flutter, unspecified type (HCC) Take 1 tablet (50 mg total) by mouth daily 90 tablet 3 01/16/20 25 026 Active Multaq 400 mg tablet TAKE 1 TABLET BY MOUTH TWICE DAILY WITH MEALS 60 tablet 01/29/20 25 Active metoprolol XL (TOPROL-XL) 50 mg extended release tablet Take 1 tablet (50 mg total) by mouth daily 90 tablet 3 03/24/20 24 025 Discontinued(Re order) dronedarone (MULTAQ) 400 mg tablet Take 1 tablet (400 mg total) by mouth 2 (two) times a day with meals 60 tablet 5 08/15/19 25 025 Discontinued Active Problems Problem Noted Date Diagnosed Date A-fib 07/13/2023 Paroxysmal atrial fibrillation 05/30/2023 Atrial flutter 12/01/2022 History of DVT (deep vein thrombosis) 12/01/2022 Anticoagulation management encounter 12/01/2022 Hyperlipidemia 12/01/2022 Encounters Date Type Department Care Team Description 01/15/2025 9:30 AM CDT Office Visit [facility] Medical Group Cardiology [address] [facility] [address] [place] [address] Kesha Messer NP Atrial flutter, unspecified type (HCC) (Primary Dx); Paroxysmal atrial fibrillation (HCC); High risk medications (not anticoagulants) long-term use; Chronic anticoagulation; History of DVT (deep vein thrombosis); Hyperlipidemia, unspecified hyperlipidemia type; Abnormal serum creatinine level; Preoperative cardiovascular examination 11/11/2024 Telephone [facility] Medical [facility] Cardiology [address] [facility] [address] [place] [address] Kesha Messer NP from Last 3 Months Surgical History Surgery Date Site/Laterality Comments HERNIA REPAIR 05/21/2007 - 05/20/2008 FOOT SURGERY PROSTATE SURGERY Medical History Medical History Date Comments Atrial fibrillation (HCC) Type 2 diabetes mellitus Factor 5 Leiden deficency Hyperlipidemia Social History [...] on file 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 Gender Identity Not on file Sexual Orientation Not on file Obstetrics History Last Filed Vital Signs Vital Sign Reading Time Taken Comments Blood Pressure 102/60 01/15/2025 9:17 AM CDT Pulse 59 01/15/2025 9:17 AM CDT Temperature 36.7 C (98.1 F) 07/13/2023 1:30 PM PORTRAIT ARTIST Respiratory Rate 16 10/16/2023 8:13 AM CDT Oxygen Saturation 94% 01/15/2025 9:17 AM CDT Inhaled Oxygen Concentration - - Weight 85.6 kg (188 lb 11.2 oz) 01/15/2025 9:17 AM CDT Height 170.2 cm (5' 7) 01/15/2025 9:17 AM CDT Body Mass Index 29.55 01/15/2025 9:17 AM CDT Plan of Treatment Health Maintenance Due Date Last Done Comments Colon Cancer Screening-Colonoscopy 1957 Depression Screening 1957 Hepatitis C Screening 1957 Prostate Cancer Screening-PSA 1957 DTaP/Tdap/Td Vaccine (1 - Tdap) 02/21/1968 Hepatitis B Screening 1975 Pneumococcal vaccine 65+ (2 of 2 - PCV) 04/12/2019 04/12/2018, 04/20/2014 Well Visit 65+ 2022 Fall Risk Assessment 07/13/2024 07/13/2023 Covid-19 Vaccine (6 2024-2 6 season) 2025 03/22/2022, 11/13/2021, 05/01/2021, Additional history exists Influenza Vaccine (#1) 2025 , 02/13/2021, 04/05/2016, Additional history exists Zoster Vaccine Completed 07/11/2020, 02/18, 04/20/2014 Medical Devices Implanted Type Area Patient Coordinator Front Desk Device Identifier Shelf Expiration Date Model / Serial / Lot [employer] Vascade Mvp 6-12fr Venous Closure [id number] - [id number] Implanted:Qty : 1 on 07/13/2023 by Volodymyr Richards MD at [facility] Collagen Right: Common Femoral Artery [employer] 03/21/2025 800-612C- 10U / / [id number] [employer] Vascade Mvp 6-12fr Venous Closure [id number] - [id number] Implanted:Qty : 1 on 07/13/2023 by Volodymyr Richards MD at [facility] Collagen Right: Common Femoral Artery [employer] 03/15/2025 800-612C- 10U / / [id number] [employer] Vascade Mvp 6-12fr Venous Closure [id number] - [id number] Implanted:Qty : 1 on 07/13/2023 by Volodymyr Richards MD at [facility] Collagen Right: Common Femoral Artery [employer] 03/15/2025 800-612C- 10U / / [id number] Mesh Mesh Bilateral: Inguinal Urolift Bladder Joint Right: First Toe Insurance MEDICARE COMMERCIAL GENERIC COMMERCIAL GENERIC Care Teams Tab Card Press Operator Relationship Specialty Start Date End Date Toño Anthony MD [address] [place] [address] PCP - General Internal Medicine 11/18/22
--- OUTSIDE RECORDS SUMMARY | 2025-02-02 13:06 | XMS_ITS | Clinical Summary ---
Author Organization [facility] Address [address] [place] [address] Care Team Providers Care Charge Authorizer Name Role Phone Unavailable Primary Care Provider Unavailabl e Source Comments [facility],non-owned Affiliates and Associated Physician Practices is amultiple site organization consisting of ambulatory clinics and hospital sitesin [place], [place], [place] and [place]. This disclosure is being madepursuant to the Care Everywhere program and may not contain all information available regarding this patient. Last updated 18.[facility] Social History Tobacco Use Types Packs/Day Years [...] 2007 ZOSTER VACCINE (1 of 2) 2007 DEPRESSION SCREENING 05/21/2024 COVID-19 VACCINE (1 - 2023-2 5 season) 2025 INFLUENZA VACCINE (#1) 2025 Respiratory Syncytial Virus [...] topic Insurance MEDICARE [facility] [address]
--- OUTSIDE RECORDS SUMMARY | 2025-02-02 13:06 | XMS_ITS | Encounter Summary ---
Author Organization [facility] Address [address] [place] [address] Care Team Providers Care Door To Door Lead Generation Name Role Phone Unavailable Primary Care Provider Unavailabl e Encounter Details Date Type Department Care Team (Late st Contact Info) Description 02/14/2024 Lab Requisition [facility] Physician [facility] - DermPath Lab [address] [place] [phone] Bhavik Hermosillo MD [address] [place] [address] Social History Tobacco Use Types [...] AM CDT) Case Report Dermatopathology Report Case: [id number] Authorizing Provider: Bhavik Hermosillo MD Collected: 02/14/2024 03:33 AM Ordering Location: [facility] - Received: 02/14/2024 04:13 PM DermPath [...] characteristic determined by the Dermatopathology Laboratory at [facility], directed by Dr. Bing Espinoza. These tests need not be, and therefore are not, approved by the [place] Food and Drug Administration. The tests are used for clinical purposes. Billing Codes Specimen Charges Stain Charges 39799 1 57014 41011 1 1 1:15 PM CDT DERMATOPATHOLOGY LABORATORY Embedded Images 1:15 PM CDT DERMATOPATHOLOGY LABORATORY Pathology/Cytolo gy TISSUE SPECIMEN FROM SKIN / Unknown 02/14/2024 3:33 AM CDT 02/14/2024 4:13 PM CDT us Bhavik Hermosillo MD LAB - PATHOLOGY/CYTOLOGY ORDERAB LES Final Result DERMATOPATHOLOGY LABORATORY [facility] - Department of Dermatology [address], [address] [phone] documented in this encounter Visit Diagnoses Not on filedocumented in this encounter
[2025-02-02 18:39] LABS: INR 2.6; Prothrombin Time 27.0 Seconds (11.1-14.7)
[2025-02-02 18:51] LABS: Aspartate Amino Transferase 104 U/L (17-59)
[2025-02-03 07:09] LABS: PSA, Free 0.37 ng/mL
== END 2025-02-02 11:03 | disposition home or self-care (01) ==
PROVIDERS: PCP Internal Medicine; Visit Provider Internal Medicine
DX: I48.91 Unspecified atrial fibrillation (principal); I48.92 Unspecified atrial flutter; R97.20 Elevated prostate specific antigen [PSA]; Z79.899 Other long term (current) drug therapy
CPT/HCPCS: 36415; 84153; 84154; 84450; 85610

== ENCOUNTER 2025-04-20 13:12 | Outpatient (CLI) | payer MEDICARE, SELFPAY ==
--- OUTSIDE RECORDS SUMMARY | 2025-04-20 14:20 | XMS_ITS | Encounter Summary ---
Author Organization [facility] Address [address] [place] [address] Care Team Providers Care Patent Prosecution Paralegal Name Role Phone Unavailable Primary Care Provider Unavailabl e Encounter Details Date Type Department Care Team (Late st Contact Info) Description 02/14/2024 Lab Requisition [facility] Physician [facility] - DermPath Lab [address] [place] [phone] Bhavik Hermosillo MD [address] [place] [address] Social History Tobacco Use Types [...] AM CDT) Case Report Dermatopathology Report Case: [id number] Authorizing Provider: Bhavik Hermosillo MD Collected: 02/14/2024 03:33 AM Ordering Location: [facility] - Received: 02/14/2024 04:13 PM DermPath [...] characteristic determined by the Dermatopathology Laboratory at [facility], directed by Dr. Bing Espinoza. These tests need not be, and therefore are not, approved by the [place] Food and Drug Administration. The tests are used for clinical purposes. Billing Codes Specimen Charges Stain Charges 54068 1 75477 39470 1 1 1:15 PM CDT DERMATOPATHOLOGY LABORATORY Embedded Images 1:15 PM CDT DERMATOPATHOLOGY LABORATORY Pathology/Cytolo gy TISSUE SPECIMEN FROM SKIN / Unknown 02/14/2024 3:33 AM CDT 02/14/2024 4:13 PM CDT us Bhavik Hermosillo MD LAB - PATHOLOGY/CYTOLOGY ORDERAB LES Final Result DERMATOPATHOLOGY LABORATORY [facility] - Department of Dermatology [address] [phone] documented in this encounter Visit Diagnoses Not on filedocumented in this encounter
--- OUTSIDE RECORDS SUMMARY | 2025-04-20 14:20 | XMS_ITS | Clinical Summary ---
Author Organization [facility] [address] Address [address] [place] [address] Care Team Providers Care Cathode Washer Name Role Phone Toño Anthony MD Primary Care Provider [phone] Allergies No known active allergies Medications rosuvastatin [...] (1,000 mg total) by mouth daily Active multivit-min/patirck kevin fumarate (MULTI VITAMIN ORAL) Take 1 tablet by mouth daily Active OneTouch Ultra Test strip USE 1 STRIP TO CHECK GLUCOSE ONCE DAILY 3 Active calcium carb/vit D3/minerals (CALCIUM-VITAMIN D ORAL) Take 600 mg by mouth 2 (two) times a day Active niacinamide 500 mg tablet Take 2 tablets (1,000 mg total) by mouth 2 (two) times a day with meals Active warfarin (COUMADIN) 1 mg tablet Take 1 tablet (1 mg total) by mouth Active Farxiga 10 mg tablet Take 1 tablet (10 mg total) by mouth daily 4 Active lisinopriL (PRINIVIL,ZESTRI L) 2.5 mg tablet Take 1 tablet (2.5 mg total) by mouth daily 5 Active polycarbophil (FIBERCON) 625 mg tablet Take 1 tablet (625 mg total) by mouth daily Active metoprolol XL (TOPROL-XL) 50 mg extended release tabletIndication s:Atrial flutter, unspecified type (HCC) Take 1 tablet (50 mg total) by mouth daily 90 tablet 3 5 01/16/20 26 Active dronedarone (Multaq) 400 mg tablet Take 1 tablet (400 mg total) by mouth 2 (two) times a day with meals 60 tablet 5 5 Active Active Problems Problem Noted Date Diagnosed Date A-fib 07/13/2023 Paroxysmal atrial fibrillation 05/30/2023 Atrial flutter 12/01/2022 History of DVT (deep vein thrombosis) 12/01/2022 Anticoagulation management encounter 12/01/2022 Hyperlipidemia 12/01/2022 Encounters Date Type Department Care Team Description 02/12/2025 11:15 AM CDT Office Visit [facility] Medicine Cardiology [address] [place] [address] Advanced Medicine [address]th [place] [address] [place] [address] Ramona Orozco NP Atrial flutter, unspecified type (HCC) (Primary Dx) 02/12/2025 Results Follow-Up [facility] Medicine Cardiology [address] [facility] Medical Office Building [address] [place] [address] Ramona Orozco NP ECG 12 lead from Last 3 Months Surgical History Surgery [...] on file 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 Gender Identity Not on file Sexual Orientation Not on file Last Filed Vital Signs Vital Sign Reading Time Taken Comments Blood Pressure 104/68 02/12/2025 11:11 AM CDT Pulse 63 02/12/2025 11:11 AM CDT Temperature 36.7 C (98.1 F) 07/13/2023 1:30 PM MATERIAL MANAGER Respiratory Rate 16 10/16/2023 8:13 AM CDT Oxygen Saturation 95% 02/12/2025 11:11 AM CDT Inhaled Oxygen Concentration - - Weight 86.2 kg (190 lb) 02/12/2025 11:11 AM CDT Height 170.2 cm (5' 7) 02/12/2025 11:11 AM CDT Body Mass Index 29.76 02/12/2025 11:11 AM CDT Plan of Treatment Health Maintenance Due Date Last Done Comments Colon Cancer Screening-Colonoscopy 1957 Depression Screening 1957 Hepatitis C Screening 1957 Prostate Cancer Screening-PSA 1957 DTaP/Tdap/Td Vaccine (1 - Tdap) 02/21/1968 Hepatitis B Screening 1975 Pneumococcal vaccine 65+ (2 of 2 - PCV) 04/12/2019 04/12/2018, 04/20/2014 Well Visit 65+ 2022 Fall Risk Assessment 07/13/2024 07/13/2023 Covid-19 Vaccine (2024-2 6 season) 2025 03/22/2022, 11/13/2021, 05/01/2021, Additional history exists Influenza Vaccine (#1) 2025 2, 02/13/2021, 04/05/2016, Additional history exists Zoster Vaccine Completed 07/11/2020, 02/18, 04/20/2014 Medical Devices Implanted Type Area Chief Information Officer Device Identifier Shelf Expiration Date Model / Serial / Lot [employer] Vascade Mvp 6-12fr Venous Closure [id number] - [id number] Implanted:Qty : 1 on 07/13/2023 by Volodymyr Richards MD at [facility] Collagen Right: Common Femoral Artery [employer] 03/21/2025 800-612C- 10U / / [id number] [employer] Vascade Mvp 6-12fr Venous Closure [id number] - [id number] Implanted:Qty : 1 on 07/13/2023 by Volodymyr Richards MD at [facility] Collagen Right: Common Femoral Artery [employer] 03/15/2025 800-612C- 10U / / [id number] [employer] Vascade Mvp 6-12fr Venous Closure [id number] - [id number] Implanted:Qty : 1 on 07/13/2023 by Volodymyr Richards MD at [facility] Collagen Right: Common Femoral Artery [employer] 03/15/2025 800-612C- 10U / / [id number] Mesh Mesh Bilateral: Inguinal Urolift Bladder Joint Right: First Toe Procedures Procedure Name Priority Date/Time Associated Diagnosis Comments ECG 12-LEAD Routine 02/12/2025 11:08 AM CDT Atrial flutter, unspecified type (HCC) from Last 3 Months Results * ECG 12 lead (02/12/2025 11:08 AM CDT) us Ramona Orozco SENIOR ESCROW OFFICER ECG ORDERABLES Edited R esult - Final from Last 3 Months Insurance MEDICARE COMMERCIAL GENERIC MEDICARE COMMERCIAL GENERIC Care Teams Cathode Washer Relationship Specialty Start Date End Date Toño Anthony MD PCP - General Internal Medicine 11/18/22
--- OUTSIDE RECORDS SUMMARY | 2025-04-20 14:20 | XMS_ITS | Clinical Summary ---
Author Organization [facility] Address [address] [place] [address] Care Team Providers Care Box Truck Driver Name Role Phone Unavailable Primary Care Provider Unavailabl e Source Comments [facility],non-owned Affiliates and Associated Physician Practices is amultiple site organization consisting of ambulatory clinics and hospital sitesin [place], [place], [place] and [place]. This disclosure is being madepursuant to the Care Everywhere program and may not contain all information available regarding this patient. Last updated 18.[facility] Social History Tobacco Use Types Packs/Day Years [...] DEPRESSION SCREENING 05/21/2024 COVID-19 VACCINE (1 - 2024-2 6 season) 2025 INFLUENZA VACCINE (#1) 2025 Respiratory [...] age to complete this topic Insurance MEDICARE [facility] [id number]
--- OUTSIDE RECORDS SUMMARY | 2025-04-20 14:20 | XMS_ITS | Clinical Summary ---
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
[2025-04-20 19:40] LABS: Hematocrit 49.5 % (42.0-52.0); Hemoglobin 16.4 g/dL (14.0-18.0); Immature Granulocyte Percent A 0.2 % (0-0.5); Lymphocytes Absolute Auto 1.53 K/mm3 (0.9-3.2); Mean Corpuscular HGB Conc 33.1 g/dl (32-36); Mean Corpuscular Hemoglobin 32.3 pg (26-34); Mean Corpuscular Volume 97.4 fl (80-100); Nucleated Red Blood Cells Absolute Auto 0.000 K/mm3 (0.0-0.012); Nucleated Red Blood Cells Perc 0.0 % (0.0-0.2); Platelet Count Result 186 k/mm3 (150-375); Red Blood Count 5.08 M/mm3 (4.6-6.20); White Blood Count 6.1 K/mm3 (4.5-10.0)
[2025-04-20 20:11] LABS: Alanine Aminotransferase 60 U/L (6-50); Albumin Level 4.6 g/dL (3.5-5.1); Alkaline Phosphatase 58 U/L (38-126); Anion Gap 6 mmol/L (4-12); Aspartate Amino Transferase 67 U/L (17-59); Bilirubin,Total 0.8 mg/dL (0.2-1.3); Blood Urea Nitrogen 17 mg/dL (9-20); Calcium 9.8 mg/dL (8.4-10.2); Carbon Dioxide 30 mmol/L (22-30); Chloride 101 mmol/L (98-107); Cholesterol 146 mg/dL (0-200); Estimated Glomerular Filt Rate 44; Glucose 96 mg/dL (65-110); HDL Direct 73 mg/dL; Potassium 4.7 mmol/L (3.4-5.0); Sodium 137 mmol/L (137-145); Total Protein 7.6 g/dL (6.3-8.2); Triglycerides 111 mg/dL (<150)
[2025-04-20 20:27] LABS: Hemoglobin A1C 6.1 % (<5.7)
[2025-04-20 20:39] LABS: Prostate Specific Antigen 4.9 ng/mL (< OR = 4.0); Thyroid Stimulating Hormone 2.700 uIU/mL (0.465-4.680)
[2025-04-20 21:07] LABS: Iron 169 ug/dL (49-181)
[2025-04-20 21:17] LABS: Percent Iron Saturation 47 % (20-50); Vitamin B12 > 1000.0 pg/mL (239-931)
[2025-04-20 21:30] LABS: Free T4 Free Thyroxine 1.58 ng/dL (0.78-2.19)
[2025-04-20 21:48] LABS: Ferritin 76.40 ng/mL (11.1-264)
== END 2025-04-20 13:13 | disposition home or self-care (01) ==
LOC: ANHGOSHLAB 13:13
PROVIDERS: PCP Internal Medicine; Visit Provider Internal Medicine
DX: D64.9 Anemia, unspecified (principal); E11.9 Type 2 diabetes mellitus without complications; E53.8 Deficiency of other specified B group vitamins; E78.2 Mixed hyperlipidemia; Z12.5 Encounter for screening for malignant neoplasm of prostate; Z13.29 Encounter for screening for other suspected endocrine disorder; Z79.899 Other long term (current) drug therapy
CPT/HCPCS: 36415; 80053; 80061; 82607; 82728; 82746; 83036; 83540; 83550; 84153; 84439; 84443; 85025; G0103

== ENCOUNTER 2025-04-27 09:19 | Outpatient (CLI) | payer MEDICARE, SELFPAY ==
[2025-04-27 19:20] LABS: Anion Gap 6 mmol/L (4-12); Blood Urea Nitrogen 21 mg/dL (9-20); Calcium 9.9 mg/dL (8.4-10.2); Carbon Dioxide 31 mmol/L (22-30); Chloride 99 mmol/L (98-107); Estimated Glomerular Filt Rate 46; Glucose 121 mg/dL (65-110); Potassium 3.9 mmol/L (3.4-5.0); Sodium 136 mmol/L (137-145)
== END 2025-04-27 09:20 | disposition home or self-care (01) ==
LOC: ANHGOSHLAB 09:21
PROVIDERS: PCP Internal Medicine; Visit Provider Internal Medicine
DX: R79.89 Other specified abnormal findings of blood chemistry (principal)
CPT/HCPCS: 36415; 80048